=== PATIENT | male | born 1950 | race Caucasian/White ===

== ENCOUNTER 2022-09-21 19:57 | Inpatient (IN) ==
[2022-09-21] MEDS ORDERED: SODIUM CHLORIDE 0.9% 1000ML 1,000 ML IV ONE ×2 (20:16→20:55)
--- NOTE | 2022-09-21 20:25 | Emergency Department Note ---
Impression & Plan Acute alteration in mental status, Prostate cancer metastatic to bone, Acute hyponatremia, Thrombocytopenia, RAYMUNDO (acute kidney injury), Jaundice, Hyperbilirubinemia ED Provider Note NAME: BRYNN JOEL AGE: 72 SEX: M : 1950 ARRIVES VIA: Walk-In INFORMANT: Patient, the patient's daughter ED PROVIDER(S): Crispin Ocampo DO CHIEF COMPLAINT: Weakness HPI: The patient is a 72-year-old male who presented to the emergency department for generalized weakness. The patient has a history of recurrent prostate cancer which is now widely metastatic. As far as his daughter knows it is not metastatic to his liver but it is metastatic to the bone. The patient's been having ongoing and worsening altered mental status over the course of the last few days. She was noticing that he was weak and having difficulty ambulating. He had decreased p.o. intake. The patient is also been noticing that his skin is turning yellow. He has had no falls. He was diagnosed with a urinary tract infection last week but has not been able to tolerate the p.o. Bactrim that was prescribed so he stopped taking it. The patient denies having any fever today. He denies having any headache but he is difficult to get history from. He has been noncompliant with his outpatient medication regimen otherwise. ROS: See above HPI for pertinent positives & negatives. A total of 10 systems reviewed and were otherwise negative. PAST MEDICAL HISTORY: See Below PAST SURGICAL HISTORY: See Below FAMILY HISTORY: See Below SOCIAL HISTORY: See Below HOME MEDICATIONS: See Below ALLERGIES: See Below VITALS: See Below PHYSICAL EXAMINATION: GENERAL: The patient is awake to verbal commands. He does appear to fall asleep quickly when not stimulated. EYES: The conjunctivae are icteric. The pupils are round and reactive. EARS, NOSE, MOUTH AND THROAT: The nose is without any evidence of any deformity. Mucous membranes are dry. NECK: The neck is nontender and supple. RESPIRATORY: Diminished breath sounds are noted throughout. There was mild tachypnea. CARDIOVASCULAR: Tachycardic and regular heart sounds were noted to auscultation. There is no definite murmur. GASTROINTESTINAL: The abdomen is distended. There is no guarding or rigidity. There is right upper quadrant tenderness to palpation. Rectal exam revealed brown stool which was heme-negative. MUSCULOSKELETAL/EXTREMITIES: There is no evidence of gross deformity full range of motion is noted in the hips and shoulders. SKIN: Skin was icteric. There is pedal edema bilaterally. Skin was warm dry.. NEUROLOGIC: Patient is awake to verbal commands. He was oriented to person place and situation. He does recognize his daughter. Strength was symmetric but diminished. MEDICAL DECISION MAKING: The patient is a 72-year-old male who presented to the emergency department for an evaluation of altered mental status. The patient presented with his daughter. The patient has recurrent prostate cancer which is now metastatic to the bone. As far as the patient's family members were aware this is not metastatic to the liver. The family members noticed he was jaundiced. He is also been confused and not taking his medications as prescribed. He was started on an antibiotic for presumed urinary tract infection last week but it is unclear if he is taking this medication. Patient was treated with IV fluids as well as IV antibiotics. His laboratory results would reflect some degree of infection. I discussed the [facility] have agreed to evaluate the patient in the emergency department for further management and disposition. Triage Nursing notes reviewed. Prior medical records reviewed Vital Signs: reviewed and remarkable for hypotension and tachycardia. Differential diagnosis: Infection, dehydration, metabolic abnormality, hypo/hyperglycemia, electrolyte disturbance, anemia, hypoxia, cardiac sources, intracerebral event, toxicologic, neurologic, as well as other pathologies. ER treatment provided: See below Diagnostics interpreted by me: ECG: EKG was obtained in the emergency department. My interpretation is sinus tachycardia at 124 bpm. Right bundle branch block pattern was noted. There were no PVCs. This was compared to a tracing from April 22, 2022. No significant changes were noted. Cardiac Monitoring: An order was placed for continuous cardiac monitoring. The monitor shows a rate of 124 bpm with sinus tachycardia. Laboratory studies: As stated above and show below. Imaging studies: See below. Radiographic imaging was reviewed by myself Consultation(s): I discussed this case with Dr. Ha who is [facility] ED COURSE: Procedures: none Critical Care: I have personally spent greater than 45 minutes of critical care time in the direct management of this patient. This includes bedside care, interpretation of diagnostic studies, and testing, discussion with consultants, patient, and family members, and other required patient management activities. This 45 minutes is in excess of all separately billable procedures. 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 Beliefs That Will Affect Care: Mandaeism marital status: / Current Living Situation: Family current occupational status: retired Feels Safe at Home: Yes Allergies Allergies Allergy/AdvReac Type Severity Reaction Status Date / Time No Known Allergies Allergy Verified 09/15/22 09:38 Home Meds Home Medications Medication Instructions Recorded Confirmed lisinopril 30 mg tablet 15 mg PO QAM 06/06/19 08/24/22 ondansetron HCl 8 mg tablet 8 mg PO Q8H PRN Nausea 06/06/19 08/24/22 prochlorperazine maleate 10 mg 10 mg PO Q6H PRN Nausea 06/06/19 08/24/22 tablet denosumab 120 mg/1.7 mL (70 mg/mL) 0 mg subcut MO 07/03/20 08/24/22 subcutaneous solution (Xgeva) pantoprazole 40 mg tablet,delayed 40 mg PO DAILY 07/03/20 08/24/22 release aspirin 81 mg capsule 81 mg PO DAILY 03/12/22 08/24/22 methylprednisolone 4 mg tablets in mg 03/12/22 a dose pack Results & Data (ED) Vital Signs Vital Signs - 24 hr 09/21/22 20:01 09/21/22 20:17 09/21/22 20:47 Temperature 36.8 C Temperature Source Temporal Artery Scan Pulse Rate 138 H 126 H 124 H Respiratory Rate 18 Respiratory Effort / Characteristics Non-Labored Spontaneous Respiratory Depth Normal Blood Pressure 97/58 L Blood Pressure Mean 71 Pulse Oximetry 94 98 Oxygen Delivery Method Room Air Room Air Sepsis Recent Fever Within 48 Hours Yes Sepsis New/Unexplained Change in Mental Status No Sepsis Action Taken by Nursing Physician Notified Home Medications Current Medication List: was personally reviewed by me Laboratory Data Attestation: I reviewed the patient's lab results. 09/21/22 20:30 09/21/22 20:30 Lab Results 09/21/22 09/21/22 09/21/22 Range/Units 20:30 20:30 20:30 WBC 7.83 (4.8-10.8) K/ul RBC 3.40 L (4.70-6.10) M/uL Hgb 9.6 L (14.0-18.0) g/dl Hct 29.2 L (42.0-52.0) % MCV 85.9 (80.0-100.0) fL MCH 28.2 (25.0-34.0) pg MCHC 32.9 (32.0-36.0) g/dL RDW Std Deviation 54.4 H (36.4-46.3) fL RDW Coeff of Dwain 17.7 H (11.5-14.5) % Plt Count 29 L* (130-400) K/uL MPV 9.5 (9.4-12.4) fL Absolute Nucleated RBC 0.42 H (0-0.12) K/uL Nucleated RBC % (auto) 5.4 % Neutrophils % (Manual) 64 % Lymphocytes % (Manual) 11 % Monocytes % (Manual) 4 % Eosinophils % (Manual) 3 % Basophils % (Manual) 4 % Metamyelocytes % (Man) 8 % Myelocytes % (Man) 6 % Neutrophils # (Manual) 5.01 (1.40-6.50) K/uL Total Absolute Neuts 5.01 (1.4-6.5) K/uL Lymphocytes # (Manual) 0.86 L (1.2-3.4) K/uL Total Abs Lymphocytes 0.86 L (1.2-3.4) K/uL Monocytes # (Manual) 0.31 (0.11-0.59) K/uL Eosinophils # (Manual) 0.23 (0-0.50) K/uL Basophils # (Manual) 0.31 H (0-0.2) K/uL Metamyelocytes # (Man) 0.63 H (0-0) K/uL Myelocytes # (Manual) 0.47 H (0-0) K/uL Platelet Estimate Decreased L (Normal) Polychromasia 1+ Hypochromasia Present Tear Drop Cells 2+ PT 14.2 H (9.0-12.0) Seconds INR 1.3 H (0.9-1.1) APTT 33.9 H (21.0-31.0) Seconds PTT Ratio 1.2 VBG pH (7.36-7.41) VBG pCO2 (38-50) mmHg VBG pO2 mmHg VBG HCO3 mmol/L VBG O2 Saturation % VBG Base Excess mEq/L Sodium 129 L (136-145) mmol/L Potassium 5.1 (3.5-5.1) mmol/L Chloride 89 L (98-107) mmol/L Carbon Dioxide 22 (21-32) mmol/L Anion Gap 18 H (3-11) BUN 31 H (6-23) mg/dl Creatinine 1.90 H (0.6-1.4) mg/dl Est Cr Clr Drug Dosing Not Reportable Est GFR ( Amer) 40.5 ml/min Est GFR (Non-Af Amer) 34.9 ml/min BUN/Creatinine Ratio 16.3 (10-20) Glucose 99 (70-99(Fasting)) mg/dl Osmolality (280-300) mOsm/kg Lactate (0.4-2.0) mmol/L Calcium 8.5 L (8.6-10.3) mg/dl Magnesium 2.0 (1.7-2.4) mg/dl Total Bilirubin 10.8 H (0.2-1.0) mg/dl Direct Bilirubin 5.7 H (0-0.2) mg/dl AST 195 H (13-39) U/L ALT 64 H (7-52) U/L Alkaline Phosphatase 749 H (34-104) U/L Ammonia (18-72) umol/L Troponin I High Sens 16.6 (0-20) pg/ml Total Protein 5.3 L (6.0-8.3) gm/dl Albumin 2.8 L (3.4-5.0) gm/dl Procalcitonin (0-0.5) ng/ml SARS-CoV-2, RNA, NAAT (NEGATIVE) Blood Type Antibody Screen 09/21/22 09/21/22 09/21/22 Range/Units 20:30 20:30 20:30 WBC (4.8-10.8) K/ul RBC (4.70-6.10) M/uL Hgb (14.0-18.0) g/dl Hct (42.0-52.0) % MCV (80.0-100.0) fL MCH (25.0-34.0) pg MCHC (32.0-36.0) g/dL RDW Std Deviation (36.4-46.3) fL RDW Coeff of Dwain (11.5-14.5) % Plt Count (130-400) K/uL MPV (9.4-12.4) fL Absolute Nucleated RBC (0-0.12) K/uL Nucleated RBC % (auto) % Neutrophils % (Manual) % Lymphocytes % (Manual) % Monocytes % (Manual) % Eosinophils % (Manual) % Basophils % (Manual) % Metamyelocytes % (Man) % Myelocytes % (Man) % Neutrophils # (Manual) (1.40-6.50) K/uL Total Absolute Neuts (1.4-6.5) K/uL Lymphocytes # (Manual) (1.2-3.4) K/uL Total Abs Lymphocytes (1.2-3.4) K/uL Monocytes # (Manual) (0.11-0.59) K/uL Eosinophils # (Manual) (0-0.50) K/uL Basophils # (Manual) (0-0.2) K/uL Metamyelocytes # (Man) (0-0) K/uL Myelocytes # (Manual) (0-0) K/uL Platelet Estimate (Normal) Polychromasia Hypochromasia Tear Drop Cells PT (9.0-12.0) Seconds INR (0.9-1.1) APTT (21.0-31.0) Seconds PTT Ratio VBG pH 7.39 (7.36-7.41) VBG pCO2 35 L (38-50) mmHg VBG pO2 26 mmHg VBG HCO3 21 mmol/L VBG O2 Saturation < 60.0 % VBG Base Excess -3.1 mEq/L Sodium (136-145) mmol/L Potassium (3.5-5.1) mmol/L Chloride (98-107) mmol/L Carbon Dioxide (21-32) mmol/L Anion Gap (3-11) BUN (6-23) mg/dl Creatinine (0.6-1.4) mg/dl Est Cr Clr Drug Dosing Est GFR ( Amer) ml/min Est GFR (Non-Af Amer) ml/min BUN/Creatinine Ratio (10-20) Glucose (70-99(Fasting)) mg/dl Osmolality (280-300) mOsm/kg Lactate 7.3 H* (0.4-2.0) mmol/L Calcium (8.6-10.3) mg/dl Magnesium (1.7-2.4) mg/dl Total Bilirubin (0.2-1.0) mg/dl Direct Bilirubin (0-0.2) mg/dl AST (13-39) U/L ALT (7-52) U/L Alkaline Phosphatase (34-104) U/L Ammonia (18-72) umol/L Troponin I High Sens (0-20) pg/ml Total Protein (6.0-8.3) gm/dl Albumin (3.4-5.0) gm/dl Procalcitonin 2.72 H (0-0.5) ng/ml SARS-CoV-2, RNA, NAAT (NEGATIVE) Blood Type Antibody Screen 09/21/22 09/21/22 09/21/22 Range/Units 20:30 20:30 20:30 WBC (4.8-10.8) K/ul RBC (4.70-6.10) M/uL Hgb (14.0-18.0) g/dl Hct (42.0-52.0) % MCV (80.0-100.0) fL MCH (25.0-34.0) pg MCHC (32.0-36.0) g/dL RDW Std Deviation (36.4-46.3) fL RDW Coeff of Dwain (11.5-14.5) % Plt Count (130-400) K/uL MPV (9.4-12.4) fL Absolute Nucleated RBC (0-0.12) K/uL Nucleated RBC % (auto) % Neutrophils % (Manual) % Lymphocytes % (Manual) % Monocytes % (Manual) % Eosinophils % (Manual) % Basophils % (Manual) % Metamyelocytes % (Man) % Myelocytes % (Man) % Neutrophils # (Manual) (1.40-6.50) K/uL Total Absolute Neuts (1.4-6.5) K/uL Lymphocytes # (Manual) (1.2-3.4) K/uL Total Abs Lymphocytes (1.2-3.4) K/uL Monocytes # (Manual) (0.11-0.59) K/uL Eosinophils # (Manual) (0-0.50) K/uL Basophils # (Manual) (0-0.2) K/uL Metamyelocytes # (Man) (0-0) K/uL Myelocytes # (Manual) (0-0) K/uL Platelet Estimate (Normal) Polychromasia Hypochromasia Tear Drop Cells PT (9.0-12.0) Seconds INR (0.9-1.1) APTT (21.0-31.0) Seconds PTT Ratio VBG pH (7.36-7.41) VBG pCO2 (38-50) mmHg VBG pO2 mmHg VBG HCO3 mmol/L VBG O2 Saturation % VBG Base Excess mEq/L Sodium (136-145) mmol/L Potassium (3.5-5.1) mmol/L Chloride (98-107) mmol/L Carbon Dioxide (21-32) mmol/L Anion Gap (3-11) BUN (6-23) mg/dl Creatinine (0.6-1.4) mg/dl Est Cr Clr Drug Dosing Est GFR ( Amer) ml/min Est GFR (Non-Af Amer) ml/min BUN/Creatinine Ratio (10-20) Glucose (70-99(Fasting)) mg/dl Osmolality 282 (280-300) mOsm/kg Lactate (0.4-2.0) mmol/L Calcium (8.6-10.3) mg/dl Magnesium (1.7-2.4) mg/dl Total Bilirubin (0.2-1.0) mg/dl Direct Bilirubin (0-0.2) mg/dl AST (13-39) U/L ALT (7-52) U/L Alkaline Phosphatase (34-104) U/L Ammonia 54.0 (18-72) umol/L Troponin I High Sens (0-20) pg/ml Total Protein (6.0-8.3) gm/dl Albumin (3.4-5.0) gm/dl Procalcitonin (0-0.5) ng/ml SARS-CoV-2, RNA, NAAT (NEGATIVE) Blood Type A Positive Antibody Screen NEGATIVE 09/21/22 Range/Units 20:35 WBC (4.8-10.8) K/ul RBC (4.70-6.10) M/uL Hgb (14.0-18.0) g/dl Hct (42.0-52.0) % MCV (80.0-100.0) fL MCH (25.0-34.0) pg MCHC (32.0-36.0) g/dL RDW Std Deviation (36.4-46.3) fL RDW Coeff of Dwain (11.5-14.5) % Plt Count (130-400) K/uL MPV (9.4-12.4) fL Absolute Nucleated RBC (0-0.12) K/uL Nucleated RBC % (auto) % Neutrophils % (Manual) % Lymphocytes % (Manual) % Monocytes % (Manual) % Eosinophils % (Manual) % Basophils % (Manual) % Metamyelocytes % (Man) % Myelocytes % (Man) % Neutrophils # (Manual) (1.40-6.50) K/uL Total Absolute Neuts (1.4-6.5) K/uL Lymphocytes # (Manual) (1.2-3.4) K/uL Total Abs Lymphocytes (1.2-3.4) K/uL Monocytes # (Manual) (0.11-0.59) K/uL Eosinophils # (Manual) (0-0.50) K/uL Basophils # (Manual) (0-0.2) K/uL Metamyelocytes # (Man) (0-0) K/uL Myelocytes # (Manual) (0-0) K/uL Platelet Estimate (Normal) Polychromasia Hypochromasia Tear Drop Cells PT (9.0-12.0) Seconds INR (0.9-1.1) APTT (21.0-31.0) Seconds PTT Ratio VBG pH (7.36-7.41) VBG pCO2 (38-50) mmHg VBG pO2 mmHg VBG HCO3 mmol/L VBG O2 Saturation % VBG Base Excess mEq/L Sodium (136-145) mmol/L Potassium (3.5-5.1) mmol/L Chloride (98-107) mmol/L Carbon Dioxide (21-32) mmol/L Anion Gap (3-11) BUN (6-23) mg/dl Creatinine (0.6-1.4) mg/dl Est Cr Clr Drug Dosing Est GFR ( Amer) ml/min Est GFR (Non-Af Amer) ml/min BUN/Creatinine Ratio (10-20) Glucose (70-99(Fasting)) mg/dl Osmolality (280-300) mOsm/kg Lactate (0.4-2.0) mmol/L Calcium (8.6-10.3) mg/dl Magnesium (1.7-2.4) mg/dl Total Bilirubin (0.2-1.0) mg/dl Direct Bilirubin (0-0.2) mg/dl AST (13-39) U/L ALT (7-52) U/L Alkaline Phosphatase (34-104) U/L Ammonia (18-72) umol/L Troponin I High Sens (0-20) pg/ml Total Protein (6.0-8.3) gm/dl Albumin (3.4-5.0) gm/dl Procalcitonin (0-0.5) ng/ml SARS-CoV-2, RNA, NAAT NEGATIVE (NEGATIVE) Blood Type Antibody Screen Administered Medications Fentanyl Citrate (Fentanyl Citrate Pf 100 Mcg/2 Ml Vial) 50 mcg IV Q15M PRN PRN Reason: Pain Stop: 10/05/22 21:38 Last Admin: 09/21/22 21:51 Dose: 50 mcg Documented By: FABIEN Discontinued Medications Sodium Chloride (Nss 1000ml) 1,000 mls @ 999 mls/hr IV .Q1H1M ONE Stop: 09/21/22 21:16 Last Infusion: 09/21/22 22:33 Dose: 0 mls/hr Documented By: Admin: 09/21/22 20:51 Dose: 999 mls/hr Documented By: FABIEN Ceftriaxone Sodium (Rocephin) 2,000 mg in 70 mls @ 140 mls/hr IV NOW STA Stop: 09/21/22 20:58 Last Infusion: 09/21/22 22:00 Dose: 0 mls/hr Documented By: Admin: 09/21/22 21:30 Dose: 140 mls/hr Documented By: FABIEN Sodium Chloride (Nss 1000ml) 1,000 mls @ 999 mls/hr IV .Q1H1M ONE Stop: 09/21/22 21:55 Last Infusion: 09/21/22 22:34 Dose: 0 mls/hr Documented By: Admin: 09/21/22 21:30 Dose: 999 mls/hr Documented By: FABIEN Ondansetron HCl (Ondansetron Inj 2 Mg/Ml 2 Ml Vial) 4 mg IV NOW STA Stop: 09/21/22 21:40 Last Admin: 09/21/22 21:51 Dose: 4 mg Documented By: FABIEN Imaging Data Attestation: I personally reviewed and interpreted this imaging study as follows: My Impression: 1 view chest x-ray was obtained in the emergency department. My interpretation is poor inspiratory effort. No definite infiltrate, calcification of the aortic knob was noted. Widely metastatic process in the axial as well as the mus culoskeletal system. This was compared to a chest x-ray from April 22, 2022. No specific changes were noted. Final report pending. KUB was obtained in the emergency department. My interpretation is no free air, no convincing signs of obstruction, final report pending. Discharge Plan Visit Data Chief Complaint: Urinary Symptoms Stated Complaint: DEHYDRATED,UTI,FEVER,NOT EATING,UNABLE TO WALK ED Provider: Crispin Ocampo Discharge Problem: Acute alteration in mental status, Prostate cancer metastatic to bone, Acute hyponatremia, Thrombocytopenia, RAYMUNDO (acute kidney injury), Jaundice, Hyperbilirubinemia Patient Disposition: Being Evaluated by Hospitalist Forms Stand Alone Forms: My [facility] Prescriptions Prescriptions: No Action lisinopril 30 mg tablet 15 mg PO QAM ondansetron HCl 8 mg tablet 8 mg PO Q8H PRN (Reason: Nausea) prochlorperazine maleate 10 mg tablet 10 mg PO Q6H PRN (Reason: Nausea) pantoprazole 40 mg tablet,delayed release (DR/EC) 40 mg PO DAILY Xgeva 120 mg/1.7 mL (70 mg/mL) Solution 0 mg SUBCUT MO aspirin 81 mg Capsule 81 mg PO DAILY methylprednisolone 4 mg tablets,dose pack Referrals Referrals: Jamila Anne MD [Primary Care Provider] -
[2022-09-21] MEDS ORDERED: cefTRIAXone SODIUM 2,000 MG/70 ML BAG IV STA (20:29)
[2022-09-21 20:53] LABS: Base Excess VBG -3.1 mEq/L; HCO3 VBG 21 mmol/L; Oxygen Saturation VBG < 60.0 %; PCO2 VBG 35 mmHg (38-50); PO2 VBG 26 mmHg; pH VBG 7.39 (7.36-7.41)
[2022-09-21 21:18] LABS: Alanine Aminotransferase 64 U/L (7-52); Albumin Level 2.8 gm/dl (3.4-5.0); Alkaline Phosphatase 749 U/L (34-104); Anion Gap 18 (3-11); Aspartate Aminotransferase 195 U/L (13-39); BUN Creatinine Ratio 16.3 (10-20); Bilirubin Direct 5.7 mg/dl (0-0.2); Bilirubin,Total 10.8 mg/dl (0.2-1.0); Blood Urea Nitrogen 31 mg/dl (6-23); Calcium 8.5 mg/dl (8.6-10.3); Carbon Dioxide 22 mmol/L (21-32); Chloride 89 mmol/L (98-107); Est GFR (African American) 40.5 ml/min; Est GFR (Non-African American) 34.9 ml/min; Glucose 99 mg/dl (70-99(Fasting)); Potassium 5.1 mmol/L (3.5-5.1); Sodium 129 mmol/L (136-145); Total Protein 5.3 gm/dl (6.0-8.3)
[2022-09-21 21:23] LABS: Troponin I High Sensitivity 16.6 pg/ml (0-20)
[2022-09-21 21:26] LABS: Hematocrit (blood only) 29.2 % (42.0-52.0); Hemoglobin 9.6 g/dl (14.0-18.0); Mean Platelet Volume 9.5 fL (9.4-12.4); Platelet Count 29 K/uL (130-400); White Blood Count 7.83 K/ul (4.8-10.8)
[2022-09-21 21:29] LABS: INR 1.3 (0.9-1.1); Partial Thromboplastin Ratio 1.2; Partial Thromboplastin Time 33.9 Seconds (21.0-31.0); Prothrombin Time 14.2 Seconds (9.0-12.0)
[2022-09-21] MEDS ORDERED: ONDANSETRON INJ 2 MG/ML 2 ML VIAL IV STA (21:39)
[2022-09-21] MEDS ORDERED: fentaNYL citrate PF 100 MCG/2 ML VIAL IV PRN (21:39)
[2022-09-21 22:25] LABS: ALC (manual) 0.86 K/uL (1.2-3.4); ANC (manual) 5.01 K/uL (1.4-6.5); Basophils # (manual) 0.31 K/uL (0-0.2); Basophils % (manual) 4 %; Eosinophils # (manual) 0.23 K/uL (0-0.50); Eosinophils % (manual) 3 %; Hypochromasia Present; Lymphocytes # (manual) 0.86 K/uL (1.2-3.4); Lymphocytes % (manual) 11 %; Mean Corpuscular Hemoglobin 28.2 pg (25.0-34.0); Mean Corpuscular Hgb Conc 32.9 g/dL (32.0-36.0); Mean Corpuscular Volume 85.9 fL (80.0-100.0); Metamyelocytes # (manual) 0.63 K/uL (0-0); Metamyelocytes % (manual) 8 %; Monocytes # (manual) 0.31 K/uL (0.11-0.59); Monocytes % (manual) 4 %; Myelocytes # (manual) 0.47 K/uL (0-0); Myelocytes % (manual) 6 %; Neutrophils # (manual) 5.01 K/uL (1.40-6.50); Neutrophils % (manual) 64 %; Nucleated RBC # (auto) 0.42 K/uL (0-0.12); Nucleated RBC % (auto) 5.4 %; Platelet Estimate Decreased (Normal); Polychromasia 1+; RDW Coefficient of Variation 17.7 % (11.5-14.5); RDW Standard Deviation 54.4 fL (36.4-46.3); Tear Drop Cells 2+
[2022-09-21] MEDS ORDERED: OPTIRAY 320 100ml IV ONE (22:56)
--- NOTE | 2022-09-21 23:30 | CT Scan Report ---
Exam(s): CT HEAD Without Contrast EXAM: CT Head Without Intravenous Contrast CLINICAL HISTORY: Reason for exam: AMS. TECHNIQUE: Axial computed tomography images of the head/brain without intravenous contrast. Automated exposure control was utilized for the study. A dose lowering technique was utilized adhering to the principles of ALARA. COMPARISON: No relevant prior studies available. FINDINGS: No acute intracranial hemorrhage. No midline shift or mass effect. The territorial thakkar-white matter differentiation is maintained throughout. Age-related cerebral volume loss. Periventricular and subcortical white matter hypoattenuation, consistent with chronic microangiopathy. The visualized orbits appear grossly unremarkable. The calvarium is intact. The visualized paranasal sinuses and mastoid air cells are grossly clear. IMPRESSION: No acute intracranial hemorrhage, midline shift, or mass effect. Electronically signed by: George Ramos MD 09/21/22 23:29 PM
--- NOTE | 2022-09-21 23:35 | CT Scan Report ---
Exam(s): CT ABDOMEN + PELVIS With Contrast IV Amt: 89 ml optiray 320 EXAM: CT Abdomen and Pelvis With Intravenous Contrast CLINICAL HISTORY: Reason for exam: jaundicce, metastatic prostate CA. TECHNIQUE: Axial computed tomography images of the abdomen and pelvis with intravenous contrast. Automated exposure control was utilized for the study. A dose lowering technique was utilized adhering to the principles of ALARA. CONTRAST: Patient received 89 ml optiray 320 of IV contrast COMPARISON: No relevant prior studies available. FINDINGS: Lung bases: Unremarkable. No mass. No consolidation. ABDOMEN: Liver: Unremarkable. No mass. Gallbladder and bile ducts: Unremarkable. No calcified stones. No ductal dilation. Pancreas: Unremarkable. No mass. No ductal dilation. Spleen: Unremarkable. No splenomegaly. Adrenals: Unremarkable. No mass. Kidneys and ureters: Unremarkable. No hydronephrosis or delayed nephrogram. Stomach and bowel: Unremarkable. No acute diverticulitis. No small bowel obstruction. No free intraperitoneal air. PELVIS: Appendix: No findings to suggest acute appendicitis. Bladder: Unremarkable. No mass. Reproductive: Prostatectomy. ABDOMEN and PELVIS: Intraperitoneal space: Abdominal ascites. No free air. Bones/joints: Diffuse osteosclerosis, consistent with diffuse osseous metastatic prostate cancer. No acute fracture. No dislocation. Soft tissues: Unremarkable. Vasculature: Diffuse, heterogeneous low attenuation throughout the liver, concerning for hepatic metastases (more likely) versus hepatic congestion (Budd-Chiari syndrome). Correlate for portal vein thrombosis. Consider hepatic ultrasound. Atherosclerotic changes of the aorta. No abdominal aortic aneurysm. Lymph nodes: Unremarkable. No enlarged lymph nodes. IMPRESSION: 1. Diffuse, heterogeneous low attenuation throughout the liver, concerning for hepatic metastases (more likely) versus hepatic congestion (Budd-Chiari syndrome). Correlate for portal vein thrombosis. Consider hepatic ultrasound. 2. Diffuse osteosclerosis, consistent with diffuse osseous metastatic prostate cancer. Electronically signed by: George Ramos MD 09/21/22 23:34 PM
[2022-09-21 23:54] LABS: Lipase 21 U/L (11-82); Phosphorus 2.4 mg/dl (2.5-4.9)
[2022-09-22] LABS: Fibrinogen 316 mg/dl (184-400)
[2022-09-22 00:20] LABS: Lyme Ab IgG w/WB Rflx Negative (Negative); Lyme Ab IgM w/WB Rflx Negative (Negative)
--- NOTE | 2022-09-22 00:54 | History & Physical Report ---
Date of Service September 22, 2022 Assessment & Plan (1) Abnormal LFTs: Plan: 72yo male with history of metastatic prostate cancer presenting to [facility] with laboratory evidence suggestive of acute liver failure. Patient reports several days of not feeling well as well as 1-2 days of jaundice/icterus and abdominal bloating. Laboratory workup thus far with abnormal liver studies - mixed heptatocellular/obstructive pattern with ZTH=636, ALT=64, Tbili=10.8, Dbili=5.7, Alkaline jtaedxwarfs=012. These results were mildly abnormal on 09/15/22 with AST of 55, Tbili of 2.4 and AP of 530 with known bony metastatic disease. UA from 09/15/22 also with +bilirubin/urobilinogen suggestive of underlying hepatic pathology. INR=1.3, Platelets=29, Albumin=2.8, Du=053 Patieint with marked elevation of Ferritin >7500, ZET=7665 Tylenol level <3 Ammonia normal at 54 Lyme IgG and IgM NEGATIVE. No evidence of intraerythrocytic inclusion bodies on smear to suggest Anaplasmosis or Babesiosis. Does have elevation of Procalcitonin Pending studies at this time include acute hepatitis panel, lipid panel (with markedly elevated Ferritin, ?hematological malignancy - hemophagocytic lymphohistiocytosis workup?) Imaging as above suggestive of hepatic metastatic disease. Low concern for p ortal vein thrombosis. Consider Bactrim as possible cause for liver dysfunction - seem though that liver dysfunction present prior to initiation of Bactrim? -Admit to PCU -Follow cultures -Repeat LFTs, Lactate and chemistry panels in AM -Will continue Ceftriaxone 2gm IV daily -Gentle IVF NSS x 1 additional liter -GI consultation appreciated -Oncology consultation appreciated Daughter updated at bedside (2) Prostate cancer metastatic to bone: Plan: Noted. Concern for hepatic involvement. Patient had been on Oxycodone PRN. -Dilaudid as needed for pain per scale -Oncology consultation appreciated (3) Hypertension: Plan: Blood pressure presently stable. Daughter reports lower blood pressures at home over the last several days. -Holding home medications for now -Continue to monitor F/E/N - NSS at 125mL/hr x 1L, monitor electrolytes, Low Na diet Ppx - SCDs Code - Full per discussion with patient Dispo - Admit to PCU History of Present Illness Chief Complaint: liver failure Primary Care Provider: MD Angel Blackmanel Feather is a pleasant 72yo male with history of prostate cancer initially diagnosed 8 years ago s/p radical prostatectomy performed at [facility] in 2012. He was treated with Casodex and Lupron and received 7 cycles of docetaxel. Patient unfortunately has had recurrence of his prostate cancer. Has had elevated PSA levels since 06/2020 with evidence of diffuse bony metastatic disease - last PSA 07/30/22 = 170. Patient's last chemotherapy was March 2022. He is apparently to be seen again at [facility] for a bone marrow biopsy and possible discussion of further treatments. Patient with baseline anemia. He had a blood transfusion on 09/15/21 for Hgb of 6.6. Daughter reports that patient developed a fairly high fever during the transfusion. He had some routine blood work sent and a UA and was told that he has a UTI (UA with nitrites, 1+ bilirubin and urobilinogen as well as trace LE, 10-30 WBC and 1+ bacteria) and was given a prescription for Bactrim. Daughter reports patient took two days of Bactrim then began feeling more ill. Over the last two days he has developed worsening fatigue, poor appetite and decreased oral intake with early satiety as well as abdominal distention. Brief episodes of confusion over the last 1-2 days as well. His daughter noted scleral icterus and jaundice today which prompted them to seek medical care. Patient reports generalized body pain and joint pain over the last 3 weeks with acute worsening over the last 2-3 days. Specifically complaining of bilateral knee pain and wrist pain. He has had low blood pressure at home as well. Otherwise - no report of fever, chills, cough, SOB, nausea, vomiting or diarrhea. He has had some constipation. In the ER he is afebrile, sinus tachycardia with HR of 124bpm, borderline lower blood pressure initially at 97/58. Lab results and images as below ER Course: NSS x 2L Ceftriaxone 2gm Fentanyl 50mcg Zofran 4mg IV Allergies Allergy/AdvReac Type Severity Reaction Status Date / Time No Known Allergies Allergy Verified 09/15/22 09:38 Home Medications Medication Instructions Recorded Confirmed Type ondansetron HCl 8 mg tablet 8 mg PO Q8H PRN Nausea 06/06/19 09/21/22 History pantoprazole 40 mg tablet,delayed 40 mg PO DAILY 07/03/20 09/21/22 History release aspirin 81 mg capsule 81 mg PO DAILY 03/12/22 09/21/22 History oxycodone 10 mg tablet 10 mg PO Q4 PRN mod to severe pain 09/21/22 09/21/22 History prednisone 10 mg tablet 10 mg PO DAILY 09/21/22 09/21/22 History Past Med/Surg History Medical History (Updated 09/22/22 @ 02:17 by Anita Ha DO) Hypertension Prostate cancer metastatic to bone Syncope Surgical History (Updated 09/22/22 @ 02:13 by Anita Ha DO) S/P prostatectomy Family History Other No pertinent family history Social History Smoking Status: Never smoker Tobacco Type: Cigarettes Preferred Language: Turkish Communication Ability: Effective Visual Impairment: No Limitations Hearing Ability: Normal Time Study Statistician Required: No Beliefs That Will Affect Care: Yazdanism marital status: / Current Living Situation: Family current occupational status: retired Feels Safe at Home: Yes Review of Systems Review of Systems: All systems reviewed & are unremarkable except as noted in HPI & below Physical Exam Physical Exam: General: patient resting comfortably, NAD, ill in appearance, oriented x 4 Skin: warm, dry, intact, no rashes or lesions HEENT: NC/AT, PERRL, EOMI, +SCLERAL ICTERUS, conjunctiva without injection, external ear normal to inspection and nontender, nares patent, DRY mucus membranes, dentition intact, no oropharyngeal lesions, SUBLINGUAL JAUNDICE, neck supple, trachea midline, no LAD, no thyromegaly, no JVD Heart: +S1/S2, regular, tachycardic, no m/r/g Lungs: equal air entry bilaterally, no rales/rhonchi/wheezes Abd: +BS, soft, distended and tympanic to percussion, mild tenderness with palpation of RUQ, no rebound/guarding/peritonitis Ext: warm, 2+ pulses in UE/LE bilaterally, no clubbing/cyanosis, 2+ pitting edema of bilateral LE Neuro: nonfocal, patient AA&O x 4, speech intact, no facial droop, moving all extremities on command with equal strength 5/5, no asterixis Results & Data Results & Data Vital Signs (Past 12 Hours) Vital Signs Temp Pulse Resp BP Pulse Ox O2 Del Method 09/21/22 20:47 124 H 98 Room Air 09/21/22 20:17 126 H 09/21/22 20:01 36.8 C 138 H 18 97/58 L 94 Room Air Laboratory Results Laboratory Results WBC 7.83 K/ul (4.8-10.8) 09/21/22 20:30 RBC 3.40 M/uL (4.70-6.10) L 09/21/22 20:30 Hgb 9.6 g/dl (14.0-18.0) L 09/21/22 20:30 Hct 29.2 % (42.0-52.0) L 09/21/22 20:30 MCV 85.9 fL (80.0-100.0) 09/21/22 20:30 MCH 28.2 pg (25.0-34.0) 09/21/22 20:30 MCHC 32.9 g/dL (32.0-36.0) 09/21/22 20:30 RDW Std Deviation 54.4 fL (36.4-46.3) H 09/21/22 20:30 RDW Coeff of Dwain 17.7 % (11.5-14.5) H 09/21/22 20:30 Plt Count 29 K/uL (130-400) L* 09/21/22 20:30 MPV 9.5 fL (9.4-12.4) 09/21/22 20:30 Absolute Nucleated RBC 0.42 K/uL (0-0.12) H 09/21/22 20:30 Nucleated RBC % (auto) 5.4 % 09/21/22 20:30 Neutrophils % (Manual) 64 % 09/21/22 20:30 Lymphocytes % (Manual) 11 % 09/21/22 20:30 Monocytes % (Manual) 4 % 09/21/22 20:30 Eosinophils % (Manual) 3 % 09/21/22 20:30 Basophils % (Manual) 4 % 09/21/22 20:30 Metamyelocytes % (Man) 8 % 09/21/22 20:30 Myelocytes % (Man) 6 % 09/21/22 20:30 Neutrophils # (Manual) 5.01 K/uL (1.40-6.50) 09/21/22 20:30 Total Absolute Neuts 5.01 K/uL (1.4-6.5) 09/21/22 20:30 Lymphocytes # (Manual) 0.86 K/uL (1.2-3.4) L 09/21/22 20:30 Total Abs Lymphocytes 0.86 K/uL (1.2-3.4) L 09/21/22 20:30 Monocytes # (Manual) 0.31 K/uL (0.11-0.59) 09/21/22 20:30 Eosinophils # (Manual) 0.23 K/uL (0-0.50) 09/21/22 20:30 Basophils # (Manual) 0.31 K/uL (0-0.2) H 09/21/22 20:30 Metamyelocytes # (Man) 0.63 K/uL (0-0) H 09/21/22 20:30 Myelocytes # (Manual) 0.47 K/uL (0-0) H 09/21/22 20:30 Platelet Estimate Decreased (Normal) L 09/21/22 20:30 Polychromasia 1+ 09/21/22 20:30 Hypochromasia Present 09/21/22 20:30 Tear Drop Cells 2+ 09/21/22 20:30 PT 14.2 Seconds (9.0-12.0) H 09/21/22 20:30 INR 1.3 (0.9-1.1) H 09/21/22 20:30 APTT 33.9 Seconds (21.0-31.0) H 09/21/22 20:30 PTT Ratio 1.2 09/21/22 20:30 Fibrinogen 316 mg/dl (184-400) 09/21/22 23:19 VBG pH 7.39 (7.36-7.41) 09/21/22 20:30 VBG pCO2 35 mmHg (38-50) L 09/21/22 20:30 VBG pO2 26 mmHg 09/21/22 20:30 VBG HCO3 21 mmol/L 09/21/22 20:30 VBG O2 Saturation < 60.0 % 09/21/22 20:30 VBG Base Excess -3.1 mEq/L 09/21/22 20:30 Sodium 129 mmol/L (136-145) L 09/21/22 20:30 Potassium 5.1 mmol/L (3.5-5.1) 09/21/22 20:30 Chloride 89 mmol/L (98-107) L 09/21/22 20:30 Carbon Dioxide 22 mmol/L (21-32) 09/21/22 20:30 Anion Gap 18 (3-11) H 09/21/22 20:30 BUN 31 mg/dl (6-23) H 09/21/22 20:30 Creatinine 1.90 mg/dl (0.6-1.4) H 09/21/22 20:30 Est Cr Clr Drug Dosing Not Reportable 09/21/22 20:30 Est GFR ( Amer) 40.5 ml/min 09/21/22 20:30 Est GFR (Non-Af Amer) 34.9 ml/min 09/21/22 20:30 BUN/Creatinine Ratio 16.3 (10-20) 09/21/22 20:30 Glucose 99 mg/dl (70-99(Fasting)) 09/21/22 20:30 Osmolality 282 mOsm/kg (280-300) 09/21/22 20:30 Lactate 4.4 mmol/L (0.4-2.0) H* 09/21/22 23:19 Calcium 8.5 mg/dl (8.6-10.3) L 09/21/22 20:30 Phosphorus 2.4 mg/dl (2.5-4.9) L 09/21/22 23:19 Magnesium 2.0 mg/dl (1.7-2.4) 09/21/22 20:30 Ferritin > 7500.0 ng/ml (8-388) H 09/21/22 23:19 Total Bilirubin 10.8 mg/dl (0.2-1.0) H 09/21/22 20:30 Direct Bilirubin 5.7 mg/dl (0-0.2) H 09/21/22 20:30 AST 195 U/L (13-39) H 09/21/22 20:30 ALT 64 U/L (7-52) H 09/21/22 20:30 Alkaline Phosphatase 749 U/L (34-104) H 09/21/22 20:30 Ammonia 54.0 umol/L (18-72) 09/21/22 20:30 Lactate Dehydrogenase 2050 U/L (86-244) H 09/21/22 23:19 Troponin I High Sens 16.6 pg/ml (0-20) 09/21/22 20:30 Total Protein 5.3 gm/dl (6.0-8.3) L 09/21/22 20:30 Albumin 2.8 gm/dl (3.4-5.0) L 09/21/22 20:30 Lipase 21 U/L (11-82) 09/21/22 23:19 Procalcitonin 2.72 ng/ml (0-0.5) H 09/21/22 20:30 Acetaminophen < 3 ug/ml (10-30) L 09/21/22 23:19 Anaplasma Smear See Comment 09/21/22 23:19 Babesia Smear See Comment 09/21/22 23:19 Lyme Disease IgG Ab Negative (Negative) 09/21/22 23:19 Lyme Disease IgM Ab Negative (Negative) 09/21/22 23:19 SARS-CoV-2, RNA, NAAT NEGATIVE (NEGATIVE) 09/21/22 20:35 Blood Type A Positive 09/21/22 20:30 Antibody Screen NEGATIVE 09/21/22 20:30 Impressions Abdomen/Pelvis CT 09/21/22 22:37 Exam(s): CT ABDOMEN + PELVIS With Contrast IV Amt: 89 ml optiray 320 EXAM: CT Abdomen and Pelvis With Intravenous Contrast CLINICAL HISTORY: Reason for exam: jaundicce, metastatic prostate CA. TECHNIQUE: Axial computed tomography images of the abdomen and pelvis with intravenous contrast. Automated exposure control was utilized for the study. A dose lowering technique was utilized adhering to the principles of ALARA. CONTRAST: Patient received 89 ml optiray 320 of IV contrast COMPARISON: No relevant prior studies available. FINDINGS: Lung bases: Unremarkable. No mass. No consolidation. ABDOMEN: Liver: Unremarkable. No mass. Gallbladder and bile ducts: Unremarkable. No calcified stones. No ductal dilation. Pancreas: Unremarkable. No mass. No ductal dilation. Spleen: Unremarkable. No splenomegaly. Adrenals: Unremarkable. No mass. Kidneys and ureters: Unremarkable. No hydronephrosis or delayed nephrogram. Stomach and bowel: Unremarkable. No acute diverticulitis. No small bowel obstruction. No free intraperitoneal air. PELVIS: Appendix: No findings to suggest acute appendicitis. Bladder: Unremarkable. No mass. Reproductive: Prostatectomy. ABDOMEN and PELVIS: Intraperitoneal space: Abdominal ascites. No free air. Bones/joints: Diffuse osteosclerosis, consistent with diffuse osseous metastatic prostate cancer. No acute fracture. No dislocation. Soft tissues: Unremarkable. Vasculature: Diffuse, heterogeneous low attenuation throughout the liver, concerning for hepatic metastases (more likely) versus hepatic congestion (Budd-Chiari syndrome). Correlate for portal vein thrombosis. Consider hepatic ultrasound. Atherosclerotic changes of the aorta. No abdominal aortic aneurysm. Lymph nodes: Unremarkable. No enlarged lymph nodes. IMPRESSION: 1. Diffuse, heterogeneous low attenuation throughout the liver, concerning for hepatic metastases (more likely) versus hepatic congestion (Budd-Chiari syndrome). Correlate for portal vein thrombosis. Consider hepatic ultrasound. 2. Diffuse osteosclerosis, consistent with diffuse osseous metastatic prostate cancer. Electronically signed by: George Ramos MD 09/21/22 23:[address] 09/21/22 22:37 Exam(s): CT HEAD Without Contrast EXAM: CT Head Without Intravenous Contrast CLINICAL HISTORY: Reason for exam: AMS. TECHNIQUE: Axial computed tomography images of the head/brain without intravenous contrast. Automated exposure control was utilized for the study. A dose lowering technique was utilized adhering to the principles of ALARA. COMPARISON: No relevant prior studies available. FINDINGS: No acute intracranial hemorrhage. No midline shift or mass effect. The territorial thakkar-white matter differentiation is maintained throughout. Age-related cerebral volume loss. Periventricular and subcortical white matter hypoattenuation, consistent with chronic microangiopathy. The visualized orbits appear grossly unremarkable. The calvarium is intact. The visualized paranasal sinuses and mastoid air cells are grossly clear. IMPRESSION: No acute intracranial hemorrhage, midline shift, or mass effect. Electronically signed by: George Ramos MD 09/21/22 23:29 PM Portal Vein US 09/21/22 23:44 Exam(s): US LIVER EXAM: US Abdomen Limited CLINICAL HISTORY: Reason for exam: ?portal vein thrombosis?. TECHNIQUE: Real-time ultrasound of the abdomen with image documentation. COMPARISON: CT abdomen and pelvis, same day. FINDINGS/IMPRESSION: Severely heterogeneous hepatic echotexture, as noted on the concomitant abdominal CT scan. The portal vein is patent with hepatopedal flow (correct direction). Low index of suspicion for Budd-Chiari syndrome. Abdominal ascites. Electronically signed by: George Ramos MD 09/22/22 01:19 AM Code Status & VTE Plan VTE Prophylaxis Plan VTE Prophylaxis will be ordered: Yes PG Care Time/CCT Total # of Minutes Spent Total Time Spent with Patient: Total time spent is greater than 50% in coordination of care (as documented) at patient's floor/unit and/or counseling patient: Coding Level of Care Code 80708 INT INP/OBS CARE 3/75MIN Diagnoses Abnormal LFTs R79.89 Prostate cancer metastatic to bone C61; C79.51 Hypertension I10
[2022-09-22 01:02] LABS: Ferritin > 7500.0 ng/ml (8-388)
--- NOTE | 2022-09-22 01:20 | Ultrasound Report ---
Exam(s): US LIVER EXAM: US Abdomen Limited CLINICAL HISTORY: Reason for exam: ?portal vein thrombosis?. TECHNIQUE: Real-time ultrasound of the abdomen with image documentation. COMPARISON: CT abdomen and pelvis, same day. FINDINGS/IMPRESSION: Severely heterogeneous hepatic echotexture, as noted on the concomitant abdominal CT scan. The portal vein is patent with hepatopedal flow (correct direction). Low index of suspicion for Budd-Chiari syndrome. Abdominal ascites. Electronically signed by: George Ramos MD 09/22/22 01:19 AM
[2022-09-22] MEDS ORDERED: SODIUM CHLORIDE 0.9% 1000ML 1,000 ML IV SCH (01:50)
[2022-09-22 04:16] LABS: Appearance Urine Clear (Clear); Bacteria Urine Automated Negative (Negative); Blood Urine Negative (Negative); Color Urine Dark Yellow; Epithelial Cell Urine Auto 0-5 /lpf (0-5); Glucose Urine UA Negative (Negative); Ketones Urine Negative (Negative); Leukocyte Esterase Urine Trace (Negative); Nitrite Urine Positive (Negative); Protein Urine Trace (Negative); RBC Urine Automated 0-4 /hpf (0-4); Urobilinogen Urine Negative (Negative)
[2022-09-22 04:33] LABS: Bilirubin Urine 2+ (Negative)
[2022-09-22 06:46] LABS: Hematocrit (blood only) 24.1 % (42.0-52.0); Hemoglobin 8.2 g/dl (14.0-18.0); Mean Corpuscular Hemoglobin 28.3 pg (25.0-34.0); Mean Corpuscular Volume 83.1 fL (80.0-100.0); Nucleated RBC # (auto) 0.25 K/uL (0-0.12); Nucleated RBC % (auto) 3.4 %; Platelet Count 22 K/uL (130-400); RDW Coefficient of Variation 17.6 % (11.5-14.5); RDW Standard Deviation 52.5 fL (36.4-46.3); White Blood Count 7.36 K/ul (4.8-10.8)
[2022-09-22 06:52] LABS: Alanine Aminotransferase 52 U/L (7-52); Albumin Level 2.4 gm/dl (3.4-5.0); Alkaline Phosphatase 573 U/L (34-104); Anion Gap 11 (3-11); Aspartate Aminotransferase 154 U/L (13-39); Bilirubin Direct 5.7 mg/dl (0-0.2); Bilirubin,Total 9.5 mg/dl (0.2-1.0); Blood Urea Nitrogen 27 mg/dl (6-23); Calcium 7.5 mg/dl (8.6-10.3); Carbon Dioxide 22 mmol/L (21-32); Chloride 97 mmol/L (98-107); Creatinine Clr Calc Pharmacy 41.8 ml/min; Est GFR (African American) 50.2 ml/min; Est GFR (Non-African American) 43.3 ml/min; Glucose 79 mg/dl (70-99(Fasting)); HDL Cholesterol 5 mg/dl; INR 1.4 (0.9-1.1); Potassium 4.6 mmol/L (3.5-5.1); Prothrombin Time 14.9 Seconds (9.0-12.0); Sodium 130 mmol/L (136-145); Total Protein 4.4 gm/dl (6.0-8.3); Triglycerides 226 mg/dl (0-150); VLDL Cholesterol 45 mg/dl (0-30)
--- NOTE | 2022-09-22 07:58 | Hospitalist Progress Note ---
Date of Service September 22, 2022 Assessment & Plan (1) Abnormal LFTs: Plan: 72yo male with history of metastatic prostate cancer presenting to [facility] with laboratory evidence suggestive of acute liver failure. Suspected metastatic liver cancer causing acute liver failure Patient reports several days of not feeling well as well as 1-2 days of jaundice/icterus and abdominal bloating (no BM x 2 weeks reported) Laboratory workup thus far with abnormal liver studies - mixed heptatocellular/obstructive pattern with LJR=187, ALT=64, Tbili=10.8, Dbili=5.7, Alkaline [id number]=362. These results were mildly abnormal on 09/15/22 with AST of 55, Tbili of 2.4 and AP of 530 with known bony metastatic disease. UA from 09/15/22 also with +bilirubin/urobilinogen suggestive of underlying hepatic pathology. INR=1.3, Platelets=29, Albumin=2.8, Mo=672 Reports some hypotension at home as well, ?shock contributing as well Imaging as above suggestive of hepatic metastatic disease. US doppler NEGATIVE for portal vein thrombosis Patient with marked elevation of Ferritin >7500, VEA=4023 Tylenol level <3 Ammonia normal at 54, however no BM x 2 weeks and will schedule lactulose BID and titrate as needed Lyme IgG and IgM NEGATIVE. No evidence of intraerythrocytic inclusion bodies on smear to suggest Anaplasmosis or Babesiosis. Does have elevation of Procalcitonin 2.72 Blood cultures pending -- monitor LFTs trending down Lactic checked, trending down Na/chl improved to 130/97 CK checked but has gotten several L IVF thus far, borderline of high normal on range Additional IVF NS @ 80cc/hr for additional 1L. Cr improved from 1.9--> 1.59 on repeat Continue Ceftriaxone IV 2gm daily Hepatitis panel pending -- monitor Consider Bactrim vs hypotension/shock as possible cause for liver dysfunction - seem though that liver dysfunction present prior to initiation of Bactrim? GI/heme/oncology consults pending -- appreciate assistance. ?hematological malignancy - hemophagocytic lymphohistiocytosis workup? ?tap for eval malignant ascites --> defer to heme/onc in consultation this afternoon No significant large volume ascites noted on imaging. Does have distension but as above, reporting no BM x 2 weeks. Bladder scan as needed as well to determine if any retention from constipation occurring Monitor LFTs/INR/CBC in AM PT/OT consults (2) Prostate cancer metastatic to bone: Plan: Noted. Concern for hepatic involvement now. Patient had been on Oxycodone PRN/prednisone 10mg daily. Dilaudid as needed for pain per scale bowel regimen w/ lactulose. consider continuing at d/c given no BM x 2 weeks reported Oncology consultation appreciated -- to see this afternoon (3) Hypertension: Plan: Blood pressure presently stable. Daughter reports lower blood pressures at home over the last several days --? how low --? shock liver. No granular casts on UA however On prednisone 10mg daily ?if shock/adrenal insuffiency contributing to above. check cortisol w/ AM labs if any issues w/ low BPs again, consider stress dose steroids Not on any BP meds at home -- consider adding low dose metoprolol for tachycardia but will monitor w/ additional IVF for now BP currently 135/84 (4) Anemia: Plan: hgb appears around baseline monitor for any bleeding check b12/b1 w/ prior labs, folate in AM replacement as needed will also check iron panel w/ AM labs CBC in AM (5) RAYMUNDO (acute kidney injury): Plan: on admit, BUN/Cr elevated to 31/1.9 IVF x 1 L on admit, BUN/Cr improved to 27/1.59 Checked CK as above Possible recent UTI but do not have culture data Coverage w/ Rocephin IV as above Avoid nephrotoxins/renal dose meds as able Additional IVF @ 80cc/hr ordered and will monitor BMP in AM Bladder scan as needed for urine retention Monitor urine cx w/ understanding had been on Bactrim [employer] and had gotten dose Ceftriaxone (6) Hyponatremia: Plan: improving w/ IVF suspect poor PO intake as reports prior to admission, bactrim use/tolerance monitor levels on repeat w/ additional IVF Admission and Anticipated Discharge Date Admission Date: September 22, 2022 Supervising Physician Co-Signing Physician Notes The patient was not seen by me. The chart was reviewed. Case discussed with LU Montiel. Agree with assessment and plan Subjective BRIDGE NOTE: ADMIT AFTER MIDNIGHT Patient eval in room 236, laying in bed, no acute distress. Has some shortness of breath up/moving around but none at rest. Denies any chest pain. HRs had been improving, additional IVF ordered as dropped off. Currently 120-130s. No palpitations/fluttering reported or lightheadedness/dizziness. LFTs improving. He is unsure how low Bps had gotten, but discussed possible shock liver as well but additional labs pending. Poor appetite reported. Passing some gas but has some increased abdominal bloating. Reports hasn't moved his bowels in about two weeks. Will order medication to assist. Has some LE edema, nontender, but reports has been slightly more swollen recently, along the same time he has had decreased appetite. Currently on room air. Discussed heme/onc, he is following w/ [facility] but discussed consultation w/ Dr Hall later today for additional recommendations. Questions/concerns addressed at this time. Physical Exam Physical Exam: General: WD/WN male, chronically ill appearing laying in bed, NAD HEENT: +bilateral icterus, mm slightly dry, HARD of hearing Resp: diminished in the bases, poor effort, no w/c, on room air CV: regular rhythm, slightly tachycardic to the 120s, no significant m/r/g, 1-2+ b/l LE edema GI: +BS throughout, DISTENDED, tender to palpation RUQ without rebound/guarding : no gu MSK/Neuro: no focal deficits, no slurred speech Psych: AO to person/place, intermittent forgetfulness to time Results & Data Results & Data Vital Signs (Past 12 Hours) Vital Signs Temp Pulse Pulse Resp BP BP Pulse Ox 09/22/22 07:17 37.1 C 123 H 19 129/77 91 09/22/22 02:08 120 H 09/22/22 01:54 37.3 C 134 H 18 123/78 92 09/22/22 01:45 09/22/22 01:30 2 L 09/22/22 00:00 129 H 24 92 09/22/22 00:00 134/84 09/21/22 23:50 120 H 17 94 09/21/22 23:40 119 H 21 93 09/21/22 23:31 14 09/21/22 23:31 122/83 09/21/22 22:40 131 H 17 93 09/21/22 22:30 129 H 24 91 09/21/22 22:30 100/77 09/21/22 22:20 127 H 23 93 09/21/22 22:10 123 H 24 92 09/21/22 22:00 122 H 27 H 93 09/21/22 22:00 133/87 09/21/22 21:50 121 H 25 H 94 09/21/22 21:45 155/88 H 09/21/22 21:45 123 H 26 H 94 09/21/22 21:40 125 H 24 96 09/21/22 21:30 121 H 21 09/21/22 21:20 117 H 25 H 93 09/21/22 21:10 116 H 26 H 94 09/21/22 21:00 117 H 29 H 96 09/21/22 20:50 121 H 20 95 09/21/22 20:40 126 H 31 H 94 09/21/22 20:30 128 H 25 H 94 09/21/22 20:20 126 H 21 93 09/21/22 20:16 125 H 27 H 94 09/21/22 20:47 124 H 98 09/21/22 20:17 126 H 09/21/22 20:01 36.8 C 138 H 18 97/58 L 94 O2 Del Method O2 Flow Rate 09/22/22 07:17 Room Air 09/22/22 02:08 09/22/22 01:54 Room Air 09/22/22 01:45 Nasal Cannula 09/22/22 01:30 Nasal Cannula 09/22/22 00:00 09/22/22 00:00 09/21/22 23:50 09/21/22 23:40 Nasal Cannula 2 09/21/22 23:31 09/21/22 23:31 09/21/22 22:40 09/21/22 22:30 09/21/22 22:30 09/21/22 22:20 09/21/22 22:10 09/21/22 22:00 09/21/22 22:00 09/21/22 21:50 09/21/22 21:45 09/21/22 21:45 09/21/22 21:40 09/21/22 21:30 09/21/22 21:20 09/21/22 21:10 09/21/22 21:00 09/21/22 20:50 09/21/22 20:40 09/21/22 20:30 09/21/22 20:20 09/21/22 20:16 09/21/22 20:47 Room Air 09/21/22 20:17 09/21/22 20:01 Room Air Laboratory Results 09/22/22 09/22/22 09/22/22 Range/Units 06:07 06:03 06:03 WBC 7.36 (4.8-10.8) K/ul RBC 2.90 L (4.70-6.10) M/uL Hgb 8.2 L (14.0-18.0) g/dl Hct 24.1 L (42.0-52.0) % MCV 83.1 (80.0-100.0) fL MCH 28.3 (25.0-34.0) pg MCHC 34.0 (32.0-36.0) g/dL RDW Std Deviation 52.5 H (36.4-46.3) fL RDW Coeff of Dwain 17.6 H (11.5-14.5) % Plt Count 22 L* (130-400) K/uL MPV (9.4-12.4) fL Absolute Nucleated RBC 0.25 H (0-0.12) K/uL Nucleated RBC % (auto) 3.4 % Neutrophils % (Manual) % Lymphocytes % (Manual) % Monocytes % (Manual) % Eosinophils % (Manual) % Basophils % (Manual) % Metamyelocytes % (Man) % Myelocytes % (Man) % Neutrophils # (Manual) (1.40-6.50) K/uL Total Absolute Neuts (1.4-6.5) K/uL Lymphocytes # (Manual) (1.2-3.4) K/uL Total Abs Lymphocytes (1.2-3.4) K/uL Monocytes # (Manual) (0.11-0.59) K/uL Eosinophils # (Manual) (0-0.50) K/uL Basophils # (Manual) (0-0.2) K/uL Metamyelocytes # (Man) (0-0) K/uL Myelocytes # (Manual) (0-0) K/uL Platelet Estimate (Normal) Polychromasia Hypochromasia Tear Drop Cells Peripher Smr Path Cons Haptoglobin PT 14.9 H (9.0-12.0) Seconds INR 1.4 H (0.9-1.1) APTT (21.0-31.0) Seconds PTT Ratio Fibrinogen (184-400) mg/dl VBG pH (7.36-7.41) VBG pCO2 (38-50) mmHg VBG pO2 mmHg VBG HCO3 mmol/L VBG O2 Saturation % VBG Base Excess mEq/L Sodium (136-145) mmol/L Potassium (3.5-5.1) mmol/L Chloride (98-107) mmol/L Carbon Dioxide (21-32) mmol/L Anion Gap (3-11) BUN (6-23) mg/dl Creatinine (0.6-1.4) mg/dl Est Cr Clr Drug Dosing Est GFR ( Amer) ml/min Est GFR (Non-Af Amer) ml/min BUN/Creatinine Ratio (10-20) Glucose (70-99(Fasting)) mg/dl Osmolality (280-300) mOsm/kg Lactate 3.1 H* (0.4-2.0) mmol/L Calcium (8.6-10.3) mg/dl Phosphorus (2.5-4.9) mg/dl Magnesium (1.7-2.4) mg/dl Ferritin (8-388) ng/ml Total Bilirubin (0.2-1.0) mg/dl Direct Bilirubin (0-0.2) mg/dl AST (13-39) U/L ALT (7-52) U/L Alkaline Phosphatase (34-104) U/L Ammonia (18-72) umol/L Lactate Dehydrogenase (86-244) U/L Total Creatine Kinase (30-223) U/L Troponin I High Sens (0-20) pg/ml Total Protein (6.0-8.3) gm/dl Albumin (3.4-5.0) gm/dl Triglycerides (0-150) mg/dl Cholesterol LDL Cholesterol, Calc VLDL Cholesterol, Calc (0-30) mg/dl HDL Cholesterol mg/dl Cholesterol/HDL Ratio Lipase (11-82) U/L Procalcitonin (0-0.5) ng/ml Urine Color Urine Appearance (Clear) Urine pH (4.5-7.5) Ur Specific Corona (1.000-1.030) Urine Protein (Negative) Urine Glucose (UA) (Negative) Urine Ketones (Negative) Urine Blood (Negative) Urine Nitrite (Negative) Urine Bilirubin (Negative) Urine Urobilinogen (Negative) Ur Leukocyte Esterase (Negative) Urine WBC (Auto) (0-5) /hpf Urine RBC (Auto) (0-4) /hpf U Hyaline Cast (Auto) (0-5) /lpf U Epithel Cells (Auto) (0-5) /lpf Urine Bacteria (Auto) (Negative) Acetaminophen (10-30) ug/ml Anaplasma Smear Babesia Smear Babesia microti DNA PCR Lyme Disease IgG Ab (Negative) Lyme Disease IgM Ab (Negative) Hepatitis A IgM Ab Hep Bs Antigen Hep Bs Ag Confirmation Hep B Core IgM Ab Hepatitis C Ab (EIA) Hep C Ab Signal/Cutoff SARS-CoV-2, RNA, NAAT (NEGATIVE) Blood Type Antibody Screen 09/22/22 09/22/22 09/21/22 Range/Units 06:03 03:49 23:19 WBC (4.8-10.8) K/ul RBC (4.70-6.10) M/uL Hgb (14.0-18.0) g/dl Hct (42.0-52.0) % MCV (80.0-100.0) fL MCH (25.0-34.0) pg MCHC (32.0-36.0) g/dL RDW Std Deviation (36.4-46.3) fL RDW Coeff of Dwain (11.5-14.5) % Plt Count (130-400) K/uL MPV (9.4-12.4) fL Absolute Nucleated RBC (0-0.12) K/uL Nucleated RBC % (auto) % Neutrophils % (Manual) % Lymphocytes % (Manual) % Monocytes % (Manual) % Eosinophils % (Manual) % Basophils % (Manual) % Metamyelocytes % (Man) % Myelocytes % (Man) % Neutrophils # (Manual) (1.40-6.50) K/uL Total Absolute Neuts (1.4-6.5) K/uL Lymphocytes # (Manual) (1.2-3.4) K/uL Total Abs Lymphocytes (1.2-3.4) K/uL Monocytes # (Manual) (0.11-0.59) K/uL Eosinophils # (Manual) (0-0.50) K/uL Basophils # (Manual) (0-0.2) K/uL Metamyelocytes # (Man) (0-0) K/uL Myelocytes # (Manual) (0-0) K/uL Platelet Estimate (Normal) Polychromasia Hypochromasia Tear Drop Cells Peripher Smr Path Cons Haptoglobin PT (9.0-12.0) Seconds INR (0.9-1.1) APTT (21.0-31.0) Seconds PTT Ratio Fibrinogen 316 (184-400) mg/dl VBG pH (7.36-7.41) VBG pCO2 (38-50) mmHg VBG pO2 mmHg VBG HCO3 mmol/L VBG O2 Saturation % VBG Base Excess mEq/L Sodium 130 L (136-145) mmol/L Potassium 4.6 (3.5-5.1) mmol/L Chloride 97 L (98-107) mmol/L Carbon Dioxide 22 (21-32) mmol/L Anion Gap 11 (3-11) BUN 27 H (6-23) mg/dl Creatinine 1.59 H D (0.6-1.4) mg/dl Est Cr Clr Drug Dosing 41.8 Est GFR ( Amer) 50.2 ml/min Est GFR (Non-Af Amer) 43.3 ml/min BUN/Creatinine Ratio 17.0 (10-20) Glucose 79 (70-99(Fasting)) mg/dl Osmolality (280-300) mOsm/kg Lactate (0.4-2.0) mmol/L Calcium 7.5 L (8.6-10.3) mg/dl Phosphorus (2.5-4.9) mg/dl Magnesium (1.7-2.4) mg/dl Ferritin (8-388) ng/ml Total Bilirubin 9.5 H (0.2-1.0) mg/dl Direct Bilirubin 5.7 H (0-0.2) mg/dl AST 154 H (13-39) U/L ALT 52 (7-52) U/L Alkaline Phosphatase 573 H (34-104) U/L Ammonia (18-72) umol/L Lactate Dehydrogenase (86-244) U/L Total Creatine Kinase 213 (30-223) U/L Troponin I High Sens (0-20) pg/ml Total Protein 4.4 L (6.0-8.3) gm/dl Albumin 2.4 L (3.4-5.0) gm/dl Triglycerides 226 H (0-150) mg/dl Cholesterol TNP LDL Cholesterol, Calc TNP VLDL Cholesterol, Calc 45 H (0-30) mg/dl HDL Cholesterol 5 mg/dl Cholesterol/HDL Ratio TNP Lipase (11-82) U/L Procalcitonin (0-0.5) ng/ml Urine Color Dark Yellow Urine Appearance Clear (Clear) Urine pH 5.0 (4.5-7.5) Ur Specific Corona 1.030 (1.000-1.030) Urine Protein Trace H (Negative) Urine Glucose (UA) Negative (Negative) Urine Ketones Negative (Negative) Urine Blood Negative (Negative) Urine Nitrite Positive A (Negative) Urine Bilirubin 2+ H (Negative) Urine Urobilinogen Negative (Negative) Ur Leukocyte Esterase Trace H (Negative) Urine WBC (Auto) 1-5 (0-5) /hpf Urine RBC (Auto) 0-4 (0-4) /hpf U Hyaline Cast (Auto) 5-10 H (0-5) /lpf U Epithel Cells (Auto) 0-5 (0-5) /lpf Urine Bacteria (Auto) Negative (Negative) Acetaminophen (10-30) ug/ml Anaplasma Smear Babesia Smear Babesia microti DNA PCR Lyme Disease IgG Ab (Negative) Lyme Disease IgM Ab (Negative) Hepatitis A IgM Ab Hep Bs Antigen Hep Bs Ag Confirmation Hep B Core IgM Ab Hepatitis C Ab (EIA) Hep C Ab Signal/Cutoff SARS-CoV-2, RNA, NAAT (NEGATIVE) Blood Type Antibody Screen 09/21/22 09/21/22 09/21/22 Range/Units 23:19 23:19 23:19 WBC (4.8-10.8) K/ul RBC (4.70-6.10) M/uL Hgb (14.0-18.0) g/dl Hct (42.0-52.0) % MCV (80.0-100.0) fL MCH (25.0-34.0) pg MCHC (32.0-36.0) g/dL RDW Std Deviation (36.4-46.3) fL RDW Coeff of Dwain (11.5-14.5) % Plt Count (130-400) K/uL MPV (9.4-12.4) fL Absolute Nucleated RBC (0-0.12) K/uL Nucleated RBC % (auto) % Neutrophils % (Manual) % Lymphocytes % (Manual) % Monocytes % (Manual) % Eosinophils % (Manual) % Basophils % (Manual) % Metamyelocytes % (Man) % Myelocytes % (Man) % Neutrophils # (Manual) (1.40-6.50) K/uL Total Absolute Neuts (1.4-6.5) K/uL Lymphocytes # (Manual) (1.2-3.4) K/uL Total Abs Lymphocytes (1.2-3.4) K/uL Monocytes # (Manual) (0.11-0.59) K/uL Eosinophils # (Manual) (0-0.50) K/uL Basophils # (Manual) (0-0.2) K/uL Metamyelocytes # (Man) (0-0) K/uL Myelocytes # (Manual) (0-0) K/uL Platelet Estimate (Normal) Polychromasia Hypochromasia Tear Drop Cells Peripher Smr Path Cons Haptoglobin PT (9.0-12.0) Seconds INR (0.9-1.1) APTT (21.0-31.0) Seconds PTT Ratio Fibrinogen (184-400) mg/dl VBG pH (7.36-7.41) VBG pCO2 (38-50) mmHg VBG pO2 mmHg VBG HCO3 mmol/L VBG O2 Saturation % VBG Base Excess mEq/L Sodium (136-145) mmol/L Potassium (3.5-5.1) mmol/L Chloride (98-107) mmol/L Carbon Dioxide (21-32) mmol/L Anion Gap (3-11) BUN (6-23) mg/dl Creatinine (0.6-1.4) mg/dl Est Cr Clr Drug Dosing Est GFR ( Amer) ml/min Est GFR (Non-Af Amer) ml/min BUN/Creatinine Ratio (10-20) Glucose (70-99(Fasting)) mg/dl Osmolality (280-300) mOsm/kg Lactate (0.4-2.0) mmol/L Calcium (8.6-10.3) mg/dl Phosphorus (2.5-4.9) mg/dl Magnesium (1.7-2.4) mg/dl Ferritin (8-388) ng/ml Total Bilirubin (0.2-1.0) mg/dl Direct Bilirubin (0-0.2) mg/dl AST (13-39) U/L ALT (7-52) U/L Alkaline Phosphatase (34-104) U/L Ammonia (18-72) umol/L Lactate Dehydrogenase (86-244) U/L Total Creatine Kinase (30-223) U/L Troponin I High Sens (0-20) pg/ml Total Protein (6.0-8.3) gm/dl Albumin (3.4-5.0) gm/dl Triglycerides (0-150) mg/dl Cholesterol LDL Cholesterol, Calc VLDL Cholesterol, Calc (0-30) mg/dl HDL Cholesterol mg/dl Cholesterol/HDL Ratio Lipase (11-82) U/L Procalcitonin (0-0.5) ng/ml Urine Color Urine Appearance (Clear) Urine pH (4.5-7.5) Ur Specific Corona (1.000-1.030) Urine Protein (Negative) Urine Glucose (UA) (Negative) Urine Ketones (Negative) Urine Blood (Negative) Urine Nitrite (Negative) Urine Bilirubin (Negative) Urine Urobilinogen (Negative) Ur Leukocyte Esterase (Negative) Urine WBC (Auto) (0-5) /hpf Urine RBC (Auto) (0-4) /hpf U Hyaline Cast (Auto) (0-5) /lpf U Epithel Cells (Auto) (0-5) /lpf Urine Bacteria (Auto) (Negative) Acetaminophen < 3 L (10-30) ug/ml Anaplasma Smear Babesia Smear Babesia microti DNA PCR Pending Lyme Disease IgG Ab Negative (Negative) Lyme Disease IgM Ab Negative (Negative) Hepatitis A IgM Ab Hep Bs Antigen Hep Bs Ag Confirmation Hep B Core IgM Ab Hepatitis C Ab (EIA) Hep C Ab Signal/Cutoff SARS-CoV-2, RNA, NAAT (NEGATIVE) Blood Type Antibody Screen 09/21/22 09/21/22 09/21/22 Range/Units 23:19 23:19 23:19 WBC (4.8-10.8) K/ul RBC (4.70-6.10) M/uL Hgb (14.0-18.0) g/dl Hct (42.0-52.0) % MCV (80.0-100.0) fL MCH (25.0-34.0) pg MCHC (32.0-36.0) g/dL RDW Std Deviation (36.4-46.3) fL RDW Coeff of Dwain (11.5-14.5) % Plt Count (130-400) K/uL MPV (9.4-12.4) fL Absolute Nucleated RBC (0-0.12) K/uL Nucleated RBC % (auto) % Neutrophils % (Manual) % Lymphocytes % (Manual) % Monocytes % (Manual) % Eosinophils % (Manual) % Basophils % (Manual) % Metamyelocytes % (Man) % Myelocytes % (Man) % Neutrophils # (Manual) (1.40-6.50) K/uL Total Absolute Neuts (1.4-6.5) K/uL Lymphocytes # (Manual) (1.2-3.4) K/uL Total Abs Lymphocytes (1.2-3.4) K/uL Monocytes # (Manual) (0.11-0.59) K/uL Eosinophils # (Manual) (0-0.50) K/uL Basophils # (Manual) (0-0.2) K/uL Metamyelocytes # (Man) (0-0) K/uL Myelocytes # (Manual) (0-0) K/uL Platelet Estimate (Normal) Polychromasia Hypochromasia Tear Drop Cells Peripher Smr Path Cons Haptoglobin Pending PT (9.0-12.0) Seconds INR (0.9-1.1) APTT (21.0-31.0) Seconds PTT Ratio Fibrinogen (184-400) mg/dl VBG pH (7.36-7.41) VBG pCO2 (38-50) mmHg VBG pO2 mmHg VBG HCO3 mmol/L VBG O2 Saturation % VBG Base Excess mEq/L Sodium (136-145) mmol/L Potassium (3.5-5.1) mmol/L Chloride (98-107) mmol/L Carbon Dioxide (21-32) mmol/L Anion Gap (3-11) BUN (6-23) mg/dl Creatinine (0.6-1.4) mg/dl Est Cr Clr Drug Dosing Est GFR ( Amer) ml/min Est GFR (Non-Af Amer) ml/min BUN/Creatinine Ratio (10-20) Glucose (70-99(Fasting)) mg/dl Osmolality (280-300) mOsm/kg Lactate (0.4-2.0) mmol/L Calcium (8.6-10.3) mg/dl Phosphorus 2.4 L (2.5-4.9) mg/dl Magnesium (1.7-2.4) mg/dl Ferritin > 7500.0 H (8-388) ng/ml Total Bilirubin (0.2-1.0) mg/dl Direct Bilirubin (0-0.2) mg/dl AST (13-39) U/L ALT (7-52) U/L Alkaline Phosphatase (34-104) U/L Ammonia (18-72) umol/L Lactate Dehydrogenase 2050 H (86-244) U/L Total Creatine Kinase (30-223) U/L Troponin I High Sens (0-20) pg/ml Total Protein (6.0-8.3) gm/dl Albumin (3.4-5.0) gm/dl Triglycerides (0-150) mg/dl Cholesterol LDL Cholesterol, Calc VLDL Cholesterol, Calc (0-30) mg/dl HDL Cholesterol mg/dl Cholesterol/HDL Ratio Lipase 21 (11-82) U/L Procalcitonin (0-0.5) ng/ml Urine Color Urine Appearance (Clear) Urine pH (4.5-7.5) Ur Specific Corona (1.000-1.030) Urine Protein (Negative) Urine Glucose (UA) (Negative) Urine Ketones (Negative) Urine Blood (Negative) Urine Nitrite (Negative) Urine Bilirubin (Negative) Urine Urobilinogen (Negative) Ur Leukocyte Esterase (Negative) Urine WBC (Auto) (0-5) /hpf Urine RBC (Auto) (0-4) /hpf U Hyaline Cast (Auto) (0-5) /lpf U Epithel Cells (Auto) (0-5) /lpf Urine Bacteria (Auto) (Negative) Acetaminophen (10-30) ug/ml Anaplasma Smear Babesia Smear Babesia microti DNA PCR Lyme Disease IgG Ab (Negative) Lyme Disease IgM Ab (Negative) Hepatitis A IgM Ab Pending Hep Bs Antigen Pending Hep Bs Ag Confirmation Pending Hep B Core IgM Ab Pending Hepatitis C Ab (EIA) Pending Hep C Ab Signal/Cutoff Pending SARS-CoV-2, RNA, NAAT (NEGATIVE) Blood Type Antibody Screen 09/21/22 09/21/22 09/21/22 Range/Units 23:19 23:19 20:35 WBC (4.8-10.8) K/ul RBC (4.70-6.10) M/uL Hgb (14.0-18.0) g/dl Hct (42.0-52.0) % MCV (80.0-100.0) fL MCH (25.0-34.0) pg MCHC (32.0-36.0) g/dL RDW Std Deviation (36.4-46.3) fL RDW Coeff of Dwain (11.5-14.5) % Plt Count (130-400) K/uL MPV (9.4-12.4) fL Absolute Nucleated RBC (0-0.12) K/uL Nucleated RBC % (auto) % Neutrophils % (Manual) % Lymphocytes % (Manual) % Monocytes % (Manual) % Eosinophils % (Manual) % Basophils % (Manual) % Metamyelocytes % (Man) % Myelocytes % (Man) % Neutrophils # (Manual) (1.40-6.50) K/uL Total Absolute Neuts (1.4-6.5) K/uL Lymphocytes # (Manual) (1.2-3.4) K/uL Total Abs Lymphocytes (1.2-3.4) K/uL Monocytes # (Manual) (0.11-0.59) K/uL Eosinophils # (Manual) (0-0.50) K/uL Basophils # (Manual) (0-0.2) K/uL Metamyelocytes # (Man) (0-0) K/uL Myelocytes # (Manual) (0-0) K/uL Platelet Estimate (Normal) Polychromasia Hypochromasia Tear Drop Cells Peripher Smr Path Cons Haptoglobin PT (9.0-12.0) Seconds INR (0.9-1.1) APTT (21.0-31.0) Seconds PTT Ratio Fibrinogen (184-400) mg/dl VBG pH (7.36-7.41) VBG pCO2 (38-50) mmHg VBG pO2 mmHg VBG HCO3 mmol/L VBG O2 Saturation % VBG Base Excess mEq/L Sodium (136-145) mmol/L Potassium (3.5-5.1) mmol/L Chloride (98-107) mmol/L Carbon Dioxide (21-32) mmol/L Anion Gap (3-11) BUN (6-23) mg/dl Creatinine (0.6-1.4) mg/dl Est Cr Clr Drug Dosing Est GFR ( Amer) ml/min Est GFR (Non-Af Amer) ml/min BUN/Creatinine Ratio (10-20) Glucose (70-99(Fasting)) mg/dl Osmolality (280-300) mOsm/kg Lactate 4.4 H* (0.4-2.0) mmol/L Calcium (8.6-10.3) mg/dl Phosphorus (2.5-4.9) mg/dl Magnesium (1.7-2.4) mg/dl Ferritin (8-388) ng/ml Total Bilirubin (0.2-1.0) mg/dl Direct Bilirubin (0-0.2) mg/dl AST (13-39) U/L ALT (7-52) U/L Alkaline Phosphatase (34-104) U/L Ammonia (18-72) umol/L Lactate Dehydrogenase (86-244) U/L Total Creatine Kinase (30-223) U/L Troponin I High Sens (0-20) pg/ml Total Protein (6.0-8.3) gm/dl Albumin (3.4-5.0) gm/dl Triglycerides (0-150) mg/dl Cholesterol LDL Cholesterol, Calc VLDL Cholesterol, Calc (0-30) mg/dl HDL Cholesterol mg/dl Cholesterol/HDL Ratio Lipase (11-82) U/L Procalcitonin (0-0.5) ng/ml Urine Color Urine Appearance (Clear) Urine pH (4.5-7.5) Ur Specific [place] (1.000-1.030) Urine Protein (Negative) Urine Glucose (UA) (Negative) Urine Ketones (Negative) Urine Blood (Negative) Urine Nitrite (Negative) Urine Bilirubin (Negative) Urine Urobilinogen (Negative) Ur Leukocyte Esterase (Negative) Urine WBC (Auto) (0-5) /hpf Urine RBC (Auto) (0-4) /hpf U Hyaline Cast (Auto) (0-5) /lpf U Epithel Cells (Auto) (0-5) /lpf Urine Bacteria (Auto) (Negative) Acetaminophen (10-30) ug/ml Anaplasma Smear See Comment Babesia Smear See Comment Babesia microti DNA PCR Lyme Disease IgG Ab (Negative) Lyme Disease IgM Ab (Negative) Hepatitis A IgM Ab Hep Bs Antigen Hep Bs Ag Confirmation Hep B Core IgM Ab Hepatitis C Ab (EIA) Hep C Ab Signal/Cutoff SARS-CoV-2, RNA, NAAT NEGATIVE (NEGATIVE) Blood Type Antibody Screen 09/21/22 09/21/22 09/21/22 Range/Units 20:30 20:30 20:30 WBC (4.8-10.8) K/ul RBC (4.70-6.10) M/uL Hgb (14.0-18.0) g/dl Hct (42.0-52.0) % MCV (80.0-100.0) fL MCH (25.0-34.0) pg MCHC (32.0-36.0) g/dL RDW Std Deviation (36.4-46.3) fL RDW Coeff of Dwain (11.5-14.5) % Plt Count (130-400) K/uL MPV (9.4-12.4) fL Absolute Nucleated RBC (0-0.12) K/uL Nucleated RBC % (auto) % Neutrophils % (Manual) % Lymphocytes % (Manual) % Monocytes % (Manual) % Eosinophils % (Manual) % Basophils % (Manual) % Metamyelocytes % (Man) % Myelocytes % (Man) % Neutrophils # (Manual) (1.40-6.50) K/uL Total Absolute Neuts (1.4-6.5) K/uL Lymphocytes # (Manual) (1.2-3.4) K/uL Total Abs Lymphocytes (1.2-3.4) K/uL Monocytes # (Manual) (0.11-0.59) K/uL Eosinophils # (Manual) (0-0.50) K/uL Basophils # (Manual) (0-0.2) K/uL Metamyelocytes # (Man) (0-0) K/uL Myelocytes # (Manual) (0-0) K/uL Platelet Estimate (Normal) Polychromasia Hypochromasia Tear Drop Cells Peripher Smr Path Cons Haptoglobin PT (9.0-12.0) Seconds INR (0.9-1.1) APTT (21.0-31.0) Seconds PTT Ratio Fibrinogen (184-400) mg/dl VBG pH (7.36-7.41) VBG pCO2 (38-50) mmHg VBG pO2 mmHg VBG HCO3 mmol/L VBG O2 Saturation % VBG Base Excess mEq/L Sodium (136-145) mmol/L Potassium (3.5-5.1) mmol/L Chloride (98-107) mmol/L Carbon Dioxide (21-32) mmol/L Anion Gap (3-11) BUN (6-23) mg/dl Creatinine (0.6-1.4) mg/dl Est Cr Clr Drug Dosing Est GFR ( Amer) ml/min Est GFR (Non-Af Amer) ml/min BUN/Creatinine Ratio (10-20) Glucose (70-99(Fasting)) mg/dl Osmolality 282 (280-300) mOsm/kg Lactate (0.4-2.0) mmol/L Calcium (8.6-10.3) mg/dl Phosphorus (2.5-4.9) mg/dl Magnesium (1.7-2.4) mg/dl Ferritin (8-388) ng/ml Total Bilirubin (0.2-1.0) mg/dl Direct Bilirubin (0-0.2) mg/dl AST (13-39) U/L ALT (7-52) U/L Alkaline Phosphatase (34-104) U/L Ammonia 54.0 (18-72) umol/L Lactate Dehydrogenase (86-244) U/L Total Creatine Kinase (30-223) U/L Troponin I High Sens (0-20) pg/ml Total Protein (6.0-8.3) gm/dl Albumin (3.4-5.0) gm/dl Triglycerides (0-150) mg/dl Cholesterol LDL Cholesterol, Calc VLDL Cholesterol, Calc (0-30) mg/dl HDL Cholesterol mg/dl Cholesterol/HDL Ratio Lipase (11-82) U/L Procalcitonin (0-0.5) ng/ml Urine Color Urine Appearance (Clear) Urine pH (4.5-7.5) Ur Specific Corona (1.000-1.030) Urine Protein (Negative) Urine Glucose (UA) (Negative) Urine Ketones (Negative) Urine Blood (Negative) Urine Nitrite (Negative) Urine Bilirubin (Negative) Urine Urobilinogen (Negative) Ur Leukocyte Esterase (Negative) Urine WBC (Auto) (0-5) /hpf Urine RBC (Auto) (0-4) /hpf U Hyaline Cast (Auto) (0-5) /lpf U Epithel Cells (Auto) (0-5) /lpf Urine Bacteria (Auto) (Negative) Acetaminophen (10-30) ug/ml Anaplasma Smear Babesia Smear Babesia microti DNA PCR Lyme Disease IgG Ab (Negative) Lyme Disease IgM Ab (Negative) Hepatitis A IgM Ab Hep Bs Antigen Hep Bs Ag Confirmation Hep B Core IgM Ab Hepatitis C Ab (EIA) Hep C Ab Signal/Cutoff SARS-CoV-2, RNA, NAAT (NEGATIVE) Blood Type A Positive Antibody Screen NEGATIVE 09/21/22 09/21/22 09/21/22 Range/Units 20:30 20:30 20:30 WBC (4.8-10.8) K/ul RBC (4.70-6.10) M/uL Hgb (14.0-18.0) g/dl Hct (42.0-52.0) % MCV (80.0-100.0) fL MCH (25.0-34.0) pg MCHC (32.0-36.0) g/dL RDW Std Deviation (36.4-46.3) fL RDW Coeff of Dwain (11.5-14.5) % Plt Count (130-400) K/uL MPV (9.4-12.4) fL Absolute Nucleated RBC (0-0.12) K/uL Nucleated RBC % (auto) % Neutrophils % (Manual) % Lymphocytes % (Manual) % Monocytes % (Manual) % Eosinophils % (Manual) % Basophils % (Manual) % Metamyelocytes % (Man) % Myelocytes % (Man) % Neutrophils # (Manual) (1.40-6.50) K/uL Total Absolute Neuts (1.4-6.5) K/uL Lymphocytes # (Manual) (1.2-3.4) K/uL Total Abs Lymphocytes (1.2-3.4) K/uL Monocytes # (Manual) (0.11-0.59) K/uL Eosinophils # (Manual) (0-0.50) K/uL Basophils # (Manual) (0-0.2) K/uL Metamyelocytes # (Man) (0-0) K/uL Myelocytes # (Manual) (0-0) K/uL Platelet Estimate (Normal) Polychromasia Hypochromasia Tear Drop Cells Peripher Smr Path Cons Haptoglobin PT (9.0-12.0) Seconds INR (0.9-1.1) APTT (21.0-31.0) Seconds PTT Ratio Fibrinogen (184-400) mg/dl VBG pH 7.39 (7.36-7.41) VBG pCO2 35 L (38-50) mmHg VBG pO2 26 mmHg VBG HCO3 21 mmol/L VBG O2 Saturation < 60.0 % VBG Base Excess -3.1 mEq/L Sodium (136-145) mmol/L Potassium (3.5-5.1) mmol/L Chloride (98-107) mmol/L Carbon Dioxide (21-32) mmol/L Anion Gap (3-11) BUN (6-23) mg/dl Creatinine (0.6-1.4) mg/dl Est Cr Clr Drug Dosing Est GFR ( Amer) ml/min Est GFR (Non-Af Amer) ml/min BUN/Creatinine Ratio (10-20) Glucose (70-99(Fasting)) mg/dl Osmolality (280-300) mOsm/kg Lactate 7.3 H* (0.4-2.0) mmol/L Calcium (8.6-10.3) mg/dl Phosphorus (2.5-4.9) mg/dl Magnesium (1.7-2.4) mg/dl Ferritin (8-388) ng/ml Total Bilirubin (0.2-1.0) mg/dl Direct Bilirubin (0-0.2) mg/dl AST (13-39) U/L ALT (7-52) U/L Alkaline Phosphatase (34-104) U/L Ammonia (18-72) umol/L Lactate Dehydrogenase (86-244) U/L Total Creatine Kinase (30-223) U/L Troponin I High Sens (0-20) pg/ml Total Protein (6.0-8.3) gm/dl Albumin (3.4-5.0) gm/dl Triglycerides (0-150) mg/dl Cholesterol LDL Cholesterol, Calc VLDL Cholesterol, Calc (0-30) mg/dl HDL Cholesterol mg/dl Cholesterol/HDL Ratio Lipase (11-82) U/L Procalcitonin 2.72 H (0-0.5) ng/ml Urine Color Urine Appearance (Clear) Urine pH (4.5-7.5) Ur Specific Corona (1.000-1.030) Urine Protein (Negative) Urine Glucose (UA) (Negative) Urine Ketones (Negative) Urine Blood (Negative) Urine Nitrite (Negative) Urine Bilirubin (Negative) Urine Urobilinogen (Negative) Ur Leukocyte Esterase (Negative) Urine WBC (Auto) (0-5) /hpf Urine RBC (Auto) (0-4) /hpf U Hyaline Cast (Auto) (0-5) /lpf U Epithel Cells (Auto) (0-5) /lpf Urine Bacteria (Auto) (Negative) Acetaminophen (10-30) ug/ml Anaplasma Smear Babesia Smear Babesia microti DNA PCR Lyme Disease IgG Ab (Negative) Lyme Disease IgM Ab (Negative) Hepatitis A IgM Ab Hep Bs Antigen Hep Bs Ag Confirmation Hep B Core IgM Ab Hepatitis C Ab (EIA) Hep C Ab Signal/Cutoff SARS-CoV-2, RNA, NAAT (NEGATIVE) Blood Type Antibody Screen 09/21/22 09/21/22 09/21/22 Range/Units 20:30 20:30 20:30 WBC 7.83 (4.8-10.8) K/ul RBC 3.40 L (4.70-6.10) M/uL Hgb 9.6 L (14.0-18.0) g/dl Hct 29.2 L (42.0-52.0) % MCV 85.9 (80.0-100.0) fL MCH 28.2 (25.0-34.0) pg MCHC 32.9 (32.0-36.0) g/dL RDW Std Deviation 54.4 H (36.4-46.3) fL RDW Coeff of Dwain 17.7 H (11.5-14.5) % Plt Count 29 L* (130-400) K/uL MPV 9.5 (9.4-12.4) fL Absolute Nucleated RBC 0.42 H (0-0.12) K/uL Nucleated RBC % (auto) 5.4 % Neutrophils % (Manual) 64 % Lymphocytes % (Manual) 11 % Monocytes % (Manual) 4 % Eosinophils % (Manual) 3 % Basophils % (Manual) 4 % Metamyelocytes % (Man) 8 % Myelocytes % (Man) 6 % Neutrophils # (Manual) 5.01 (1.40-6.50) K/uL Total Absolute Neuts 5.01 (1.4-6.5) K/uL Lymphocytes # (Manual) 0.86 L (1.2-3.4) K/uL Total Abs Lymphocytes 0.86 L (1.2-3.4) K/uL Monocytes # (Manual) 0.31 (0.11-0.59) K/uL Eosinophils # (Manual) 0.23 (0-0.50) K/uL Basophils # (Manual) 0.31 H (0-0.2) K/uL Metamyelocytes # (Man) 0.63 H (0-0) K/uL Myelocytes # (Manual) 0.47 H (0-0) K/uL Platelet Estimate Decreased L (Normal) Polychromasia 1+ Hypochromasia Present Tear Drop Cells 2+ Peripher Smr Path Cons Haptoglobin PT 14.2 H (9.0-12.0) Seconds INR 1.3 H (0.9-1.1) APTT 33.9 H (21.0-31.0) Seconds PTT Ratio 1.2 Fibrinogen (184-400) mg/dl VBG pH (7.36-7.41) VBG pCO2 (38-50) mmHg VBG pO2 mmHg VBG HCO3 mmol/L VBG O2 Saturation % VBG Base Excess mEq/L Sodium 129 L (136-145) mmol/L Potassium 5.1 (3.5-5.1) mmol/L Chloride 89 L (98-107) mmol/L Carbon Dioxide 22 (21-32) mmol/L Anion Gap 18 H (3-11) BUN 31 H (6-23) mg/dl Creatinine 1.90 H (0.6-1.4) mg/dl Est Cr Clr Drug Dosing Not Reportable Est GFR ( Amer) 40.5 ml/min Est GFR (Non-Af Amer) 34.9 ml/min BUN/Creatinine Ratio 16.3 (10-20) Glucose 99 (70-99(Fasting)) mg/dl Osmolality (280-300) mOsm/kg Lactate (0.4-2.0) mmol/L Calcium 8.5 L (8.6-10.3) mg/dl Phosphorus (2.5-4.9) mg/dl Magnesium 2.0 (1.7-2.4) mg/dl Ferritin (8-388) ng/ml Total Bilirubin 10.8 H (0.2-1.0) mg/dl Direct Bilirubin 5.7 H (0-0.2) mg/dl AST 195 H (13-39) U/L ALT 64 H (7-52) U/L Alkaline Phosphatase 749 H (34-104) U/L Ammonia (18-72) umol/L Lactate Dehydrogenase (86-244) U/L Total Creatine Kinase (30-223) U/L Troponin I High Sens 16.6 (0-20) pg/ml Total Protein 5.3 L (6.0-8.3) gm/dl Albumin 2.8 L (3.4-5.0) gm/dl Triglycerides (0-150) mg/dl Cholesterol LDL Cholesterol, Calc VLDL Cholesterol, Calc (0-30) mg/dl HDL Cholesterol mg/dl Cholesterol/HDL Ratio Lipase (11-82) U/L Procalcitonin (0-0.5) ng/ml Urine Color Urine Appearance (Clear) Urine pH (4.5-7.5) Ur Specific Corona (1.000-1.030) Urine Protein (Negative) Urine Glucose (UA) (Negative) Urine Ketones (Negative) Urine Blood (Negative) Urine Nitrite (Negative) Urine Bilirubin (Negative) Urine Urobilinogen (Negative) Ur Leukocyte Esterase (Negative) Urine WBC (Auto) (0-5) /hpf Urine RBC (Auto) (0-4) /hpf U Hyaline Cast (Auto) (0-5) /lpf U Epithel Cells (Auto) (0-5) /lpf Urine Bacteria (Auto) (Negative) Acetaminophen (10-30) ug/ml Anaplasma Smear Babesia Smear Babesia microti DNA PCR Lyme Disease IgG Ab (Negative) Lyme Disease IgM Ab (Negative) Hepatitis A IgM Ab Hep Bs Antigen Hep Bs Ag Confirmation Hep B Core IgM Ab Hepatitis C Ab (EIA) Hep C Ab Signal/Cutoff SARS-CoV-2, RNA, NAAT (NEGATIVE) Blood Type Antibody Screen Diagnostic Findings Chest X-Ray 09/21/22 20:17 XR chest 1V portable HISTORY: Sepsis COMPARISON: Chest 04/22/2022. FINDINGS: There are low lung volumes. The lungs are clear. No pleural effusions. No pneumothorax. The heart is normal in size. There are calcifications within the aortic knob. Diffuse osteoblastic metastatic disease again noted. IMPRESSION: 1. No acute process within the chest. 2. Diffuse osteoblastic metastatic disease again noted. ACT 112: Negative or not required by law. Electronically signed by: Corbin Brunson M.D. 09/22/2022 8:12 AM KUB X-Ray 09/21/22 20:23 KUB CLINICAL HISTORY: Constipation. FINDINGS: 2 AP supine abdominal radiographs are correlated with abdominal CT dated 04/19/2022. There is mild gaseous distention of the small bowel loops with no radiographic evidence of high-grade obstruction. No evidence of intraperitoneal free air is seen on these supine images. There are no abnormal abdominal calcifications. There is evidence of extensive/diffuse osteoblastic metastatic disease. Numerous surgical clips project over the pelvis. IMPRESSION: 1. There are gas-filled loops of small bowel with no radiographic evidence of high-grade obstruction. 2. Extensive/diffuse osteoblastic metastatic disease is again noted. Electronically signed by: Antelmo Watts M.D. 09/22/2022 8:28 AM Abdomen/Pelvis CT 09/21/22 22:37 Exam(s): CT ABDOMEN + PELVIS With Contrast IV Amt: 89 ml optiray 320 EXAM: CT Abdomen and Pelvis With Intravenous Contrast CLINICAL HISTORY: Reason for exam: jaundicce, metastatic prostate CA. TECHNIQUE: Axial computed tomography images of the abdomen and pelvis with intravenous contrast. Automated exposure control was utilized for the study. A dose lowering technique was utilized adhering to the principles of ALARA. CONTRAST: Patient received 89 ml optiray 320 of IV contrast COMPARISON: No relevant prior studies available. FINDINGS: Lung bases: Unremarkable. No mass. No consolidation. ABDOMEN: Liver: Unremarkable. No mass. Gallbladder and bile ducts: Unremarkable. No calcified stones. No ductal dilation. Pancreas: Unremarkable. No mass. No ductal dilation. Spleen: Unremarkable. No splenomegaly. Adrenals: Unremarkable. No mass. Kidneys and ureters: Unremarkable. No hydronephrosis or delayed nephrogram. Stomach and bowel: Unremarkable. No acute diverticulitis. No small bowel obstruction. No free intraperitoneal air. PELVIS: Appendix: No findings to suggest acute appendicitis. Bladder: Unremarkable. No mass. Reproductive: Prostatectomy. ABDOMEN and PELVIS: Intraperitoneal space: Abdominal ascites. No free air. Bones/joints: Diffuse osteosclerosis, consistent with diffuse osseous metastatic prostate cancer. No acute fracture. No dislocation. Soft tissues: Unremarkable. Vasculature: Diffuse, heterogeneous low attenuation throughout the liver, concerning for hepatic metastases (more likely) versus hepatic congestion (Budd-Chiari syndrome). Correlate for portal vein thrombosis. Consider hepatic ultrasound. Atherosclerotic changes of the aorta. No abdominal aortic aneurysm. Lymph nodes: Unremarkable. No enlarged lymph nodes. IMPRESSION: 1. Diffuse, heterogeneous low attenuation throughout the liver, concerning for hepatic metastases (more likely) versus hepatic congestion (Budd-Chiari syndrome). Correlate for portal vein thrombosis. Consider hepatic ultrasound. 2. Diffuse osteosclerosis, consistent with diffuse osseous metastatic prostate cancer. Electronically signed by: George Ramos MD 09/21/22 23:[address] 09/21/22 22:37 Exam(s): CT HEAD Without Contrast EXAM: CT Head Without Intravenous Contrast CLINICAL HISTORY: Reason for exam: AMS. TECHNIQUE: Axial computed tomography images of the head/brain without intravenous contrast. Automated exposure control was utilized for the study. A dose lowering technique was utilized adhering to the principles of ALARA. COMPARISON: No relevant prior studies available. FINDINGS: No acute intracranial hemorrhage. No midline shift or mass effect. The territorial thakkar-white matter differentiation is maintained throughout. Age-related cerebral volume loss. Periventricular and subcortical white matter hypoattenuation, consistent with chronic microangiopathy. The visualized orbits appear grossly unremarkable. The calvarium is intact. The visualized paranasal sinuses and mastoid air cells are grossly clear. IMPRESSION: No acute intracranial hemorrhage, midline shift, or mass effect. Electronically signed by: George Ramos MD 09/21/22 23:29 PM Portal Vein US 09/21/22 23:44 Exam(s): US LIVER EXAM: US Abdomen Limited CLINICAL HISTORY: Reason for exam: ?portal vein thrombosis?. TECHNIQUE: Real-time ultrasound of the abdomen with image documentation. COMPARISON: CT abdomen and pelvis, same day. FINDINGS/IMPRESSION: Severely heterogeneous hepatic echotexture, as noted on the concomitant abdominal CT scan. The portal vein is patent with hepatopedal flow (correct direction). Low index of suspicion for Budd-Chiari syndrome. Abdominal ascites. Electronically signed by: George Ramos MD 09/22/22 01:19 AM PG Care Time/CCT Total # of Minutes Spent Total Time Spent with Patient: Total time spent is greater than 50% in coordination of care (as documented) at patient's floor/unit and/or counseling patient: Coding Level of Care Code 57596 SUB INP/OBS CARE 3/50MIN Diagnoses Abnormal LFTs R79.89 Prostate cancer metastatic to bone C61; C79.51 Hypertension I10 Anemia D64.9 Anemia type: unspecified type RAYMUNDO (acute kidney injury) N17.9 Hyponatremia E87.1 (4) Anemia Anemia type: unspecified type Qualified Code(s): D64.9 - Anemia, unspecified
--- NOTE | 2022-09-22 08:14 | XRay Report ---
XR chest 1V portable HISTORY: Sepsis COMPARISON: Chest 04/22/2022. FINDINGS: There are low lung volumes. The lungs are clear. No pleural effusions. No pneumothorax. The heart is normal in size. There are calcifications within the aortic knob. Diffuse osteoblastic metas tatic disease again noted. IMPRESSION: 1. No acute process within the chest. 2. Diffuse osteoblastic metastatic disease again noted. ACT 112: Negative or not required by law. Electronically signed by: Corbin Brunson M.D. 09/22/2022 8:12 AM
--- NOTE | 2022-09-22 08:30 | XRay Report ---
KUB CLINICAL HISTORY: Constipation. FINDINGS: 2 AP supine abdominal radiographs are correlated with abdominal CT dated 04/19/2022. There is mild gaseous distention of the small bowel loops with no radiographic evidence of high-grade obstr uction. No evidence of intraperitoneal free air is seen on these supine images. There are no abnormal abdominal calcifications. There is evidence of extensive/diffuse osteoblastic metastatic disease. Nu merous surgical clips project over the pelvis. IMPRESSION: 1. There are gas-filled loops of small bowel with no radiographic evidence of high-grade obstruction. 2. Extensive/diffuse osteoblastic metastatic disease is again noted. Electronically signed by: Antelmo Watts M.D. 09/22/2022 8:28 AM
[2022-09-22] MEDS: PANTOprazole 40 MG TAB PO SCH (08:57)
[2022-09-22] MEDS: predniSONE 10 MG TABLET PO SCH (08:58)
--- NOTE | 2022-09-22 10:20 | Gastrointestinal Consultation ---
Date of Consultation September 22, 2022 Assessment & Plan (1) Abnormal LFTs: (2) Prostate cancer metastatic to bone: Plan Patient is a 72 y.o. male with elevated liver panel, jaundice, and imaging suggestive of hepatic mets which is the likely source of elevated liver enzymes. -Await oncology consultation. -Await viral serologies as ordered. -Continue supportive care. Thank you for allowing us to participate in the care of this patient. If you have any questions or concerns, please do not hesitate to contact us. Supervising Physician Co-Signing Physician Notes Agree with AMANDA Canales as above Abd: Soft, NT, ND, +BS Continue current therapy and supportive care History of Present Illness Reason for Consultation: Elevated liver panel Requesting Physician: Dr. Ha Attending Physician: Tra Barnett MD History of Present Illness Patient is a 72 y.o. male with metastatic prostate CA admitted with weakness and jaundice. 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 There is associated dark urine and lower extremity edema but no pruritus. Denies any abdominal pain. Abdominopelvic CT reviewed which demonstrated diffuse, heterogenous low attenuation consistent with hepatic metastases. Portal vein US reviewed. Liver panel as follows: TB 9.5, direct bili 5.7, AST 154, ALT 52, and ALP 573. Oncology has been consulted. No biliary ductal dilation on imaging. Allergies Allergy/AdvReac Type Severity Reaction Status Date / Time No Known Allergies Allergy Verified 09/15/22 09:38 Home Medications Medication Instructions Recorded Confirmed Type ondansetron HCl 8 mg tablet 8 mg PO Q8H PRN Nausea 06/06/19 09/21/22 History pantoprazole 40 mg tablet,delayed 40 mg PO DAILY 07/03/20 09/21/22 History release aspirin 81 mg capsule 81 mg PO DAILY 03/12/22 09/21/22 History oxycodone 10 mg tablet 10 mg PO Q4 PRN mod to severe pain 09/21/22 09/21/22 History prednisone 10 mg tablet 10 mg PO DAILY 09/21/22 09/21/22 History Patient History Medical History Hypertension Prostate cancer metastatic to bone Syncope Surgical History S/P prostatectomy Family History Other No pertinent family history Social History Smoking Status: Unknown if ever smoked Tobacco Type: Cigarettes Hx Alcohol Use: No Hx Substance Use: No Preferred Language: Lithuanian Communication Ability: Effective Visual Impairment: No Limitations Hearing Ability: Normal 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 Beliefs That Will Affect Care: None marital status: / Current Living Situation: Family Current Living Situation Comment: lives with grandson current occupational status: retired Other Information That Helps Us Care for You: No Feels Safe at Home: Yes Safety Concerns: Feels Safe At This Time Assistive Devices: Denture - Upper and Walker Review of Systems Constitutional: + fatigue and + weakness; no fever Respiratory: no cough and no dyspnea Cardiovascular: no chest pain and no palpitations Gastrointestinal: as per Subjective / HPI Genitourinary: + as per Subjective / HPI Musculoskeletal: as per Subjective / HPI Psychiatric: as per Subjective / HPI Physical Exam Constitutional: WD/WN, vitals as above Eyes: + scleral abnormality (bilateral icterus) and EOM intact bilaterally Neck: normal visual inspection Respiratory: normal respiratory effort, lungs clear to auscultation Cardiovascular: Rate/Rhythm: regular rate and regular rhythm Gastrointestinal (Abdomen): Inspection/Auscultation: + abdomen distended and normal bowel sounds Percussion/Palpation: abdomen soft; abdomen nontender Musculoskeletal: no cyanosis or clubbing, extremities motor strength 5/5 Skin: + jaundice Psychiatric: A+Ox3, euthymic affect Results & Data Vital Signs (Past 12 Hours) Vital Signs Temp Pulse Pulse Resp BP BP Pulse Ox 09/22/22 07:17 37.1 C 123 H 19 129/77 91 09/22/22 02:08 120 H 09/22/22 01:54 37.3 C 134 H 18 123/78 92 09/22/22 01:45 09/22/22 01:30 2 L 09/22/22 00:00 129 H 24 92 09/22/22 00:00 134/84 09/21/22 23:50 120 H 17 94 09/21/22 23:40 119 H 21 93 09/21/22 23:31 14 09/21/22 23:31 122/83 09/21/22 22:40 131 H 17 93 09/21/22 22:30 129 H 24 91 09/21/22 22:30 100/77 09/21/22 22:20 127 H 23 93 O2 Del Method O2 Flow Rate 09/22/22 07:17 Room Air 09/22/22 02:08 09/22/22 01:54 Room Air 09/22/22 01:45 Nasal Cannula 09/22/22 01:30 Nasal Cannula 09/22/22 00:00 09/22/22 00:00 09/21/22 23:50 09/21/22 23:40 Nasal Cannula 2 09/21/22 23:31 09/21/22 23:31 09/21/22 22:40 09/21/22 22:30 09/21/22 22:30 09/21/22 22:20 Laboratory Results Laboratory Results WBC 7.36 K/ul (4.8-10.8) 09/22/22 06:03 RBC 2.90 M/uL (4.70-6.10) L 09/22/22 06:03 Hgb 8.2 g/dl (14.0-18.0) L 09/22/22 06:03 Hct 24.1 % (42.0-52.0) L 09/22/22 06:03 MCV 83.1 fL (80.0-100.0) 09/22/22 06:03 MCH 28.3 pg (25.0-34.0) 09/22/22 06:03 MCHC 34.0 g/dL (32.0-36.0) 09/22/22 06:03 RDW Std Deviation 52.5 fL (36.4-46.3) H 09/22/22 06:03 RDW Coeff of Dwain 17.6 % (11.5-14.5) H 09/22/22 06:03 Plt Count 22 K/uL (130-400) L* 09/22/22 06:03 MPV 9.5 fL (9.4-12.4) 09/21/22 20:30 Absolute Nucleated RBC 0.25 K/uL (0-0.12) H 09/22/22 06:03 Nucleated RBC % (auto) 3.4 % 09/22/22 06:03 Neutrophils % (Manual) 64 % 09/21/22 20:30 Lymphocytes % (Manual) 11 % 09/21/22 20:30 Monocytes % (Manual) 4 % 09/21/22 20:30 Eosinophils % (Manual) 3 % 09/21/22 20:30 Basophils % (Manual) 4 % 09/21/22 20:30 Metamyelocytes % (Man) 8 % 09/21/22 20:30 Myelocytes % (Man) 6 % 09/21/22 20:30 Neutrophils # (Manual) 5.01 K/uL (1.40-6.50) 09/21/22 20:30 Total Absolute Neuts 5.01 K/uL (1.4-6.5) 09/21/22 20:30 Lymphocytes # (Manual) 0.86 K/uL (1.2-3.4) L 09/21/22 20:30 Total Abs Lymphocytes 0.86 K/uL (1.2-3.4) L 09/21/22 20:30 Monocytes # (Manual) 0.31 K/uL (0.11-0.59) 09/21/22 20:30 Eosinophils # (Manual) 0.23 K/uL (0-0.50) 09/21/22 20:30 Basophils # (Manual) 0.31 K/uL (0-0.2) H 09/21/22 20:30 Metamyelocytes # (Man) 0.63 K/uL (0-0) H 09/21/22 20:30 Myelocytes # (Manual) 0.47 K/uL (0-0) H 09/21/22 20:30 Platelet Estimate Decreased (Normal) L 09/21/22 20:30 Polychromasia 1+ 09/21/22 20:30 Hypochromasia Present 09/21/22 20:30 Tear Drop Cells 2+ 09/21/22 20:30 Peripher Smr Path Cons 09/21/22 23:19 PT 14.9 Seconds (9.0-12.0) H 09/22/22 06:03 INR 1.4 (0.9-1.1) H 09/22/22 06:03 APTT 33.9 Seconds (21.0-31.0) H 09/21/22 20:30 PTT Ratio 1.2 09/21/22 20:30 Fibrinogen 316 mg/dl (184-400) 09/21/22 23:19 VBG pH 7.39 (7.36-7.41) 09/21/22 20:30 VBG pCO2 35 mmHg (38-50) L 09/21/22 20:30 VBG pO2 26 mmHg 09/21/22 20:30 VBG HCO3 21 mmol/L 09/21/22 20:30 VBG O2 Saturation < 60.0 % 09/21/22 20: VBG Base Excess -3.1 mEq/L 09/21/22 20:30 Sodium 130 mmol/L (136-145) L 09/22/22 06:03 Potassium 4.6 mmol/L (3.5-5.1) 09/22/22 06:03 Chloride 97 mmol/L (98-107) L 09/22/22 06:03 Carbon Dioxide 22 mmol/L (21-32) 09/22/22 06:03 Anion Gap 11 (3-11) 09/22/22 06:03 BUN 27 mg/dl (6-23) H 09/22/22 06:03 Creatinine 1.59 mg/dl (0.6-1.4) H D 09/22/22 06:03 Est Cr Clr Drug Dosing 41.8 ml/min 09/22/22 06:03 Est GFR ( Amer) 50.2 ml/min 09/22/22 06:03 Est GFR (Non-Af Amer) 43.3 ml/min 09/22/22 06:03 BUN/Creatinine Ratio 17.0 (10-20) 09/22/22 06:03 Glucose 79 mg/dl (70-99(Fasting)) 09/22/22 06:03 Osmolality 282 mOsm/kg (280-300) 09/21/22 20:30 Lactate 3.1 mmol/L (0.4-2.0) H* 09/22/22 06:07 Calcium 7.5 mg/dl (8.6-10.3) L 09/22/22 06:03 Phosphorus 2.4 mg/dl (2.5-4.9) L 09/21/22 23:19 Magnesium 2.0 mg/dl (1.7-2.4) 09/21/22 20:30 Ferritin > 7500.0 ng/ml (8-388) H 09/21/22 23:19 Total Bilirubin 9.5 mg/dl (0.2-1.0) H 09/22/22 06:03 Direct Bilirubin 5.7 mg/dl (0-0.2) H 09/22/22 06:03 AST 154 U/L (13-39) H 09/22/22 06:03 ALT 52 U/L (7-52) 09/22/22 06:03 Alkaline Phosphatase 573 U/L (34-104) H 09/22/22 06:03 Ammonia 54.0 umol/L (18-72) 09/21/22 20:30 Lactate Dehydrogenase 2050 U/L (86-244) H 09/21/22 23:19 Troponin I High Sens 16.6 pg/ml (0-20) 09/21/22 20:30 Total Protein 4.4 gm/dl (6.0-8.3) L 09/22/22 06:03 Albumin 2.4 gm/dl (3.4-5.0) L 09/22/22 06:03 Triglycerides 226 mg/dl (0-150) H 09/22/22 06:03 Cholesterol TNP 09/22/22 06:03 LDL Cholesterol, Calc TNP 09/22/22 06:03 VLDL Cholesterol, Calc 45 mg/dl (0-30) H 09/22/22 06:03 HDL Cholesterol 5 mg/dl 09/22/22 06:03 Cholesterol/HDL Ratio TNP 09/22/22 06:03 Lipase 21 U/L (11-82) 09/21/22 23:19 Procalcitonin 2.72 ng/ml (0-0.5) H 09/21/22 20:30 Urine Color Dark Yellow 09/22/22 03:49 Urine Appearance Clear (Clear) 09/22/22 03:49 Urine pH 5.0 (4.5-7.5) 09/22/22 03:49 Ur Specific [place] 1.030 (1.000-1.030) 09/22/22 03:49 Urine Protein Trace (Negative) H 09/22/22 03:49 Urine Glucose (UA) Negative (Negative) 09/22/22 03:49 Urine Ketones Negative (Negative) 09/22/22 03:49 Urine Blood Negative (Negative) 09/22/22 03:49 Urine Nitrite Positive (Negative) A 09/22/22 03:49 Urine Bilirubin 2+ (Negative) H 09/22/22 03:49 Urine Urobilinogen Negative (Negative) 09/22/22 03:49 Ur Leukocyte Esterase Trace (Negative) H 09/22/22 03:49 Urine WBC (Auto) 1-5 /hpf (0-5) 09/22/22 03:49 Urine RBC (Auto) 0-4 /hpf (0-4) 09/22/22 03:49 U Hyaline Cast (Auto) 5-10 /lpf (0-5) H 09/22/22 03:49 U Epithel Cells (Auto) 0-5 /lpf (0-5) 09/22/22 03:49 Urine Bacteria (Auto) Negative (Negative) 09/22/22 03:49 Acetaminophen < 3 ug/ml (10-30) L 09/21/22 23:19 Anaplasma Smear See Comment 09/21/22 23:19 Babesia Smear See Comment 09/21/22 23:19 Lyme Disease IgG Ab Negative (Negative) 09/21/22 23:19 Lyme Disease IgM Ab Negative (Negative) 09/21/22 23:19 SARS-CoV-2, RNA, NAAT NEGATIVE (NEGATIVE) 09/21/22 20:35 Blood Type A Positive 09/21/22 20:30 Antibody Screen NEGATIVE 09/21/22 20:30 Impressions Chest X-Ray 09/21/22 20:17 XR chest 1V portable HISTORY: Sepsis COMPARISON: Chest 04/22/2022. FINDINGS: There are low lung volumes. The lungs are clear. No pleural effusions. No pneumothorax. The heart is normal in size. There are calcifications within the aortic knob. Diffuse osteoblastic metastatic disease again noted. IMPRESSION: 1. No acute process within the chest. 2. Diffuse osteoblastic metastatic disease again noted. ACT 112: Negative or not required by law. Electronically signed by: Corbin Brunson M.D. 09/22/2022 8:12 AM KUB X-Ray 09/21/22 20:23 KUB CLINICAL HISTORY: Constipation. FINDINGS: 2 AP supine abdominal radiographs are correlated with abdominal CT dated 04/19/2022. There is mild gaseous distention of the small bowel loops with no radiographic evidence of high-grade obstruction. No evidence of intraperitoneal free air is seen on these supine images. There are no abnormal abdominal calcifications. There is evidence of extensive/diffuse osteoblastic metastatic disease. Numerous surgical clips project over the pelvis. IMPRESSION: 1. There are gas-filled loops of small bowel with no radiographic evidence of high-grade obstruction. 2. Extensive/diffuse osteoblastic metastatic disease is again noted. Electronically signed by: Antelmo Watts M.D. 09/22/2022 8:28 AM Abdomen/Pelvis CT 09/21/22 22:37 Exam(s): CT ABDOMEN + PELVIS With Contrast IV Amt: 89 ml optiray 320 EXAM: CT Abdomen and Pelvis With Intravenous Contrast CLINICAL HISTORY: Reason for exam: jaundicce, metastatic prostate CA. TECHNIQUE: Axial computed tomography images of the abdomen and pelvis with intravenous contrast. Automated exposure control was utilized for the study. A dose lowering technique was utilized adhering to the principles of ALARA. CONTRAST: Patient received 89 ml optiray 320 of IV contrast COMPARISON: No relevant prior studies available. FINDINGS: Lung bases: Unremarkable. No mass. No consolidation. ABDOMEN: Liver: Unremarkable. No mass. Gallbladder and bile ducts: Unremarkable. No calcified stones. No ductal dilation. Pancreas: Unremarkable. No mass. No ductal dilation. Spleen: Unremarkable. No splenomegaly. Adrenals: Unremarkable. No mass. Kidneys and ureters: Unremarkable. No hydronephrosis or delayed nephrogram. Stomach and bowel: Unremarkable. No acute diverticulitis. No small bowel obstruction. No free intraperitoneal air. PELVIS: Appendix: No findings to suggest acute appendicitis. Bladder: Unremarkable. No mass. Reproductive: Prostatectomy. ABDOMEN and PELVIS: Intraperitoneal space: Abdominal ascites. No free air. Bones/joints: Diffuse osteosclerosis, consistent with diffuse osseous metastatic prostate cancer. No acute fracture. No dislocation. Soft tissues: Unremarkable. Vasculature: Diffuse, heterogeneous low attenuation throughout the liver, concerning for hepatic metastases (more likely) versus hepatic congestion (Budd-Chiari syndrome). Correlate for portal vein thrombosis. Consider hepatic ultrasound. Atherosclerotic changes of the aorta. No abdominal aortic aneurysm. Lymph nodes: Unremarkable. No enlarged lymph nodes. IMPRESSION: 1. Diffuse, heterogeneous low attenuation throughout the liver, concerning for hepatic metastases (more likely) versus hepatic congestion (Budd-Chiari syndrome). Correlate for portal vein thrombosis. Consider hepatic ultrasound. 2. Diffuse osteosclerosis, consistent with diffuse osseous metastatic prostate cancer. Electronically signed by: George Ramos MD 09/21/22 23:[address] 09/21/22 22:37 Exam(s): CT HEAD Without Contrast EXAM: CT Head Without Intravenous Contrast CLINICAL HISTORY: Reason for exam: AMS. TECHNIQUE: Axial computed tomography images of the head/brain without intravenous contrast. Automated exposure control was utilized for the study. A dose lowering technique was utilized adhering to the principles of ALARA. COMPARISON: No relevant prior studies available. FINDINGS: No acute intracranial hemorrhage. No midline shift or mass effect. The territorial thakkar-white matter differentiation is maintained throughout. Age-related cerebral volume loss. Periventricular and subcortical white matter hypoattenuation, consistent with chronic microangiopathy. The visualized orbits appear grossly unremarkable. The calvarium is intact. The visualized paranasal sinuses and mastoid air cells are grossly clear. IMPRESSION: No acute intracranial hemorrhage, midline shift, or mass effect. Electronically signed by: George Ramos MD 09/21/22 23:29 PM Portal Vein US 09/21/22 23:44 Exam(s): US LIVER EXAM: US Abdomen Limited CLINICAL HISTORY: Reason for exam: ?portal vein thrombosis?. TECHNIQUE: Real-time ultrasound of the abdomen with image documentation. COMPARISON: CT abdomen and pelvis, same day. FINDINGS/IMPRESSION: Severely heterogeneous hepatic echotexture, as noted on the concomitant abdominal CT scan. The portal vein is patent with hepatopedal flow (correct direction). Low index of suspicion for Budd-Chiari syndrome. Abdominal ascites. Electronically signed by: George Ramos MD 09/22/22 01:19 AM PG Care Time/CCT Total # of Minutes Spent Total Time Spent with Patient: Total time spent is greater than 50% in coordination of care (as documented) at patient's floor/unit and/or counseling patient: Coding Level of Care Code 04402 INT INP/OBS CARE 3/75MIN Diagnoses Abnormal LFTs R79.89 Prostate cancer metastatic to bone C61; C79.51
[2022-09-22 10:38] LABS: Creatine Kinase 213 U/L (30-223)
[2022-09-22] MEDS: LACTULOSE SYRUP 20 GM/30 ML UDC PO SCH ×2 (12:47→20:27)
[2022-09-22] MEDS: SODIUM CHLORIDE 0.9% 1000ML 1,000 ML IV SCH (12:47)
--- NOTE | 2022-09-22 13:21 | Electrocardiogram Report ---
Test Reason : Blood Pressure : / mmHG Vent. Rate : 124 BPM Atrial Rate : 124 BPM P-R Int : 142 ms QRS Dur : 106 ms QT Int : 324 ms P-R-T Axes : 057 -31 041 degrees QTc Int : 465 ms Poor data quality, interpretation may be adversely affected Sinus tachycardia Left axis deviation Low voltage QRS Incomplete right bundle branch block Abnormal ECG When compared with ECG of 22-APR-2022 10:46, Vent. rate has increased BY 48 BPM QRS axis Shifted left Confirmed by Jonas Chang ([id number]) on 09/22/2022 1:20:54 PM Referred By: REFERRED SELF Confirmed By:Jonas Chang
[2022-09-22] MEDS ORDERED: METOPROLOL TARTRATE 25 MG TAB PO ONE (16:48)
[2022-09-22] MEDS: cefTRIAXone SODIUM 2,000 MG in DEXTROSE 5% 50 ML IV SCH (19:29)
[2022-09-22] MEDS: HYDROmorphone INJ 0.5 MG/0.5 ML SYR IV PRN (19:33)
[2022-09-22] MEDS: THIAMINE HCL 100 MG TAB PO SCH (20:27)
[2022-09-23] MEDS: SODIUM CHLORIDE 0.9% 1000ML 1,000 ML IV SCH (01:52)
--- NOTE | 2022-09-23 05:57 | Consultation ---
Date of Consultation September 23, 2022 Assessment & Plan (1) Hyperbilirubinemia: Acute liver injury with radiologic picture that has been interpreted as possible widespread metastases but as discussed under the review of the prostate cancer itself, with relatively stable PSAs and a long-term process primarily with bony metastases, in particular given the very rapid onset, this would be quite unusual. There may be clonal evolution of a much more aggressive prostate cancer subset that is responsible for this and if so there may be very little we can practically do for it. Bactrim can certainly be associated with an acute hepatitis and while he is not febrile, certain viral infections may as well. While liver biopsy might be helpful to further include or exclude metastatic disease as the cause, there could be some more morbidity with that where his coagulation system is moderately though not severely impaired. If that biopsy would not necessarily lead to rapid and effective intervention, it may be more prudent to take a little bit of a "watch and wait" approach to see if there is a significant downsloping his acute liver enzyme changes over the next several days in which case we could focus more on the drug toxicity/infectious spectrum of possibilities (2) Prostate cancer metastatic to bone: Patient did have an aggressive presentation with [place] 9 disease, stage IIIb. While he has multiply relapsed disease, there have been no more than subtle suggestions of visceral metastases and for the most part his course has been 1 of bony metastases, typical of long-term metastatic prostate cancer. Liver enzymes were relatively unremarkable on July 30 other than the modest long-term elevation of alkaline phosphatase undoubtedly related to his bony disease. His PSAs have not dramatically risen. We have certainly been very concerned about his prostate cancer particularly in light of the recent pancytopenia and are still hoping to get marrow material for review to see if this represents extensive involvement there. Nevertheless, while we certainly have to be concerned about metastases to the liver the picture is somewhat atypical in the diffuse involvement and the very rapid evolution of changes. See that discussion. Unfortunately from a practical standpoint, his pancytopenia certainly limits any further cytotoxic therapy unless we can demonstrate overwhelming involvement of the marrow with prostate cancer and even there we would have to be concerned about multidrug resistance given his progression after 2 rounds of docetaxel and then more recently cabazitaxel. The combination of marrow and liver dysfunction would significantly limit our ability to intervene in any meaningful way if this is indeed metastatic disease. (3) Pancytopenia: Pancytopenia has been concerning and unfortunately we have not been technically able to get marrow biopsies either here or with [facility]. We still await input from [facility]. It will be pivotal to determine whether this represents marrow involvement with prostate cancer in which case we may discuss whether additional cytotoxic's in aggressive fashion would be worthwhile though that could lead to even more profound and lasting cytopenias and the response would be uncertain given progression after multiple previous cytotoxic's. Alternatively, would have to be concerned about myelodysplasia or a plasia in the wake of all that previous chemotherapy. His pancytopenia may be a significant part of his future prognosis almost as much as the metastatic prostate cancer. Plan Although we certainly have to be concerned about clonal evolution of the prostate cancer and rapid liver metastatic disease, there are number of atypical features as above. For now would suggest that we take a little more more of a supportive care/watch and wait approach to see if there is spontaneous amelioration which would tend to more favor an acute toxic/infectious etiology. If so, we need to get back on track with his second opinion at [facility] for better definition of the pancytopenia and framing of any possible longer-term approaches to the prostate cancer. While liver biopsy might help to more rapidly differentiate possibilities, it can also be associated with some morbidity. Would suggest we at least wait through the weekend to see where we stand and if things not getting better at that point, may need to reconsider biopsy. Preparation for that might consider giving some vitamin K to see if we can optimize his coagulation profile History of Present Illness Reason for Consultation: Patient with known metastatic prostate cancer presents with acute liver injury, question of rapid malignant progression versus infectious/toxic phenomenon Attending Physician: Tra Barnett MD History of Present Illness Santino is a 72-year-old gentleman diagnosed with prostate cancer in 2013 initial stage IIIb. His initial treatment was at [facility] where he presented with Rufina 4+5 = 9 disease treated with robotic radical prostatectomy to negative margins the lymphatic invasion was present. He was followed with serial PSA and with a rising between [id number] was shown to have primarily diffuse metastatic osteoblastic disease in though there was also some question of possible soft tissue recurrence in the pelvis and a pulmonary nodule. He was treated with ADT and docetaxel with a dramatic reducti on in PSA but relapse radiologically in the skeleton and by PSA in June 2020 treated briefly with abiraterone but with less than optimal response was again treated again with docetaxel completed in July 2021. Unfortunately, he showed additional progression shortly thereafter and received salvage cabazitaxel between August and April 2022 Patient has had persistent triple digit PSAs since that August, relapse though they have been relatively level in the last 4 to 6 months in the high 100s. He is developed a profound pancytopenia, attempted marrow aspiration and biopsy here in early June was aborted because the needle cannot penetrate the pelvis. Neither could [facility] penetrate the pelvis for an adequate specimen. He has been most recently supported with ongoing ADT and transfusion awaiting a second opinion at [facility]. He developed fever during a 09/15/2021 transfusion and has not felt well since. Urinalysis suggested a urinary tract infection and was started shortly thereafter on Bactrim which she took for 2 days. He was admitted with more acute decline and marked elevation of liver enzymes. Allergies Allergy/AdvReac Type Severity Reaction Status Date / Time No Known Allergies Allergy Verified 09/15/22 09:38 Home Medications Medication Instructions Recorded Confirmed Type ondansetron HCl 8 mg tablet 8 mg PO Q8H PRN Nausea 06/06/19 09/21/22 History pantoprazole 40 mg tablet,delayed 40 mg PO DAILY 07/03/20 09/21/22 History release aspirin 81 mg capsule 81 mg PO DAILY 03/12/22 09/21/22 History oxycodone 10 mg tablet 10 mg PO Q4 PRN mod to severe pain 09/21/22 09/21/22 History prednisone 10 mg tablet 10 mg PO DAILY 09/21/22 09/21/22 History Patient History Medical History Hypertension Prostate cancer metastatic to bone Syncope Surgical History S/P prostatectomy Family History Other No pertinent family history Social History Smoking Status: Unknown if ever smoked Tobacco Type: Cigarettes Hx Alcohol Use: No Hx Substance Use: No Preferred Language: [place] Communication Ability: Effective Visual Impairment: No Limitations Hearing Ability: Normal Sign Wirer Required: No Beliefs That Will Affect Care: None marital status: / Current Living Situation: Family Current Living Situation Comment: lives with grandson current occupational status: retired Other Information That Helps Us Care for You: No Feels Safe at Home: Yes Safety Concerns: Feels Safe At This Time Assistive Devices: Denture - Upper and Walker Physical Exam Physical Exam: Patient has been afebrile since admission and overall his vital signs are stable He is only moderately icteric, alert and without gross asterixis or hepatic encephalopathy Lungs seem clear and cardiac rhythm is regular His abdomen is soft. There is no gross distention with ascites, liver does seem to be mildly enlarged but with a relatively smooth edge. It is tender though there is no guarding or rigidity Results & Data Vital Signs (Past 12 Hours) Vital Signs Temp Pulse Pulse Resp BP Pulse Ox Pulse Ox 09/23/22 03:24 37.4 C 108 H 20 104/62 92 09/22/22 19:35 93 09/22/22 19:35 09/22/22 22:07 106 H 09/22/22 22:35 36.8 C 107 H 20 145/90 H 93 09/22/22 19:28 36.9 C 101 H 20 127/76 92 O2 Del Method O2 Del Method 09/23/22 03:24 Room Air 09/22/22 19:35 Nasal Cannula 09/22/22 19:35 Room Air 09/22/22 22:07 09/22/22 22:35 Room Air 09/22/22 19:28 Room Air Laboratory Results Abnormal lab results 09/22/22 09/22/22 09/22/22 Range/Units 06:03 06:03 06:03 RBC 2.90 L (4.70-6.10) M/uL Hgb 8.2 L (14.0-18.0) g/dl Hct 24.1 L (42.0-52.0) % RDW Std Deviation 52.5 H (36.4-46.3) fL RDW Coeff of Dwain 17.6 H (11.5-14.5) % Plt Count 22 L* (130-400) K/uL Absolute Nucleated RBC 0.25 H (0-0.12) K/uL PT 14.9 H (9.0-12.0) Seconds INR 1.4 H (0.9-1.1) Sodium 130 L (136-145) mmol/L Chloride 97 L (98-107) mmol/L BUN 27 H (6-23) mg/dl Creatinine 1.59 H D (0.6-1.4) mg/dl Lactate (0.4-2.0) mmol/L Calcium 7.5 L (8.6-10.3) mg/dl Total Bilirubin 9.5 H (0.2-1.0) mg/dl Direct Bilirubin 5.7 H (0-0.2) mg/dl AST 154 H (13-39) U/L Alkaline Phosphatase 573 H (34-104) U/L Total Protein 4.4 L (6.0-8.3) gm/dl Albumin 2.4 L (3.4-5.0) gm/dl Triglycerides 226 H (0-150) mg/dl VLDL Cholesterol, Calc 45 H (0-30) mg/dl Vitamin B12 (180-914) pg/ml 09/22/22 09/22/22 Range/Units 06:07 12:25 RBC (4.70-6.10) M/uL Hgb (14.0-18.0) g/dl Hct (42.0-52.0) % RDW Std Deviation (36.4-46.3) fL RDW Coeff of Dwain (11.5-14.5) % Plt Count (130-400) K/uL Absolute Nucleated RBC (0-0.12) K/uL PT (9.0-12.0) Seconds INR (0.9-1.1) Sodium (136-145) mmol/L Chloride (98-107) mmol/L BUN (6-23) mg/dl Creatinine (0.6-1.4) mg/dl Lactate 3.1 H* (0.4-2.0) mmol/L Calcium (8.6-10.3) mg/dl Total Bilirubin (0.2-1.0) mg/dl Direct Bilirubin (0-0.2) mg/dl AST (13-39) U/L Alkaline Phosphatase (34-104) U/L Total Protein (6.0-8.3) gm/dl Albumin (3.4-5.0) gm/dl Triglycerides (0-150) mg/dl VLDL Cholesterol, Calc (0-30) mg/dl Vitamin B12 > 1500 H (180-914) pg/ml Diagnostic Findings Chest X-Ray 09/21/22 20:17 XR chest 1V portable HISTORY: Sepsis COMPARISON: Chest 04/22/2022. FINDINGS: There are low lung volumes. The lungs are clear. No pleural effusions. No pneumothorax. The heart is normal in size. There are calcifications within the aortic knob. Diffuse osteoblastic metastatic disease again noted. IMPRESSION: 1. No acute process within the chest. 2. Diffuse osteoblastic metastatic disease again noted. ACT 112: Negative or not required by law. Electronically signed by: Corbin Brunson M.D. 09/22/2022 8:12 AM KUB X-Ray 09/21/22 20:23 KUB CLINICAL HISTORY: Constipation. FINDINGS: 2 AP supine abdominal radiographs are correlated with abdominal CT dated 04/19/2022. There is mild gaseous distention of the small bowel loops with no radiographic evidence of high-grade obstruction. No evidence of intraperitoneal free air is seen on these supine images. There are no abnormal abdominal calcifications. There is evidence of extensive/diffuse osteoblastic metastatic disease. Numerous surgical clips project over the pelvis. IMPRESSION: 1. There are gas-filled loops of small bowel with no radiographic evidence of high-grade obstruction. 2. Extensive/diffuse osteoblastic metastatic disease is again noted. Electronically signed by: Antelmo Watts M.D. 09/22/2022 8:28 AM Abdomen/Pelvis CT 09/21/22 22:37 Exam(s): CT ABDOMEN + PELVIS With Contrast IV Amt: 89 ml optiray 320 EXAM: CT Abdomen and Pelvis With Intravenous Contrast CLINICAL HISTORY: Reason for exam: jaundicce, metastatic prostate CA. TECHNIQUE: Axial computed tomography images of the abdomen and pelvis with intravenous contrast. Automated exposure control was utilized for the study. A dose lowering technique was utilized adhering to the principles of ALARA. CONTRAST: Patient received 89 ml optiray 320 of IV contrast COMPARISON: No relevant prior studies available. FINDINGS: Lung bases: Unremarkable. No mass. No consolidation. ABDOMEN: Liver: Unremarkable. No mass. Gallbladder and bile ducts: Unremarkable. No calcified stones. No ductal dilation. Pancreas: Unremarkable. No mass. No ductal dilation. Spleen: Unremarkable. No splenomegaly. Adrenals: Unremarkable. No mass. Kidneys and ureters: Unremarkable. No hydronephrosis or delayed nephrogram. Stomach and bowel: Unremarkable. No acute diverticulitis. No small bowel obstruction. No free intraperitoneal air. PELVIS: Appendix: No findings to suggest acute appendicitis. Bladder: Unremarkable. No mass. Reproductive: Prostatectomy. ABDOMEN and PELVIS: Intraperitoneal space: Abdominal ascites. No free air. Bones/joints: Diffuse osteosclerosis, consistent with diffuse osseous metastatic prostate cancer. No acute fracture. No dislocation. Soft tissues: Unremarkable. Vasculature: Diffuse, heterogeneous low attenuation throughout the liver, concerning for hepatic metastases (more likely) versus hepatic congestion (Budd-Chiari syndrome). Correlate for portal vein thrombosis. Consider hepatic ultrasound. Atherosclerotic changes of the aorta. No abdominal aortic aneurysm. Lymph nodes: Unremarkable. No enlarged lymph nodes. IMPRESSION: 1. Diffuse, heterogeneous low attenuation throughout the liver, concerning for hepatic metastases (more likely) versus hepatic congestion (Budd-Chiari syndrome). Correlate for portal vein thrombosis. Consider hepatic ultrasound. 2. Diffuse osteosclerosis, consistent with diffuse osseous metastatic prostate cancer. Electronically signed by: George Ramos MD 09/21/22 23:[address] 09/21/22 22:37 Exam(s): CT HEAD Without Contrast EXAM: CT Head Without Intravenous Contrast CLINICAL HISTORY: Reason for exam: AMS. TECHNIQUE: Axial computed tomography images of the head/brain without intravenous contrast. Automated exposure control was utilized for the study. A dose lowering technique was utilized adhering to the principles of ALARA. COMPARISON: No relevant prior studies available. FINDINGS: No acute intracranial hemorrhage. No midline shift or mass effect. The territorial thakkar-white matter differentiation is maintained throughout. Age-related cerebral volume loss. Periventricular and subcortical white matter hypoattenuation, consistent with chronic microangiopathy. The visualized orbits appear grossly unremarkable. The calvarium is intact. The visualized paranasal sinuses and mastoid air cells are grossly clear. IMPRESSION: No acute intracranial hemorrhage, midline shift, or mass effect. Electronically signed by: George Ramos MD 09/21/22 23:29 PM Portal Vein US 09/21/22 23:44 Exam(s): US LIVER EXAM: US Abdomen Limited CLINICAL HISTORY: Reason for exam: ?portal vein thrombosis?. TECHNIQUE: Real-time ultrasound of the abdomen with image documentation. COMPARISON: CT abdomen and pelvis, same day. FINDINGS/IMPRESSION: Severely heterogeneous hepatic echotexture, as noted on the concomitant abdominal CT scan. The portal vein is patent with hepatopedal flow (correct direction). Low index of suspicion for Budd-Chiari syndrome. Abdominal ascites. Electronically signed by: George Ramos MD 09/22/22 01:19 AM PG Care Time/CCT Total # of Minutes Spent Total Time Spent with Patient: Total time spent is greater than 50% in coordination of care (as documented) at patient's floor/unit and/or counseling patient: Coding Level of Care Code 19413 IN/OBS CONSULT LVL 4,60M History Expanded Problem Focused Exam Expanded Problem Focused Medical Decision Making High Complexity Diagnoses Hyperbilirubinemia E80.6 Prostate cancer metastatic to bone C61; C79.51 Pancytopenia D61.818
[2022-09-23 07:52] LABS: Anion Gap 9 (3-11); BUN Creatinine Ratio 17.1 (10-20); Blood Urea Nitrogen 24 mg/dl (6-23); Calcium 7.6 mg/dl (8.6-10.3); Carbon Dioxide 22 mmol/L (21-32); Chloride 99 mmol/L (98-107); Creatinine Clr Calc Pharmacy 47.5 ml/min; Est GFR (African American) 58.6 ml/min; Est GFR (Non-African American) 50.5 ml/min; Glucose 89 mg/dl (70-99(Fasting)); Potassium 4.2 mmol/L (3.5-5.1); Sodium 130 mmol/L (136-145)
[2022-09-23 08:02] LABS: INR 1.3 (0.9-1.1); Prothrombin Time 14.2 Seconds (9.0-12.0)
--- NOTE | 2022-09-23 08:10 | Hospitalist Progress Note ---
Date of Service September 23, 2022 Assessment & Plan (1) Abnormal LFTs: Plan: 72yo male with history of metastatic prostate cancer presenting to [facility] with laboratory evidence suggestive of acute liver failure. Suspected metastatic liver cancer causing acute liver failure, however per heme/onc, several features very atypical Patient reports several days of not feeling well as well as 1-2 days of jaundice/icterus and abdominal bloating (no BM x 2 weeks reported) Laboratory workup thus far with abnormal liver studies - mixed heptatocellular/obstructive pattern with NOG=140, ALT=64, Tbili=10.8, Dbili=5.7, Alkaline juweghsolhz=918. These results were mildly abnormal on 09/15/22 with AST of 55, Tbili of 2.4 and AP of 530 with known bony metastatic disease. UA from 09/15/22 also with +bilirubin/urobilinogen suggestive of underlying hepatic pathology. INR=1.3, Platelets=29, Albumin=2.8, Ga=476 Reports some hypotension at home as well, ?shock contributing as well US doppler NEGATIVE for portal vein thrombosis Imaging as above suggestive of hepatic metastatic disease as source but cannot rule out medication induced w/ bactrim use -- Is concerning for malignancy but could be multifactorial w/ bactrim/UTI/RAYMUNDO/possible rhabdo Patient with marked elevation of Ferritin >7500, WIJ=7597. Tylenol level <3. Ammonia 54 Lyme negative. ANaplasmosis/babesiosis PCR pending Procalcitonin 2.72, blood cultures pending. Last low grade temp 37.7 yesterday, nothing since Lactic trending down on repeat -- ?shock vs infectious vs malignancy related. Copious IVF replacement and improvement in Cr and encouraged to push PO fluids for today rather than additional IVF. No signifcant dehydration on examination CK checked but has gotten several L IVF thus far, borderline of high normal on range. ?mild rhabdo prior to admit Remains on IV ceftriaxone for now. Monitor cultures GI consulted Heme/onc consulted Hepatitis panel pending. Will add CMV/EBV as well ?tap for eval malignant ascites --> defer to heme/onc --> see their note. Plts currently 17 and watchful waiting for now No significant large volume ascites noted on imaging Constipation w/ no BM x 2 weeks reported and scheduled Lactulose 20mg BID and has had several BMs and will continue LFTs w/ TB slightly worse at 10.8, AST about the same but ALP from 5--> 700s again. Monitor on repeat (2) Prostate cancer metastatic to bone: Plan: Noted. Concern for hepatic involvement now. Patient had been on Oxycodone PRN/prednisone 10mg daily. Dilaudid as needed for pain per scale bowel regimen w/ lactulose. consider continuing at d/c given no BM x 2 weeks reported and titrate as needed Oncology consultation appreciated -- see note (3) Hypertension: Plan: Blood pressure presently stable. Daughter reports lower blood pressures at home over the last several days --? how low --? shock liver. No granular casts on UA however On prednisone 10mg daily. Cortisol AM not significantly low but ?adrenal insuff contributing? If hypotensive would given stress steroids but will continue 10mg daily for now Will schedule metoprolol tartrate 25mg BID for today -- was given 12.5mg x 1 yesterday for elevated HR and went to the 90s/low 100s. HR to 120-130s at times today, sinus tachy. No lightheaded/dizziness reported Monitor on telemetry (4) Anemia: Plan: hgb appears around baseline monitor for any bleeding check b12/b1 w/ prior labs, folate in AM --> b12 acceptable, folate LOW and replacement ordered and would continue at d/c Iron panel w/ ferritin elevation as above. Iron 118. Unsat IBV <55 Hgb 7.6 on AM labs but had been getting copious IVF for dehydration/low BP/RAYMUNDO and suspect some dilutional aspect Heme/onc on consult as above Monitor CBC in AM/for any bleeding (5) RAYMUNDO (acute kidney injury): Plan: on admit, BUN/Cr elevated to 31/1.9 IVF x 1 L on admit, BUN/Cr improved to 27/1.59 Checked CK -- as above Possible recent UTI but do not have culture data Coverage w/ Rocephin IV as above and monitoring blood cultures Additional IVF overnight w/ NSS for 1.5L and repeat BUN/Cr improved to 24/1.4 Will avoid further IVF to prevent overload given ascites and encouraged to push oral fluids for now Avoid nephrotoxins/renal dose meds as able Bladder scan as needed for urine retention Monitor urine cx w/ understanding had been on Bactrim [employer] and had gotten dose Ceftriaxone Monitor BMP in AM (6) Hyponatremia: Plan: Na 129 on admit, 130 on repeat Stable at 130 TSH wnl Likely now from slightly volume overloaded state and will avoid additional IVF at present and encourage oral intake Monitor in AM/consider urine studies Poor PO intake prior to admission but reported improving today since moving his bowels Plan continued inpatient stay Admission and Anticipated Discharge Date Admission Date: September 22, 2022 Supervising Physician Co-Signing Physician Notes The patient was not seen by me. The chart was reviewed. Case discussed with LU Montiel. Agree with assessment and plan Subjective Eval this afternoon. Daughter at bedside. Moving his bowels multiple times and will continue the lactulose. ABdomen distended but nontender, less tense than yesterday. Discussed w/ low plt would want to hold off paracentesis for now. Concerns for malignancy but also bactrim induced given different features/discussion with heme/onc. Daughter notes her dad did usually get up to watch shows but not super active but after starting the abx tue/ by tuesday her dad was just so week and looked so poorly that he needed to be seen. No fevers. HR elevated but did improve to 90s -low 100s w/ 12.5 MTP yesterday and will schedule BID given HR to 120-130s today. No palpitations, chest pain or shortness of breath reported. Discussed monitoring his LFTs, cultures. Continue IV abx. Does have some LE swelling but calves nontender. 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 Encouraged pushing oral fluids to avoid additional IVF at this time. Questions/concerns addressed at this time. Physical Exam Physical Exam: General: WD/WN male, chronically ill appearing but does appear slightly improved, NAD, daughter at bedside, jaundiced appearance HEENT: +bilateral icterus, mm slightly dry but improving, HARD of hearing Resp: diminished in the bases, poor effort, no w/c, on room air CV: regular rhythm, slightly tachycardic to the 120s, no significant m/r/g, 1-2+ b/l LE edema but calves nontender GI: +BS throughout, DISTENDED (slightly less distension), tense/ascites, no significant tenderness to palpation : no gu MSK/Neuro: no focal deficits, no slurred speech Psych: AO to person/place, intermittent forgetfulness to time Results & Data Results & Data Vital Signs (Past 12 Hours) Vital Signs Temp Pulse Pulse Resp BP Pulse Ox O2 Del Method 09/23/22 03:24 37.4 C 108 H 20 104/62 92 Room Air 09/22/22 22:07 106 H 09/22/22 22:35 36.8 C 107 H 20 145/90 H 93 Room Air Laboratory Results 09/23/22 09/23/22 09/23/22 Range/Units 07:07 07:07 07:07 WBC 6.95 (4.8-10.8) K/ul RBC 2.69 L (4.70-6.10) M/uL Hgb 7.6 L (14.0-18.0) g/dl Hct 22.9 L (42.0-52.0) % MCV 85.1 (80.0-100.0) fL MCH 28.3 (25.0-34.0) pg MCHC 33.2 (32.0-36.0) g/dL RDW Std Deviation 54.3 H (36.4-46.3) fL RDW Coeff of Dwain 17.8 H (11.5-14.5) % Plt Count 17 L* (130-400) K/uL Absolute Nucleated RBC 0.35 H (0-0.12) K/uL Nucleated RBC % (auto) 5.0 % Neutrophils % (Manual) 60 % Lymphocytes % (Manual) 18 % Monocytes % (Manual) 10 % Eosinophils % (Manual) 2 % Basophils % (Manual) 3 % Metamyelocytes % (Man) 2 % Myelocytes % (Man) 5 % Neutrophils # (Manual) 4.17 (1.40-6.50) K/uL Total Absolute Neuts 4.17 (1.4-6.5) K/uL Lymphocytes # (Manual) 1.25 (1.2-3.4) K/uL Total Abs Lymphocytes 1.25 (1.2-3.4) K/uL Monocytes # (Manual) 0.70 H (0.11-0.59) K/uL Eosinophils # (Manual) 0.14 (0-0.50) K/uL Basophils # (Manual) 0.21 H (0-0.2) K/uL Metamyelocytes # (Man) 0.14 H (0-0) K/uL Myelocytes # (Manual) 0.35 H (0-0) K/uL Polychromasia 1+ Target Cells 1+ Tear Drop Cells 1+ Haptoglobin (43-212) mg/dL PT (9.0-12.0) Seconds INR (0.9-1.1) Sodium (136-145) mmol/L Potassium (3.5-5.1) mmol/L Chloride (98-107) mmol/L Carbon Dioxide (21-32) mmol/L Anion Gap (3-11) BUN (6-23) mg/dl Creatinine (0.6-1.4) mg/dl Est Cr Clr Drug Dosing ml/min Est GFR ( Amer) ml/min Est GFR (Non-Af Amer) ml/min BUN/Creatinine Ratio (10-20) Glucose (70-99(Fasting)) mg/dl Calcium (8.6-10.3) mg/dl Iron (35-175) mcg/dl TIBC Unsaturated IBC (155-355) mcg/dl Transferrin % Sat Ferritin (8-388) ng/ml Total Bilirubin (0.2-1.0) mg/dl Direct Bilirubin (0-0.2) mg/dl AST (13-39) U/L ALT (7-52) U/L Alkaline Phosphatase (34-104) U/L Total Protein (6.0-8.3) gm/dl Albumin (3.4-5.0) gm/dl Folate 3.95 L (>5.38) ng/ml Cortisol AM Sample 16.01 (6.2-22.6) mcg/dl Hepatitis A IgM Ab (NON-REACTIVE) Hep Bs Antigen (NON-REACTIVE) Hep Bs Ag Confirmation Hep B Core IgM Ab (NON-REACTIVE) Hepatitis C Ab (EIA) (NON-REACTIVE) Hep C Ab Signal/Cutoff (<1.00) 09/23/22 09/23/22 09/21/22 Range/Units 07:07 07:07 23:19 WBC (4.8-10.8) K/ul RBC (4.70-6.10) M/uL Hgb (14.0-18.0) g/dl Hct (42.0-52.0) % MCV (80.0-100.0) fL MCH (25.0-34.0) pg MCHC (32.0-36.0) g/dL RDW Std Deviation (36.4-46.3) fL RDW Coeff of Dwain (11.5-14.5) % Plt Count (130-400) K/uL Absolute Nucleated RBC (0-0.12) K/uL Nucleated RBC % (auto) % Neutrophils % (Manual) % Lymphocytes % (Manual) % Monocytes % (Manual) % Eosinophils % (Manual) % Basophils % (Manual) % Metamyelocytes % (Man) % Myelocytes % (Man) % Neutrophils # (Manual) (1.40-6.50) K/uL Total Absolute Neuts (1.4-6.5) K/uL Lymphocytes # (Manual) (1.2-3.4) K/uL Total Abs Lymphocytes (1.2-3.4) K/uL Monocytes # (Manual) (0.11-0.59) K/uL Eosinophils # (Manual) (0-0.50) K/uL Basophils # (Manual) (0-0.2) K/uL Metamyelocytes # (Man) (0-0) K/uL Myelocytes # (Manual) (0-0) K/uL Polychromasia Target Cells Tear Drop Cells Haptoglobin 204 (43-212) mg/dL PT 14.2 H (9.0-12.0) Seconds INR 1.3 H (0.9-1.1) Sodium 130 L (136-145) mmol/L Potassium 4.2 (3.5-5.1) mmol/L Chloride 99 (98-107) mmol/L Carbon Dioxide 22 (21-32) mmol/L Anion Gap 9 (3-11) BUN 24 H (6-23) mg/dl Creatinine 1.40 (0.6-1.4) mg/dl Est Cr Clr Drug Dosing 47.5 ml/min Est GFR ( Amer) 58.6 ml/min Est GFR (Non-Af Amer) 50.5 ml/min BUN/Creatinine Ratio 17.1 (10-20) Glucose 89 (70-99(Fasting)) mg/dl Calcium 7.6 L (8.6-10.3) mg/dl Iron 118 (35-175) mcg/dl TIBC TNP Unsaturated IBC < 55 L (155-355) mcg/dl Transferrin % Sat TNP Ferritin > 7500.0 H (8-388) ng/ml Total Bilirubin 10.8 H (0.2-1.0) mg/dl Direct Bilirubin 6.3 H (0-0.2) mg/dl AST 156 H (13-39) U/L ALT 51 (7-52) U/L Alkaline Phosphatase 708 H (34-104) U/L Total Protein 4.4 L (6.0-8.3) gm/dl Albumin 2.4 L (3.4-5.0) gm/dl Folate (>5.38) ng/ml Cortisol AM Sample (6.2-22.6) mcg/dl Hepatitis A IgM Ab NON-REACTIVE (NON-REACTIVE) Hep Bs Antigen NON-REACTIVE (NON-REACTIVE) Hep Bs Ag Confirmation TNP Hep B Core IgM Ab NON-REACTIVE (NON-REACTIVE) Hepatitis C Ab (EIA) NON-REACTIVE (NON-REACTIVE) Hep C Ab Signal/Cutoff 0.03 (<1.00) PG Care Time/CCT Total # of Minutes Spent Total Time Spent with Patient: Total time spent is greater than 50% in coordination of care (as documented) at patient's floor/unit and/or counseling patient: Coding Level of Care Code 78694 SUB INP/OBS CARE 3/50MIN Diagnoses Abnormal LFTs R79.89 Prostate cancer metastatic to bone C61; C79.51 Hypertension I10 Anemia D64.9 Anemia type: unspecified type RAYMUNDO (acute kidney injury) N17.9 Hyponatremia E87.1 (4) Anemia Anemia type: unspecified type Qualified Code(s): D64.9 - Anemia, unspecified
[2022-09-23] MEDS: PANTOprazole 40 MG TAB PO SCH (08:25)
[2022-09-23] MEDS: predniSONE 10 MG TABLET PO SCH (08:25)
[2022-09-23] MEDS: THIAMINE HCL 100 MG TAB PO SCH ×2 (08:25→20:05)
[2022-09-23] MEDS: LACTULOSE SYRUP 20 GM/30 ML UDC PO SCH ×2 (08:25→20:04)
[2022-09-23 08:42] LABS: Hematocrit (blood only) 22.9 % (42.0-52.0); Hemoglobin 7.6 g/dl (14.0-18.0); Mean Corpuscular Hemoglobin 28.3 pg (25.0-34.0); Mean Corpuscular Hgb Conc 33.2 g/dL (32.0-36.0); Mean Corpuscular Volume 85.1 fL (80.0-100.0); Nucleated RBC # (auto) 0.35 K/uL (0-0.12); Polychromasia 1+; RDW Coefficient of Variation 17.8 % (11.5-14.5); RDW Standard Deviation 54.3 fL (36.4-46.3); Red Blood Count 2.69 M/uL (4.70-6.10); Target Cells 1+; Tear Drop Cells 1+; White Blood Count 6.95 K/ul (4.8-10.8)
[2022-09-23 08:44] LABS: Platelet Count 17 K/uL (130-400)
[2022-09-23 08:54] LABS: Alanine Aminotransferase 51 U/L (7-52); Albumin Level 2.4 gm/dl (3.4-5.0); Alkaline Phosphatase 708 U/L (34-104); Aspartate Aminotransferase 156 U/L (13-39); Bilirubin Direct 6.3 mg/dl (0-0.2); Bilirubin,Total 10.8 mg/dl (0.2-1.0); Ferritin > 7500.0 ng/ml (8-388); Iron 118 mcg/dl (35-175); Total Protein 4.4 gm/dl (6.0-8.3); Unsaturated Iron Binding Cap < 55 mcg/dl (155-355)
[2022-09-23 10:10] LABS: ALC (manual) 1.25 K/uL (1.2-3.4); ANC (manual) 4.17 K/uL (1.4-6.5); Basophils # (manual) 0.21 K/uL (0-0.2); Basophils % (manual) 3 %; Eosinophils # (manual) 0.14 K/uL (0-0.50); Eosinophils % (manual) 2 %; Lymphocytes # (manual) 1.25 K/uL (1.2-3.4); Lymphocytes % (manual) 18 %; Metamyelocytes # (manual) 0.14 K/uL (0-0); Metamyelocytes % (manual) 2 %; Monocytes % (manual) 10 %; Myelocytes # (manual) 0.35 K/uL (0-0); Myelocytes % (manual) 5 %; Neutrophils # (manual) 4.17 K/uL (1.40-6.50); Neutrophils % (manual) 60 %
--- NOTE | 2022-09-23 10:34 | Gastroenterology Progress Note ---
Date of Service September 23, 2022 Assessment & Plan (1) Abnormal LFTs: (2) Prostate cancer metastatic to bone: Plan Patient is a 72 y.o. male with elevated liver panel, jaundice, and imaging suggestive of hepatic mets which is the likely source of elevated liver enzymes. -Agree with conservative management. -Await viral serologies as ordered, trend liver panel. -Continue supportive care. Admission and Anticipated Discharge Date Admission Date: September 22, 2022 Supervising Physician Co-Signing Physician Notes Agree with AMANDA Canales as above Abd: Soft, NT, ND, +BS Continue current therapy and supportive care If pruritus occurs, can start Questran +or- Rifampin therapy Subjective Patient reports feeling tired. No reported pruritus despite slightly worsened TB. Labs today demonstrated TB 10.8, DB 6.3, AST 156. ALT 51, and ALP 708. Lyme and anaplasmosis negative. Acute hep panel is pending. No abdominal pain or other GI complaints. Review of Systems Constitutional: as per Subjective / HPI Gastrointestinal: as per Subjective / HPI Physical Exam Constitutional: WD/WN, vitals as above Eyes: + scleral abnormality (bilateral icterus) and EOM intact bilaterally Neck: normal visual inspection Respiratory: normal respiratory effort, lungs clear to auscultation Cardiovascular: Rate/Rhythm: regular rate and regular rhythm Gastrointestinal (Abdomen): Inspection/Auscultation: + abdomen distended and normal bowel sounds Percussion/Palpation: abdomen soft; abdomen nontender Musculoskeletal: no cyanosis or clubbing, extremities motor strength 5/5 Skin: + jaundice Psychiatric: A+Ox3, euthymic affect Results & Data Results & Data Vital Signs (Past 12 Hours) Vital Signs Temp Pulse Pulse Resp BP Pulse Ox O2 Del Method 09/23/22 09:44 117 H 09/23/22 09:44 Room Air 09/23/22 08:22 36.8 C 124 H 18 123/77 94 Room Air 09/23/22 03:24 37.4 C 108 H 20 104/62 92 Room Air 09/22/22 22:35 36.8 C 107 H 20 145/90 H 93 Room Air PG Care Time/CCT Total # of Minutes Spent Total Time Spent with Patient: Total time spent is greater than 50% in coordination of care (as documented) at patient's floor/unit and/or counseling patient: Coding Level of Care Code 37988 SUB INP/OBS CARE 50MIN Diagnoses Abnormal LFTs R79.89 Prostate cancer metastatic to bone C61; C79.51
[2022-09-23 12:08] LABS: HBSAG NON-REACTIVE (NON-REACTIVE); Haptoglobin 204 mg/dL (43-212); Hepatitis A Antibody IgM NON-REACTIVE (NON-REACTIVE); Hepatitis B Core Antibody IgM NON-REACTIVE (NON-REACTIVE)
[2022-09-23] MEDS: FOLIC ACID 1 MG TAB PO SCH (12:55)
[2022-09-23] MEDS: METOPROLOL TARTRATE 25 MG TAB PO SCH ×2 (15:37→20:05)
--- NOTE | 2022-09-23 16:12 | XCELERA ---
[id number] \\[id number]
[2022-09-23] MEDS: cefTRIAXone SODIUM 2,000 MG in DEXTROSE 5% 50 ML IV SCH (19:44)
[2022-09-23] MEDS: HYDROmorphone INJ 0.5 MG/0.5 ML SYR IV PRN (19:49)
[2022-09-24] MEDS: HYDROmorphone INJ 0.5 MG/0.5 ML SYR IV PRN ×5 (04:15→23:42)
[2022-09-24 07:08] LABS: Albumin Level 2.5 gm/dl (3.4-5.0); Bilirubin Direct 7.1 mg/dl (0-0.2); Bilirubin,Total 12.4 mg/dl (0.2-1.0); Calcium 8.1 mg/dl (8.6-10.3); Creatinine Clr Calc Pharmacy 43.5 ml/min; Est GFR (African American) 52.6 ml/min; Est GFR (Non-African American) 45.4 ml/min; Potassium 4.5 mmol/L (3.5-5.1); Total Protein 4.6 gm/dl (6.0-8.3)
[2022-09-24 07:13] LABS: Hematocrit (blood only) 23.8 % (42.0-52.0); Hemoglobin 7.9 g/dl (14.0-18.0); Mean Corpuscular Hemoglobin 28.4 pg (25.0-34.0); Mean Corpuscular Hgb Conc 33.2 g/dL (32.0-36.0); Mean Corpuscular Volume 85.6 fL (80.0-100.0); Nucleated RBC # (auto) 0.51 K/uL (0-0.12); Nucleated RBC % (auto) 6.6 %; Platelet Count 13 K/uL (130-400); RDW Coefficient of Variation 18.1 % (11.5-14.5); RDW Standard Deviation 55.8 fL (36.4-46.3); Red Blood Count 2.78 M/uL (4.70-6.10); White Blood Count 7.71 K/ul (4.8-10.8)
[2022-09-24 07:15] LABS: Polychromasia 1+; Tear Drop Cells 1+
[2022-09-24 07:24] LABS: INR 1.3 (0.9-1.1); Prothrombin Time 13.7 Seconds (9.0-12.0)
[2022-09-24 07:29] LABS: ALC (manual) 1.46 K/uL (1.2-3.4); ANC (manual) 4.93 K/uL (1.4-6.5); Basophils # (manual) 0.23 K/uL (0-0.2); Eosinophils # (manual) 0.08 K/uL (0-0.50); Lymphocytes # (manual) 1.46 K/uL (1.2-3.4); Metamyelocytes # (manual) 0.23 K/uL (0-0); Monocytes # (manual) 0.77 K/uL (0.11-0.59); Myelocytes # (manual) 0.08 K/uL (0-0); Neutrophils # (manual) 4.93 K/uL (1.40-6.50); Neutrophils % (manual) 64 %
[2022-09-24] MEDS: THIAMINE HCL 100 MG TAB PO SCH ×2 (08:10→19:24)
[2022-09-24] MEDS: METOPROLOL TARTRATE 25 MG TAB PO SCH ×2 (08:10→19:24)
[2022-09-24] MEDS: PANTOprazole 40 MG TAB PO SCH (08:11)
[2022-09-24] MEDS: predniSONE 10 MG TABLET PO SCH (08:11)
[2022-09-24] MEDS: FOLIC ACID 1 MG TAB PO SCH (08:11)
[2022-09-24] MEDS: LACTULOSE SYRUP 20 GM/30 ML UDC PO SCH ×2 (08:11→19:23)
--- NOTE | 2022-09-24 08:11 | Hospitalist Progress Note ---
Date of Service September 24, 2022 Assessment & Plan (1) Abnormal LFTs: Plan: 72yo male with history of metastatic prostate cancer presenting to [facility] with laboratory evidence suggestive of acute liver failure. Suspected metastatic liver cancer causing acute liver failure, however per heme/onc, several features very atypical Patient reports several days of not feeling well as well as 1-2 days of jaundice/icterus and abdominal bloating (no BM x 2 weeks reported) Laboratory workup thus far with abnormal liver studies - mixed heptatocellular/obstructive pattern with LAP=589, ALT=64, Tbili=10.8, Dbili=5.7, Alkaline lhquyzciver=977. These results were mildly abnormal on 09/15/22 with AST of 55, Tbili of 2.4 and AP of 530 with known bony metastatic disease. UA from 09/15/22 also with +bilirubin/urobilinogen suggestive of underlying hepatic pathology. INR=1.3, Platelets=29, Albumin=2.8, Al=218 Reports some hypotension at home as well, ?shock contributing as well US doppler NEGATIVE for portal vein thrombosis Imaging as above suggestive of hepatic metastatic disease as source but cannot rule out medication induced w/ bactrim use -- Is concerning for malignancy but could be multifactorial w/ bactrim/UTI/RAYMUNDO/possible rhabdo Patient with marked elevation of Ferritin >7500, PUV=2618. Tylenol level <3. Ammonia 54 Lyme negative. ANaplasmosis/babesiosis PCR pending Procalcitonin 2.72, blood cultures pending. Last low grade temp 37.7 yesterday, nothing since Lactic trending down on repeat -- ?shock vs infectious vs malignancy related. Copious IVF replacement and improvement in Cr and encouraged to push PO fluids for today rather than additional IVF. No signifcant dehydration on examination CK checked but has gotten several L IVF thus far, borderline of high normal on range. ?mild rhabdo prior to admit Remains on IV ceftriaxone for now. Monitor cultures GI consulted Heme/onc consulted Hepatitis panel pending. Will add CMV/EBV as well ?tap for eval malignant ascites --> defer to heme/onc --> see their note. Plts currently 17 and watchful waiting for now No significant large volume ascites noted on imaging Constipation w/ no BM x 2 weeks reported and scheduled Lactulose 20mg BID and has had several BMs and will continue LFTs w/ TB slightly worse at 10.8, AST about the same but ALP from 5--> 700s again. Monitor on repeat 09/24 LFTs without significant improvement -- TB worse at 12.4, Direct 7.1. AST 162, ALT 53, ALP 799 GI on consult -- checking MRCP for further eval Avoiding hepatotoxins Continue lactulose BID -- 3BM reported last evening Monitor labs on repeat (2) Prostate cancer metastatic to bone: Plan: Noted. Concern for hepatic involvement now. Patient had been on Oxycodone PRN/prednisone 10mg daily. Dilaudid as needed for pain per scale bowel regimen w/ lactulose. consider continuing at d/c given no BM x 2 weeks reported and titrate as needed Oncology consultation appreciated -- see note MRCP for further eval (3) Hypertension: Plan: Blood pressure presently stable. Daughter reports lower blood pressures at home over the last several days --? how low --? shock liver. No granular casts on UA however On prednisone 10mg daily. Cortisol AM not significantly low but ?adrenal insuff contributing? If hypotensive would given stress steroids but will continue 10mg daily for now HR to 120-130s at times 09/23, sinus tachy. No lightheaded/dizziness reported Scheduled metoprolol tartrate 25mg BID and HRs improved and will monitor BP stable 114/64 Monitor on telemetry (4) Anemia: Plan: hgb appears around baseline monitor for any bleeding check b12/b1 w/ prior labs, folate in AM --> b12 acceptable, folate LOW and replacement ordered and would continue at d/c Iron panel w/ ferritin elevation as above. Iron 118. Unsat IBV <55 Hgb 7.6 on AM labs yesterday but 7.9 off IVF Heme/onc on consult as above Monitor CBC in AM/for any bleeding. Plt low but holding off platelets for now and will monitor (5) RAYMUNDO (acute kidney injury): Plan: on admit, BUN/Cr elevated to 31/1.9 IVF x 1 L on admit, BUN/Cr improved to 27/1.59 Checked CK -- as above Possible recent UTI but do not have culture data. Repeat UA Additional IVF provided overnight but holding any further Eating/drinking , making urine. No significant PVR but will need to monitor Avoid nephrotoxins/renal dose meds as able BMP in AM (6) Hyponatremia: Plan: Na 129 on admit, 130 on repeat Stable at 130 --> 131 TSH wnl Likely now from slightly volume overloaded state and will avoid additional IVF at present and encourage oral intake Monitor in AM/consider urine studies Poor PO intake prior to admission but reported improving today since moving his bowels and more increased appetite 5/5 reported Plan continued inpatient stay MRCP for further eval Admission and Anticipated Discharge Date Admission Date: September 22, 2022 Supervising Physician Co-Signing Physician Notes The patient was not seen by me. The chart was reviewed. Case discussed with LU Montiel. Agree with assessment and plan Subjective Eval this morning, laying in bed. Got some medication for pain this morning, effective. Moved his bowels 3 times last night, abdomen softer but still distended +fluid. Reporting improvement of appetite and thinks he may have eaten too this morning. Denies any chest pain at present. Does get a little short of breath when up/moving around. No palpitations/lightheadedness reported. Discussed hgb levels -- he states he usually gets transfusion when ~<7 or 7.5. Discussed will keep eye on these levels. Obtaining MRCP today for eval w/ GI. Awaiting viral serologies. No bleeding anywhere reported at present. Questions/concerns addressed at this time. Physical Exam Physical Exam: General: WD/WN male, chronically ill appearing but does appear slightly improved, improved appetite reported, significant jaundiced appearance noted, NAD HEENT: +bilateral icterus, mm slightly dry but improving, HARD of hearing Resp: diminished in the bases, poor effort, no w/c, on room air CV: regular rhythm, slightly tachycardic to the 120s, no significant m/r/g, 1-2+ b/l LE edema but calves nontender GI: +BS throughout, DISTENDED (slightly less distension), LESS tense, softer but still with ascites, no significant tenderness but does have some RUQ tenderness, no guarding/rebound : no gu MSK/Neuro: no focal deficits, no slurred speech Psych: AO to person/place, Results & Data Results & Data Vital Signs (Past 12 Hours) Vital Signs Temp Pulse Pulse Resp BP Pulse Ox Pulse Ox 09/23/22 23:00 99 H 09/24/22 03:07 36.9 C 95 H 18 149/85 H 94 09/24/22 01:00 94 09/23/22 23:29 36.7 C 92 H 18 122/75 94 O2 Del Method O2 Del Method 09/23/22 23:00 09/24/22 03:07 Room Air 09/24/22 01:00 Room Air 09/23/22 23:29 Room Air Laboratory Results 09/24/22 09/24/22 09/24/22 Range/Units 06:00 06:00 06:00 WBC (4.8-10.8) K/ul RBC (4.70-6.10) M/uL Hgb (14.0-18.0) g/dl Hct (42.0-52.0) % MCV (80.0-100.0) fL MCH (25.0-34.0) pg MCHC (32.0-36.0) g/dL RDW Std Deviation (36.4-46.3) fL RDW Coeff of Dwain (11.5-14.5) % Plt Count (130-400) K/uL Absolute Nucleated RBC (0-0.12) K/uL Nucleated RBC % (auto) % Neutrophils % (Manual) % Lymphocytes % (Manual) % Monocytes % (Manual) % Eosinophils % (Manual) % Basophils % (Manual) % Metamyelocytes % (Man) % Myelocytes % (Man) % Neutrophils # (Manual) (1.40-6.50) K/uL Total Absolute Neuts (1.4-6.5) K/uL Lymphocytes # (Manual) (1.2-3.4) K/uL Total Abs Lymphocytes (1.2-3.4) K/uL Monocytes # (Manual) (0.11-0.59) K/uL Eosinophils # (Manual) (0-0.50) K/uL Basophils # (Manual) (0-0.2) K/uL Metamyelocytes # (Man) (0-0) K/uL Myelocytes # (Manual) (0-0) K/uL Polychromasia Target Cells Tear Drop Cells Haptoglobin (43-212) mg/dL PT 13.7 H (9.0-12.0) Seconds INR 1.3 H (0.9-1.1) Sodium 131 L (136-145) mmol/L Potassium 4.5 (3.5-5.1) mmol/L Chloride 99 (98-107) mmol/L Carbon Dioxide 21 (21-32) mmol/L Anion Gap 11 (3-11) BUN 26 H (6-23) mg/dl Creatinine 1.53 H (0.6-1.4) mg/dl Est Cr Clr Drug Dosing 43.5 ml/min Est GFR ( Amer) 52.6 ml/min Est GFR (Non-Af Amer) 45.4 ml/min BUN/Creatinine Ratio 17.0 (10-20) Glucose 76 (70-99(Fasting)) mg/dl Calcium 8.1 L (8.6-10.3) mg/dl Iron (35-175) mcg/dl TIBC Unsaturated IBC (155-355) mcg/dl Transferrin % Sat Ferritin (8-388) ng/ml Total Bilirubin 12.4 H (0.2-1.0) mg/dl Direct Bilirubin 7.1 H (0-0.2) mg/dl AST 162 H (13-39) U/L ALT 53 H (7-52) U/L Alkaline Phosphatase 799 H (34-104) U/L B-Natriuretic Peptide 67 (0-100) pg/ml Total Protein 4.6 L (6.0-8.3) gm/dl Albumin 2.5 L (3.4-5.0) gm/dl Folate (>5.38) ng/ml CMV IgM Ab CMV IgG Ab/TORCH EBV Capsid Ag IgG Ab EBV Capsid Ag IgM Ab EBV Nuclear Antigen Ab EBV Antibody Interp Hepatitis A IgM Ab (NON-REACTIVE) Hep Bs Antigen (NON-REACTIVE) Hep Bs Ag Confirmation Hep B Core IgM Ab (NON-REACTIVE) Hepatitis C Ab (EIA) (NON-REACTIVE) Hep C Ab Signal/Cutoff (<1.00) 09/24/22 09/23/22 09/23/22 Range/Units 06:00 07:07 07:07 WBC 7.71 (4.8-10.8) K/ul RBC 2.78 L (4.70-6.10) M/uL Hgb 7.9 L (14.0-18.0) g/dl Hct 23.8 L (42.0-52.0) % MCV 85.6 (80.0-100.0) fL MCH 28.4 (25.0-34.0) pg MCHC 33.2 (32.0-36.0) g/dL RDW Std Deviation 55.8 H (36.4-46.3) fL RDW Coeff of Dwain 18.1 H (11.5-14.5) % Plt Count 13 L* (130-400) K/uL Absolute Nucleated RBC 0.51 H (0-0.12) K/uL Nucleated RBC % (auto) 6.6 % Neutrophils % (Manual) 64 % Lymphocytes % (Manual) % Monocytes % (Manual) % Eosinophils % (Manual) % Basophils % (Manual) % Metamyelocytes % (Man) % Myelocytes % (Man) % Neutrophils # (Manual) 4.93 (1.40-6.50) K/uL Total Absolute Neuts 4.93 (1.4-6.5) K/uL Lymphocytes # (Manual) 1.46 (1.2-3.4) K/uL Total Abs Lymphocytes 1.46 (1.2-3.4) K/uL Monocytes # (Manual) 0.77 H (0.11-0.59) K/uL Eosinophils # (Manual) 0.08 (0-0.50) K/uL Basophils # (Manual) 0.23 H (0-0.2) K/uL Metamyelocytes # (Man) 0.23 H (0-0) K/uL Myelocytes # (Manual) 0.08 H (0-0) K/uL Polychromasia 1+ Target Cells Tear Drop Cells 1+ Haptoglobin (43-212) mg/dL PT (9.0-12.0) Seconds INR (0.9-1.1) Sodium (136-145) mmol/L Potassium (3.5-5.1) mmol/L Chloride (98-107) mmol/L Carbon Dioxide (21-32) mmol/L Anion Gap (3-11) BUN (6-23) mg/dl Creatinine (0.6-1.4) mg/dl Est Cr Clr Drug Dosing ml/min Est GFR ( Amer) ml/min Est GFR (Non-Af Amer) ml/min BUN/Creatinine Ratio (10-20) Glucose (70-99(Fasting)) mg/dl Calcium (8.6-10.3) mg/dl Iron (35-175) mcg/dl TIBC Unsaturated IBC (155-355) mcg/dl Transferrin % Sat Ferritin (8-388) ng/ml Total Bilirubin (0.2-1.0) mg/dl Direct Bilirubin (0-0.2) mg/dl AST (13-39) U/L ALT (7-52) U/L Alkaline Phosphatase (34-104) U/L B-Natriuretic Peptide (0-100) pg/ml Total Protein (6.0-8.3) gm/dl Albumin (3.4-5.0) gm/dl Folate (>5.38) ng/ml CMV IgM Ab Pending CMV IgG Ab/TORCH Pending EBV Capsid Ag IgG Ab Pending EBV Capsid Ag IgM Ab Pending EBV Nuclear Antigen Ab Pending EBV Antibody Interp Pending Hepatitis A IgM Ab (NON-REACTIVE) Hep Bs Antigen (NON-REACTIVE) Hep Bs Ag Confirmation Hep B Core IgM Ab (NON-REACTIVE) Hepatitis C Ab (EIA) (NON-REACTIVE) Hep C Ab Signal/Cutoff (<1.00) 09/23/22 09/23/22 09/23/22 Range/Units 07:07 07:07 07:07 WBC 6.95 (4.8-10.8) K/ul RBC 2.69 L (4.70-6.10) M/uL Hgb 7.6 L (14.0-18.0) g/dl Hct 22.9 L (42.0-52.0) % MCV 85.1 (80.0-100.0) fL MCH 28.3 (25.0-34.0) pg MCHC 33.2 (32.0-36.0) g/dL RDW Std Deviation 54.3 H (36.4-46.3) fL RDW Coeff of Dwain 17.8 H (11.5-14.5) % Plt Count 17 L* (130-400) K/uL Absolute Nucleated RBC 0.35 H (0-0.12) K/uL Nucleated RBC % (auto) 5.0 % Neutrophils % (Manual) 60 % Lymphocytes % (Manual) 18 % Monocytes % (Manual) 10 % Eosinophils % (Manual) 2 % Basophils % (Manual) 3 % Metamyelocytes % (Man) 2 % Myelocytes % (Man) 5 % Neutrophils # (Manual) 4.17 (1.40-6.50) K/uL Total Absolute Neuts 4.17 (1.4-6.5) K/uL Lymphocytes # (Manual) 1.25 (1.2-3.4) K/uL Total Abs Lymphocytes 1.25 (1.2-3.4) K/uL Monocytes # (Manual) 0.70 H (0.11-0.59) K/uL Eosinophils # (Manual) 0.14 (0-0.50) K/uL Basophils # (Manual) 0.21 H (0-0.2) K/uL Metamyelocytes # (Man) 0.14 H (0-0) K/uL Myelocytes # (Manual) 0.35 H (0-0) K/uL Polychromasia 1+ Target Cells 1+ Tear Drop Cells 1+ Haptoglobin (43-212) mg/dL PT (9.0-12.0) Seconds INR (0.9-1.1) Sodium (136-145) mmol/L Potassium (3.5-5.1) mmol/L Chloride (98-107) mmol/L Carbon Dioxide (21-32) mmol/L Anion Gap (3-11) BUN (6-23) mg/dl Creatinine (0.6-1.4) mg/dl Est Cr Clr Drug Dosing ml/min Est GFR ( Amer) ml/min Est GFR (Non-Af Amer) ml/min BUN/Creatinine Ratio (10-20) Glucose (70-99(Fasting)) mg/dl Calcium (8.6-10.3) mg/dl Iron 118 (35-175) mcg/dl TIBC TNP Unsaturated IBC < 55 L (155-355) mcg/dl Transferrin % Sat TNP Ferritin > 7500.0 H (8-388) ng/ml Total Bilirubin 10.8 H (0.2-1.0) mg/dl Direct Bilirubin 6.3 H (0-0.2) mg/dl AST 156 H (13-39) U/L ALT 51 (7-52) U/L Alkaline Phosphatase 708 H (34-104) U/L B-Natriuretic Peptide (0-100) pg/ml Total Protein 4.4 L (6.0-8.3) gm/dl Albumin 2.4 L (3.4-5.0) gm/dl Folate 3.95 L (>5.38) ng/ml CMV IgM Ab CMV IgG Ab/TORCH EBV Capsid Ag IgG Ab EBV Capsid Ag IgM Ab EBV Nuclear Antigen Ab EBV Antibody Interp Hepatitis A IgM Ab (NON-REACTIVE) Hep Bs Antigen (NON-REACTIVE) Hep Bs Ag Confirmation Hep B Core IgM Ab (NON-REACTIVE) Hepatitis C Ab (EIA) (NON-REACTIVE) Hep C Ab Signal/Cutoff (<1.00) 09/21/22 Range/Units 23:19 WBC (4.8-10.8) K/ul RBC (4.70-6.10) M/uL Hgb (14.0-18.0) g/dl Hct (42.0-52.0) % MCV (80.0-100.0) fL MCH (25.0-34.0) pg MCHC (32.0-36.0) g/dL RDW Std Deviation (36.4-46.3) fL RDW Coeff of Dwain (11.5-14.5) % Plt Count (130-400) K/uL Absolute Nucleated RBC (0-0.12) K/uL Nucleated RBC % (auto) % Neutrophils % (Manual) % Lymphocytes % (Manual) % Monocytes % (Manual) % Eosinophils % (Manual) % Basophils % (Manual) % Metamyelocytes % (Man) % Myelocytes % (Man) % Neutrophils # (Manual) (1.40-6.50) K/uL Total Absolute Neuts (1.4-6.5) K/uL Lymphocytes # (Manual) (1.2-3.4) K/uL Total Abs Lymphocytes (1.2-3.4) K/uL Monocytes # (Manual) (0.11-0.59) K/uL Eosinophils # (Manual) (0-0.50) K/uL Basophils # (Manual) (0-0.2) K/uL Metamyelocytes # (Man) (0-0) K/uL Myelocytes # (Manual) (0-0) K/uL Polychromasia Target Cells Tear Drop Cells Haptoglobin 204 (43-212) mg/dL PT (9.0-12.0) Seconds INR (0.9-1.1) Sodium (136-145) mmol/L Potassium (3.5-5.1) mmol/L Chloride (98-107) mmol/L Carbon Dioxide (21-32) mmol/L Anion Gap (3-11) BUN (6-23) mg/dl Creatinine (0.6-1.4) mg/dl Est Cr Clr Drug Dosing ml/min Est GFR ( Amer) ml/min Est GFR (Non-Af Amer) ml/min BUN/Creatinine Ratio (10-20) Glucose (70-99(Fasting)) mg/dl Calcium (8.6-10.3) mg/dl Iron (35-175) mcg/dl TIBC Unsaturated IBC (155-355) mcg/dl Transferrin % Sat Ferritin (8-388) ng/ml Total Bilirubin (0.2-1.0) mg/dl Direct Bilirubin (0-0.2) mg/dl AST (13-39) U/L ALT (7-52) U/L Alkaline Phosphatase (34-104) U/L B-Natriuretic Peptide (0-100) pg/ml Total Protein (6.0-8.3) gm/dl Albumin (3.4-5.0) gm/dl Folate (>5.38) ng/ml CMV IgM Ab CMV IgG Ab/TORCH EBV Capsid Ag IgG Ab EBV Capsid Ag IgM Ab EBV Nuclear Antigen Ab EBV Antibody Interp Hepatitis A IgM Ab NON-REACTIVE (NON-REACTIVE) Hep Bs Antigen NON-REACTIVE (NON-REACTIVE) Hep Bs Ag Confirmation TNP Hep B Core IgM Ab NON-REACTIVE (NON-REACTIVE) Hepatitis C Ab (EIA) NON-REACTIVE (NON-REACTIVE) Hep C Ab Signal/Cutoff 0.03 (<1.00) PG Care Time/CCT Total # of Minutes Spent Total Time Spent with Patient: Total time spent is greater than 50% in coordination of care (as documented) at patient's floor/unit and/or counseling patient: Coding Level of Care Code 12853 SUB INP/OBS CARE 3/50MIN Diagnoses Abnormal LFTs R79.89 Prostate cancer metastatic to bone C61; C79.51 Hypertension I10 Anemia D64.9 Anemia type: unspecified type RAYMUNDO (acute kidney injury) N17.9 Hyponatremia E87.1 (4) Anemia Anemia type: unspecified type Qualified Code(s): D64.9 - Anemia, unspecified
--- NOTE | 2022-09-24 10:07 | Gastroenterology Progress Note ---
Date of Service September 24, 2022 Assessment & Plan (1) Abnormal LFTs: (2) Prostate cancer metastatic to bone: Plan Patient is a 72 y.o. male with elevated liver panel, jaundice, and imaging suggestive of hepatic mets versus Medication induced. -MRCP. -Await CMV/EBV serologies. -Continue supportive care. -Appreciate input from oncology. -Further recommendations pending results of imaging. Admission and Anticipated Discharge Date Admission Date: September 22, 2022 Supervising Physician Co-Signing Physician Notes Agree with AMANDA Canales as above Gen: Jaundice, Oriented x3, Cooperative Abd: Soft, NT, Distended, +BS Continue current therapy and supportive care MRCP today Subjective Patient with slightly worsened liver panel overnight as follows: TB 12.4, DB 7.1, AST 162, ALT 53, ALP 799. Acute hepatitis panel negative. CMV/EBV serologies pending. Reports fatigue. No pruritus. Dark urine. Mild RUQ discomfort. Tolerating diet although endorses mild nausea. No vomiting. No f/c. Review of Systems Constitutional: as per Subjective / HPI Gastrointestinal: as per Subjective / HPI Physical Exam Constitutional: WD/WN, vitals as above Eyes: + scleral abnormality (bilateral icterus) and EOM intact bilaterally Respiratory: normal respiratory effort, lungs clear to auscultation Cardiovascular: Rate/Rhythm: regular rate and regular rhythm Gastrointestinal (Abdomen): Inspection/Auscultation: + abdomen distended Percussion/Palpation: abdomen soft Results & Data Results & Data Vital Signs (Past 12 Hours) Vital Signs Temp Pulse Pulse Resp BP BP Pulse Ox 09/24/22 08:41 106 H 09/24/22 07:21 36.8 C 109 H 18 144/81 H 94 09/23/22 23:00 99 H 09/24/22 03:07 36.9 C 95 H 18 149/85 H 94 09/24/22 01:00 09/23/22 23:29 36.7 C 92 H 18 122/75 94 Pulse Ox O2 Del Method O2 Del Method 09/24/22 08:41 09/24/22 07:21 Room Air 09/23/22 23:00 09/24/22 03:07 Room Air 09/24/22 01:00 94 Room Air 09/23/22 23:29 Room Air Diagnostic Findings Laboratory Results WBC 7.71 K/ul (4.8-10.8) 09/24/22 06:00 RBC 2.78 M/uL (4.70-6.10) L 09/24/22 06:00 Hgb 7.9 g/dl (14.0-18.0) L 09/24/22 06:00 Hct 23.8 % (42.0-52.0) L 09/24/22 06:00 MCV 85.6 fL (80.0-100.0) 09/24/22 06:00 MCH 28.4 pg (25.0-34.0) 09/24/22 06:00 MCHC 33.2 g/dL (32.0-36.0) 09/24/22 06:00 RDW Std Deviation 55.8 fL (36.4-46.3) H 09/24/22 06:00 RDW Coeff of Dwain 18.1 % (11.5-14.5) H 09/24/22 06:00 Plt Count 13 K/uL (130-400) L* 09/24/22 06:00 MPV 9.5 fL (9.4-12.4) 09/21/22 20:30 Absolute Nucleated RBC 0.51 K/uL (0-0.12) H 09/24/22 06:00 Nucleated RBC % (auto) 6.6 % 09/24/22 06:00 Neutrophils % (Manual) 64 % 09/24/22 06:00 Lymphocytes % (Manual) 18 % 09/23/22 07:07 Monocytes % (Manual) 10 % 09/23/22 07:07 Eosinophils % (Manual) 2 % 09/23/22 07:07 Basophils % (Manual) 3 % 09/23/22 07:07 Metamyelocytes % (Man) 2 % 09/23/22 07:07 Myelocytes % (Man) 5 % 09/23/22 07:07 Neutrophils # (Manual) 4.93 K/uL (1.40-6.50) 09/24/22 06:00 Total Absolute Neuts 4.93 K/uL (1.4-6.5) 09/24/22 06:00 Lymphocytes # (Manual) 1.46 K/uL (1.2-3.4) 09/24/22 06:00 Total Abs Lymphocytes 1.46 K/uL (1.2-3.4) 09/24/22 06:00 Monocytes # (Manual) 0.77 K/uL (0.11-0.59) H 09/24/22 06:00 Eosinophils # (Manual) 0.08 K/uL (0-0.50) 09/24/22 06:00 Basophils # (Manual) 0.23 K/uL (0-0.2) H 09/24/22 06:00 Metamyelocytes # (Man) 0.23 K/uL (0-0) H 09/24/22 06:00 Myelocytes # (Manual) 0.08 K/uL (0-0) H 09/24/22 06:00 Platelet Estimate Decreased (Normal) L 09/21/22 20:30 Polychromasia 1+ 09/24/22 06:00 Hypochromasia Present 09/21/22 20:30 Target Cells 1+ 09/23/22 07:07 Tear Drop Cells 1+ 09/24/22 06:00 Peripher Smr Path Cons 09/21/22 23:19 Haptoglobin 204 mg/dL (43-212) 09/21/22 23:19 PT 13.7 Seconds (9.0-12.0) H 09/24/22 06:00 INR 1.3 (0.9-1.1) H 09/24/22 06:00 APTT 33.9 Seconds (21.0-31.0) H 09/21/22 20:30 PTT Ratio 1.2 09/21/22 20:30 Fibrinogen 316 mg/dl (184-400) 09/21/22 23:19 VBG pH 7.39 (7.36-7.41) 09/21/22 20:30 VBG pCO2 35 mmHg (38-50) L 09/21/22 20:30 VBG pO2 26 mmHg 09/21/22 20:30 VBG HCO3 21 mmol/L 09/21/22 20:30 VBG O2 Saturation < 60.0 % 09/21/22 20:30 VBG Base Excess -3.1 mEq/L 09/21/22 20:30 Sodium 131 mmol/L (136-145) L 09/24/22 06:00 Potassium 4.5 mmol/L (3.5-5.1) 09/24/22 06:00 Chloride 99 mmol/L (98-107) 09/24/22 06:00 Carbon Dioxide 21 mmol/L (21-32) 09/24/22 06:00 Anion Gap 11 (3-11) 09/24/22 06:00 BUN 26 mg/dl (6-23) H 09/24/22 06:00 Creatinine 1.53 mg/dl (0.6-1.4) H 09/24/22 06:00 Est Cr Clr Drug Dosing 43.5 ml/min 09/24/22 06:00 Est GFR ( Amer) 52.6 ml/min 09/24/22 06:00 Est GFR (Non-Af Amer) 45.4 ml/min 09/24/22 06:00 BUN/Creatinine Ratio 17.0 (10-20) 09/24/22 06:00 Glucose 76 mg/dl (70-99(Fasting)) 09/24/22 06:00 Osmolality 282 mOsm/kg (280-300) 09/21/22 20:30 Lactate 3.1 mmol/L (0.4-2.0) H* 09/22/22 06:07 Calcium 8.1 mg/dl (8.6-10.3) L 09/24/22 06:00 Phosphorus 2.4 mg/dl (2.5-4.9) L 09/21/22 23:19 Magnesium 1.9 mg/dl (1.7-2.4) 09/22/22 12:25 Iron 118 mcg/dl (35-175) 09/23/22 07:07 TIBC TNP 09/23/22 07:07 Unsaturated IBC < 55 mcg/dl (155-355) L 09/23/22 07:07 Transferrin % Sat TNP 09/23/22 07:07 Ferritin > 7500.0 ng/ml (8-388) H 09/23/22 07:07 Total Bilirubin 12.4 mg/dl (0.2-1.0) H 09/24/22 06:00 Direct Bilirubin 7.1 mg/dl (0-0.2) H 09/24/22 06:00 AST 162 U/L (13-39) H 09/24/22 06:00 ALT 53 U/L (7-52) H 09/24/22 06:00 Alkaline Phosphatase 799 U/L (34-104) H 09/24/22 06:00 Ammonia 54.0 umol/L (18-72) 09/21/22 20:30 Lactate Dehydrogenase 2050 U/L (86-244) H 09/21/22 23:19 Total Creatine Kinase 213 U/L (30-223) 09/22/22 06:03 Troponin I High Sens 16.6 pg/ml (0-20) 09/21/22 20:30 B-Natriuretic Peptide 67 pg/ml (0-100) 09/24/22 06:00 Total Protein 4.6 gm/dl (6.0-8.3) L 09/24/22 06:00 Albumin 2.5 gm/dl (3.4-5.0) L 09/24/22 06:00 Triglycerides 226 mg/dl (0-150) H 09/22/22 06:03 Cholesterol TNP 09/22/22 06:03 LDL Cholesterol, Calc TNP 09/22/22 06:03 VLDL Cholesterol, Calc 45 mg/dl (0-30) H 09/22/22 06:03 HDL Cholesterol 5 mg/dl 09/22/22 06:03 Cholesterol/HDL Ratio TNP 09/22/22 06:03 Lipase 21 U/L (11-82) 09/21/22 23:19 Vitamin B12 > 1500 pg/ml (180-914) H 09/22/22 12:25 Folate 3.95 ng/ml (>5.38) L 09/23/22 07:07 Procalcitonin 2.72 ng/ml (0-0.5) H 09/21/22 20:30 TSH 1.318 uIu/ml (0.300-4.500) 09/22/22 12:25 Cortisol AM Sample 16.01 mcg/dl (6.2-22.6) 09/23/22 07:07 Urine Color Dark Yellow 09/22/22 03:49 Urine Appearance Clear (Clear) 09/22/22 03:49 Urine pH 5.0 (4.5-7.5) 09/22/22 03:49 Ur Specific [place] 1.030 (1.000-1.030) 09/22/22 03:49 Urine Protein Trace (Negative) H 09/22/22 03:49 Urine Glucose (UA) Negative (Negative) 09/22/22 03:49 Urine Ketones Negative (Negative) 09/22/22 03:49 Urine Blood Negative (Negative) 09/22/22 03:49 Urine Nitrite Positive (Negative) A 09/22/22 03:49 Urine Bilirubin 2+ (Negative) H 09/22/22 03:49 Urine Urobilinogen Negative (Negative) 09/22/22 03:49 Ur Leukocyte Esterase Trace (Negative) H 09/22/22 03:49 Urine WBC (Auto) 1-5 /hpf (0-5) 09/22/22 03:49 Urine RBC (Auto) 0-4 /hpf (0-4) 09/22/22 03:49 U Hyaline Cast (Auto) 5-10 /lpf (0-5) H 09/22/22 03:49 U Epithel Cells (Auto) 0-5 /lpf (0-5) 09/22/22 03:49 Urine Bacteria (Auto) Negative (Negative) 09/22/22 03:49 Acetaminophen < 3 ug/ml (10-30) L 09/21/22 23:19 Anaplasma Smear See Comment 09/21/22 23:19 Babesia Smear See Comment 09/21/22 23:19 Lyme Disease IgG Ab Negative (Negative) 09/21/22 23:19 Lyme Disease IgM Ab Negative (Negative) 09/21/22 23:19 Hepatitis A IgM Ab NON-REACTIVE (NON-REACTIVE) 09/21/22 23:19 Hep Bs Antigen NON-REACTIVE (NON-REACTIVE) 09/21/22 23:19 Hep Bs Ag Confirmation TNP 09/21/22 23:19 Hep B Core IgM Ab NON-REACTIVE (NON-REACTIVE) 09/21/22 23:19 Hepatitis C Ab (EIA) NON-REACTIVE (NON-REACTIVE) 09/21/22 23:19 Hep C Ab Signal/Cutoff 0.03 (<1.00) 09/21/22 23:19 SARS-CoV-2, RNA, NAAT NEGATIVE (NEGATIVE) 09/21/22 20:35 Blood Type A Positive 09/21/22 20:30 Antibody Screen NEGATIVE 09/21/22 20:30 Impressions Chest X-Ray 09/21/22 20:17 XR chest 1V portable HISTORY: Sepsis COMPARISON: Chest 04/22/2022. FINDINGS: There are low lung volumes. The lungs are clear. No pleural effusions. No pneumothorax. The heart is normal in size. There are calcifications within the aortic knob. Diffuse osteoblastic metastatic disease again noted. IMPRESSION: 1. No acute process within the chest. 2. Diffuse osteoblastic metastatic disease again noted. ACT 112: Negative or not required by law. Electronically signed by: Corbin Brunson M.D. 09/22/2022 8:12 AM KUB X-Ray 09/21/22 20:23 KUB CLINICAL HISTORY: Constipation. FINDINGS: 2 AP supine abdominal radiographs are correlated with abdominal CT dated 04/19/2022. There is mild gaseous distention of the small bowel loops with no radiographic evidence of high-grade obstruction. No evidence of intraperitoneal free air is seen on these supine images. There are no abnormal abdominal calcifications. There is evidence of extensive/diffuse osteoblastic metastatic disease. Numerous surgical clips project over the pelvis. IMPRESSION: 1. There are gas-filled loops of small bowel with no radiographic evidence of high-grade obstruction. 2. Extensive/diffuse osteoblastic metastatic disease is again noted. Electronically signed by: Antelmo Watts M.D. 09/22/2022 8:28 AM Abdomen/Pelvis CT 09/21/22 22:37 Exam(s): CT ABDOMEN + PELVIS With Contrast IV Amt: 89 ml optiray 320 EXAM: CT Abdomen and Pelvis With Intravenous Contrast CLINICAL HISTORY: Reason for exam: jaundicce, metastatic prostate CA. TECHNIQUE: Axial computed tomography images of the abdomen and pelvis with intravenous contrast. Automated exposure control was utilized for the study. A dose lowering technique was utilized adhering to the principles of ALARA. CONTRAST: Patient received 89 ml optiray 320 of IV contrast COMPARISON: No relevant prior studies available. FINDINGS: Lung bases: Unremarkable. No mass. No consolidation. ABDOMEN: Liver: Unremarkable. No mass. Gallbladder and bile ducts: Unremarkable. No calcified stones. No ductal dilation. Pancreas: Unremarkable. No mass. No ductal dilation. Spleen: Unremarkable. No splenomegaly. Adrenals: Unremarkable. No mass. Kidneys and ureters: Unremarkable. No hydronephrosis or delayed nephrogram. Stomach and bowel: Unremarkable. No acute diverticulitis. No small bowel obstruction. No free intraperitoneal air. PELVIS: Appendix: No findings to suggest acute appendicitis. Bladder: Unremarkable. No mass. Reproductive: Prostatectomy. ABDOMEN and PELVIS: Intraperitoneal space: Abdominal ascites. No free air. Bones/joints: Diffuse osteosclerosis, consistent with diffuse osseous metastatic prostate cancer. No acute fracture. No dislocation. Soft tissues: Unremarkable. Vasculature: Diffuse, heterogeneous low attenuation throughout the liver, concerning for hepatic metastases (more likely) versus hepatic congestion (Budd-Chiari syndrome). Correlate for portal vein thrombosis. Consider hepatic ultrasound. Atherosclerotic changes of the aorta. No abdominal aortic aneurysm. Lymph nodes: Unremarkable. No enlarged lymph nodes. IMPRESSION: 1. Diffuse, heterogeneous low attenuation throughout the liver, concerning for hepatic metastases (more likely) versus hepatic congestion (Budd-Chiari syndrome). Correlate for portal vein thrombosis. Consider hepatic ultrasound. 2. Diffuse osteosclerosis, consistent with diffuse osseous metastatic prostate cancer. Electronically signed by: George Ramos MD 09/21/22 23:[address] 09/21/22 22:37 Exam(s): CT HEAD Without Contrast EXAM: CT Head Without Intravenous Contrast CLINICAL HISTORY: Reason for exam: AMS. TECHNIQUE: Axial computed tomography images of the head/brain without intravenous contrast. Automated exposure control was utilized for the study. A dose lowering technique was utilized adhering to the principles of ALARA. COMPARISON: No relevant prior studies available. FINDINGS: No acute intracranial hemorrhage. No midline shift or mass effect. The territorial thakkar-white matter differentiation is maintained throughout. Age-related cerebral volume loss. Periventricular and subcortical white matter hypoattenuation, consistent with chronic microangiopathy. The visualized orbits appear grossly unremarkable. The calvarium is intact. The visualized paranasal sinuses and mastoid air cells are grossly clear. IMPRESSION: No acute intracranial hemorrhage, midline shift, or mass effect. Electronically signed by: George Ramos MD 09/21/22 23:29 PM Portal Vein US 09/21/22 23:44 Exam(s): US LIVER EXAM: US Abdomen Limited CLINICAL HISTORY: Reason for exam: ?portal vein thrombosis?. TECHNIQUE: Real-time ultrasound of the abdomen with image documentation. COMPARISON: CT abdomen and pelvis, same day. FINDINGS/IMPRESSION: Severely heterogeneous hepatic echotexture, as noted on the concomitant abdominal CT scan. The portal vein is patent with hepatopedal flow (correct direction). Low index of suspicion for Budd-Chiari syndrome. Abdominal ascites. Electronically signed by: George Ramos MD 09/22/22 01:19 AM PG Care Time/CCT Total # of Minutes Spent Total Time Spent with Patient: Total time spent is greater than 50% in coordination of care (as documented) at patient's floor/unit and/or counseling patient: Coding Level of Care Code 00739 SUB INP/OBS CARE 3/50MIN Diagnoses Abnormal LFTs R79.89 Prostate cancer metastatic to bone C61; C79.51
--- NOTE | 2022-09-24 14:37 | Magnetic Resonance Report ---
MRCP CLINICAL HISTORY: Elevated liver panel, jaundice, RUQ pain, nausea. Prostate cancer. TECHNIQUE: Utilizing a 1.5 Batsheva magnet and dedicated coil, multiplanar, multiecho imaging of the [facility] abdomen was performed utilizing heavily T2 weighted pulsing sequences without IV contrast. COMPARISON STUDY: CT of the abdomen and pelvis September 21, 2022. FINDINGS: Small right and trace left pleural effusions are present. The liver is replaced by innumera ble hepatic masses. Index right hepatic dome lesion on axial image 6 of 33 measures 2.7 x 2.2 cm. The liver is enlarged and nodular. There is no intra or extrahepatic biliary ductal dilatation. A small amount of abdominal ascites is present. There is no pancreatic ductal dilatation. A few cystic lesion s within the pancreatic head measure up to 1.6 cm. 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 No perip ancreatic fluid is present. There is decreased T2 signal within the spleen. Bilateral adrenal nodular ity has progressed since CT of April 19, 2022. There is no hydronephrosis. Multiple enlarged perip ancreatic and juan carlos hepatis nodes are noted. Index juan carlos hepatis node on axial image 20 measures 3.9 x 1.8 cm. This adenopathy has developed since CT of April 19, 2022. Extensive skeletal metastatic disease is better depicted on prior CT. There is paravertebral soft tissue adjacent to the upper lumb ar spine shown best on axial image 2233. There is also epidural extension. This favors paravertebral/ epidural extension of tumor. Anasarca is present. Caliber of visualized small and large bowel are nor mal. IMPRESSION: 1. Innumerable hepatic masses consistent with metastatic disease. The primary tumor is not definitive ly identified. Hepatomegaly with nodular liver contour. Small amount of ascites. 2. No biliary or pancreatic ductal dilatation. 3. Pathologic juan carlos hepatis and peripancreatic lymphadenopathy. 4. Extensive skeletal metastatic disease, as shown on CT. Paravertebral/epidural extension of tumor w ithin the upper lumbar spine which results in mild central canal stenosis. There may also result in n eural foraminal narrowing, suboptimally assessed on this exam. 5. Bilateral adrenal nodularity which is nonspecific. ACT 112: Negative or not required by law. Electronically signed by: Jay Wiggins M.D. 09/24/2022 2:35 PM
--- NOTE | 2022-09-24 15:43 | Palliative Care Consultation ---
Date of Consultation September 24, 2022 Assessment & Plan (1) Pain: with metastatic prostate cancer and new hepatic lesions Not controlled Would continue prednisone for bony pain related to skeletal metastases Given limited benefit from oxycodone prior to admission and good response to IV hydromorphone, will convert to oral hydromorphone equivalent dosing He is on lactulose which will help with constipation (2) Nausea: Chronic for the last year per his report He has been on zofran which is effective on PPI for GI prophylaxis with steroid (3) Palliative care encounter: I spoke with Mr. Beltran previously during a palliative care televisit. We discussed the idea at that time of what would happen if he were no longer able to receive treatment with his pancytopenia and debility. He told me at that time that he would "put it in God's hands". He is aware of MRCP results from earlier today. He tells me that he has not really had time to think about what comes next. We talked about whether he had ever thought about dying when he was diagnosed with cancer and he told me that "they had me convinced that it was gone". He tells me that his preference would be to at home. He lives with his 15 yo grandson at home. His daughter lives nearby. He has not really had time to process the idea of cancer progression and has not been able to talk with his son and daughter about this yet. We discussed providing onging for support and symptom management if further treatment is not an option, which seems likely. Palliative care will follow. Discussed with hospitalist. History of Present Illness Reason for Consultation: goals of care Requesting Physician: VIET Montiel Attending Physician: Tra Barnett MD History of Present Illness 72 yo gentleman with prostate cancer metastatic to bone. He has pancytopenia and developed a fever after blood transfusion 10 days ago. He was being treated for UTI with bactrim and developed worsening fatigue, anorexia, abdominal distension and jaundice. He has had ongoing problems with pain and had been taking oxycodone prior to admission. He complains of aching pain in both legs that is constant and severe at times. He tells me that he had been getting only about 90 minutes of relief with oxycodone at home. He has been getting IV hydromorphone here with good relief. He has had a total of 1.5mg IV hydromorphone (30mg OME) in last 24 hours. He has markedly elevated liver enzymes and RAYMUNDO with creatinine of 1.53. MRCP shows innumerable hepatic lesions consistent with metastatic disease as well as juan carlos hepatis and peripancreatic lymphadenopathy. Previously known extensive skeletal metastatic disease was also mentioned. Allergies Allergy/AdvReac Type Severity Reaction Status Date / Time No Known Allergies Allergy Verified 09/15/22 09:38 Home Medications Medication Instructions Recorded Confirmed Type ondansetron HCl 8 mg tablet 8 mg PO Q8H PRN Nausea 06/06/19 09/21/22 History pantoprazole 40 mg tablet,delayed 40 mg PO DAILY 07/03/20 09/21/22 History release aspirin 81 mg capsule 81 mg PO DAILY 03/12/22 09/21/22 History oxycodone 10 mg tablet 10 mg PO Q4 PRN mod to severe pain 09/21/22 09/21/22 History prednisone 10 mg tablet 10 mg PO DAILY 09/21/22 09/21/22 History Patient History Medical History Hypertension Prostate cancer metastatic to bone Syncope Surgical History S/P prostatectomy Family History Other No pertinent family history Social History Smoking Status: Unknown if ever smoked Tobacco Type: Cigarettes Hx Alcohol Use: No Hx Substance Use: No Preferred Language: Slovenian Communication Ability: Effective Visual Impairment: No Limitations Hearing Ability: Normal [employer] Required: No Beliefs That Will Affect Care: None marital status: / Current Living Situation: Family Current Living Situation Comment: lives with grandson current occupational status: retired Other Information That Helps Us Care for You: No Feels Safe at Home: Yes Safety Concerns: Feels Safe At This Time Assistive Devices: Walker Review of Systems Review of Systems: ESAS Pain 1/3 currently, 3/3 at worst Dyspnea 0/3 Nausea 1/3 Drowsiness 0/3 Physical Exam Constitutional: + ill appearing Eyes: scleral icterus Respiratory: normal respiratory effort; no labored breathing Skin: + jaundice Neurologic: Speech / Cognition: normal cognition Psychiatric: Orientation: oriented x 3 Genitourinary: continent Results & Data Vital Signs (Past 12 Hours) Vital Signs Temp Pulse Pulse Resp BP BP Pulse Ox 09/24/22 11:19 98.4 F 109 H 20 114/65 92 09/24/22 11:40 09/24/22 08:41 106 H 09/24/22 07:21 98.2 F 109 H 18 144/81 H 94 O2 Del Method 09/24/22 11:19 Room Air 09/24/22 11:40 Room Air 09/24/22 08:41 09/24/22 07:21 Room Air PG Care Time/CCT Total # of Minutes Spent Total Time Spent with Patient: Total time spent is greater than 50% in coordination of care (as documented) at patient's floor/unit and/or counseling patient: Coding Level of Care Code 60829 INT INP/OBS CARE 3/75MIN Medical Decision Making High Complexity Diagnoses Pain R52 Nausea R11.0 Palliative care encounter Z51.5
--- NOTE | 2022-09-24 16:13 | Communication Note ---
Date of Service: September 24, 2022 Updated patient of MRCP findings as well as Dr Hall. Patient stated goals are time w/ family and his grandson who visited earlier today. Attempted to contact daughter for update but went to voicemail. Son to visit this evening and called and updated of imaging/findings and that Dr Hall will be in contact with him tonight for further discussion but that given his clinical picture, minimal to offer other than palliative/symptom control. Son agreed home best but inquired if we were kicking his dad out. Discussed will need further discussions/goals of care discussion/hospice agency in place but would like to start these discussions given continued decline on labs/findings on imaging to allow patient best quality w/ time with family that we may be able to arrange and set this up for Tuesday vs Tuesday pending continued discussions. CM to follow -- theresa Pinzon this afternoon regarding possible need [place] hosp[place] options for patient. Discussed with Dr Robb, who will eval this evening. Discussed switching to decadron for judah pain and ordering PO Oxycodone in anticipation for control at home. She will eval/order medications following eval and we will continue to monitor response.
[2022-09-24 18:42] LABS: Appearance Urine Turbid (Clear); Bacteria Urine Automated Negative (Negative); Blood Urine Negative (Negative); Color Urine Dark Yellow; Glucose Urine UA Negative (Negative); Ketones Urine Negative (Negative); Leukocyte Esterase Urine 1+ (Negative); Nitrite Urine Positive (Negative); Protein Urine 1+ (Negative); Specific Gravity Urine 1.023 (1.000-1.030); Urobilinogen Urine Negative (Negative)
[2022-09-24 18:44] LABS: Bilirubin Urine 3+ (Negative)
[2022-09-24] MEDS: cefTRIAXone SODIUM 2,000 MG in DEXTROSE 5% 50 ML IV SCH (19:35)
[2022-09-25 07:07] LABS: Hematocrit (blood only) 25.2 % (42.0-52.0); Hemoglobin 8.1 g/dl (14.0-18.0); Mean Corpuscular Hemoglobin 28.1 pg (25.0-34.0); Mean Corpuscular Hgb Conc 32.1 g/dL (32.0-36.0); Mean Corpuscular Volume 87.5 fL (80.0-100.0); Nucleated RBC # (auto) 0.91 K/uL (0-0.12); Nucleated RBC % (auto) 10.7 %; Platelet Count 12 K/uL (130-400); RDW Coefficient of Variation 18.3 % (11.5-14.5); RDW Standard Deviation 57.7 fL (36.4-46.3); Red Blood Count 2.88 M/uL (4.70-6.10)
[2022-09-25 07:27] LABS: Albumin Globulin Ratio 1.2 (0.9-2); Albumin Level 2.5 gm/dl (3.4-5.0); BUN Creatinine Ratio 22.3 (10-20); Bilirubin,Total 13.8 mg/dl (0.2-1.0); Calcium 8.4 mg/dl (8.6-10.3); Creatinine Clr Calc Pharmacy 40.1 ml/min; Est GFR (African American) 47.7 ml/min; Est GFR (Non-African American) 41.1 ml/min; Globulin 2.1 gm/dl (2.5-4.0); Magnesium 2.2 mg/dl (1.7-2.4); Potassium 5.5 mmol/L (3.5-5.1); Total Protein 4.6 gm/dl (6.0-8.3)
[2022-09-25 07:29] LABS: ALC (manual) 1.28 K/uL (1.2-3.4); ANC (manual) 5.36 K/uL (1.4-6.5); Basophils # (manual) 0.26 K/uL (0-0.2); Basophils % (manual) 3 %; Eosinophils # (manual) 0.34 K/uL (0-0.50); Eosinophils % (manual) 4 %; Lymphocytes # (manual) 1.28 K/uL (1.2-3.4); Lymphocytes % (manual) 15 %; Metamyelocytes # (manual) 0.68 K/uL (0-0); Metamyelocytes % (manual) 8 %; Monocytes # (manual) 0.43 K/uL (0.11-0.59); Monocytes % (manual) 5 %; Myelocytes # (manual) 0.26 K/uL (0-0); Myelocytes % (manual) 3 %; Neutrophils # (manual) 5.36 K/uL (1.40-6.50); Neutrophils % (manual) 63 %; Polychromasia 1+; Tear Drop Cells 2+
[2022-09-25 07:35] LABS: INR 1.5 (0.9-1.1); Prothrombin Time 16.1 Seconds (9.0-12.0)
[2022-09-25] MEDS: ONDANSETRON INJ 2 MG/ML 2 ML VIAL IV PRN ×3 (07:54→19:56)
[2022-09-25] MEDS ORDERED: HYDROmorphone HCL 2 MG TAB PO PRN (07:57)
--- NOTE | 2022-09-25 08:00 | Hospitalist Progress Note ---
Date of Service September 25, 2022 Assessment & Plan (1) Abnormal LFTs: Plan: 72yo male with history of metastatic prostate cancer presenting to [facility] with laboratory evidence suggestive of acute liver failure, was recently rx Bactrim for suspected UTI Suspected metastatic liver cancer causing acute liver failure in patient w/ known prostate ca/bony mets US Doppler negative for PVT Not feeling well 1-2 days, jaundice/icterus/abdominal bloating (noting no BM x 2 weeks reported to me -- improving and continued BMs w/ lactulose 20mg BID and can titrate as needed) GI, heme/onc on consult Procal 2.72, blod cultures remaining NGTD, no fevers Lyme/tick bourne testing negative, PCR pending. Hepatitis panel unremarkable. CMV/EBV ordered, but discussed w/ GI 5/5 given worsened LFTs (and continued worsening)/concerns for malignancy and MRCP ordered MRCP resulted w/ Innumerable hepatic masses consistent with metastatic disease. The primary tumor is not definitively identified. Hepatomegaly with nodular liver contour. Small amount of ascites. Extensive skeletal metastatic disease, as shown on CT. Paravertebral/epidural extension of tumor within the upper lumbar spine which results in mild central canal stenosis. There may also result in neural foraminal narrowing, suboptimally assessed on this exam. Discussed w/ Dr Hall and patient/son last evening, moving to palliation. Palliative consulted Remains on prednisone, can consider using some decadron if needed for additional pain control but ordered dilaudid 2mg PO q4h prn for pain to see if able to control on orals for at discharge. Confirmed with patient , grandson at bedside today, DNR status.Does want to ideally get home and be with family. notified for continued discussions/referral to hospice agency when son comes to visit today/further discussions but Jeromy from will be contacting him for discussion as well Patient remains on IV ceftriaxone however suspect could be discontinued Focusing on symptom control at present and hopefully will be able to get him home this upcoming week. No need/benefit from paracentesis given blood counts/platelets, not at transfusion threshold at present/no bleeding reported Worsening LFTs w/ TB 13.8, AST 248, ALT 65, ALP 837, also w/ RAYMUNDO although intake ok (not as good as yesterday) but avoiding further IVF to prevent overload given ascites on exam Continued inpatient stay (2) Prostate cancer metastatic to bone: Plan: Noted. Concern for hepatic involvement now. Patient had been on Oxycodone PRN/prednisone 10mg daily but reported oxycodone not effective for pain control Dilaudid ordered -- IV available if unable to take PO but discussed trialing this for options for pain control at home Heme/oncology consulted -- updated son last evening for discussion. No chemo to be offered. Palliative consulted as above given MRCP results c/w metastatic disease PSA elevated 469 If still inpatient Tuesday, heme/onc for reeval. working on hospice for dc, son w/ further discussions today and I did speak with him last evening (09/24) as well (3) Hypertension: Plan: Daughter reports lower blood pressures at home over the last several days --? how low --? shock liver. No granular casts on UA however, and now w/ imaging c/w met disease Continue prednisone 10mg daily HRs improved since starting metoprolol --> continuing on 12.5mg BID. Rx at d/c to prevent significant tachycardia. No hypoxia to suggest PE but would not be able to anticoagulate given above/blood counts BP 135/75 and improved from borderline hypotension now that HRs better controlled (4) Anemia: Plan: hgb appears around baseline. likely worsening due to progression of met disease. recent transfusion last week at [facility] B12 wnl, folate LOW -- replacement ordered Hgb stable 8.1 from 7.9 and no bleeding reported plt not <10k for transfusion at present Monitor (5) RAYMUNDO (acute kidney injury): Plan: on admit, BUN/Cr elevated to 31/1.9 IVF x 1 L on admit, BUN/Cr improved to 27/1.59 Checked CK -- as above Possible recent UTI but do not have culture data. Repeat UA Additional IVF provided overnight but holding any further Eating/drinking , making urine. No significant PVR but will need to monitor Avoid nephrotoxins/renal dose meds as able BMP in AM (6) Hyponatremia: Plan: Na 129 on admit, 130 on repeat Stable at 130 --> 131 --> 132 TSH wnl AScites/overload slightly. can consider giving additional dose of lasix but w/ poor PO intake would like to avoid worsening dehydration/kidney function given Cr elevated to 1.66 today. ?TLS Likely now from slightly volume overloaded state and will avoid additional IVF at present and encourage oral intake Monitor in AM/consider urine studies Poor PO intake prior to admission but reported improving today since moving his bowels and more increased appetite 5/5 reported (7) Metastasis to liver: (8) Hyperkalemia: Plan: 2nd to progressive disease as above/worsening renal function encouraged PO intake dose valtessa x 1 this morning monitoring on tele, no arrhythmia. No CP reported Monitor BMP in AM Plan continued inpatient stay MRCP for further eval Admission and Anticipated Discharge Date Admission Date: September 22, 2022 Supervising Physician Co-Signing Physician Notes The patient was not seen by me. The chart was reviewed. Case discussed with LU Montiel. Agree with assessment and plan Subjective eval this morning around lunch, grandson at bedside, patient enjoying the company and lauging. did have some nausea, improving w/ zofran but discussed if needed can order some phenergan. Discussed oral dilaudid for pain control to see if effective to be able to use at discharge. states moving his bowels with lactulose and continued. discussed w/ grandson to monitor for bowel movements at home and can increase as needed to ensure still moving/prevention of confusion confirmed DNR status at this time. no chest pain/shortness of breath reported questions/concerns addressed at this time Physical Exam Physical Exam: General: WD/WN male, chronically ill appearing male sitting in hospital bed, significant jaundiced appearance (worse), grandson at bedside HEENT: +bilateral icterus, mm slightly dry but improving, HARD of hearing Resp: diminished in the bases, poor effort, no w/c, on room air 94% CV: regular rhythm, rates 90-low 100s, no significant m/r/g, 1-2+ b/l LE edema but calves nontender GI: +BS throughout, DISTENDED (slightly less distension), LESS tense, softer but still with ascites, no significant tenderness but does have some RUQ tenderness, no guarding/rebound : no gu MSK/Neuro: no focal deficits, no slurred speech Psych: AO to person/place, states he does know he gets confused with the date from time to time Results & Data Results & Data Vital Signs (Past 12 Hours) Vital Signs Temp Pulse Pulse Resp BP Pulse Ox O2 Del Method 09/25/22 01:00 09/24/22 23:36 36.5 C 95 H 16 110/72 94 Room Air 09/25/22 00:48 92 H O2 Del Method 09/25/22 01:00 Room Air 09/24/22 23:36 09/25/22 00:48 Laboratory Results 09/25/22 09/25/22 09/25/22 Range/Units 06:21 06:21 06:21 WBC 8.50 (4.8-10.8) K/ul RBC 2.88 L (4.70-6.10) M/uL Hgb 8.1 L (14.0-18.0) g/dl Hct 25.2 L (42.0-52.0) % MCV 87.5 (80.0-100.0) fL MCH 28.1 (25.0-34.0) pg MCHC 32.1 (32.0-36.0) g/dL RDW Std Deviation 57.7 H (36.4-46.3) fL RDW Coeff of Dwain 18.3 H (11.5-14.5) % Plt Count 12 L* (130-400) K/uL Absolute Nucleated RBC 0.91 H (0-0.12) K/uL Nucleated RBC % (auto) 10.7 % Neutrophils % (Manual) 63 % Lymphocytes % (Manual) 15 % Monocytes % (Manual) 5 % Eosinophils % (Manual) 4 % Basophils % (Manual) 3 % Metamyelocytes % (Man) 8 % Myelocytes % (Man) 3 % Neutrophils # (Manual) 5.36 (1.40-6.50) K/uL Total Absolute Neuts 5.36 (1.4-6.5) K/uL Lymphocytes # (Manual) 1.28 (1.2-3.4) K/uL Total Abs Lymphocytes 1.28 (1.2-3.4) K/uL Monocytes # (Manual) 0.43 (0.11-0.59) K/uL Eosinophils # (Manual) 0.34 (0-0.50) K/uL Basophils # (Manual) 0.26 H (0-0.2) K/uL Metamyelocytes # (Man) 0.68 H (0-0) K/uL Myelocytes # (Manual) 0.26 H (0-0) K/uL Polychromasia 1+ Tear Drop Cells 2+ PT 16.1 H (9.0-12.0) Seconds INR 1.5 H (0.9-1.1) Sodium 132 L (136-145) mmol/L Potassium 5.5 H D (3.5-5.1) mmol/L Chloride 98 (98-107) mmol/L Carbon Dioxide 18 L (21-32) mmol/L Anion Gap 16 H (3-11) BUN 37 H (6-23) mg/dl Creatinine 1.66 H (0.6-1.4) mg/dl Est Cr Clr Drug Dosing 40.1 ml/min Est GFR ( Amer) 47.7 ml/min Est GFR (Non-Af Amer) 41.1 ml/min BUN/Creatinine Ratio 22.3 H (10-20) Glucose 57 L (70-99(Fasting)) mg/dl Calcium 8.4 L (8.6-10.3) mg/dl Magnesium 2.2 (1.7-2.4) mg/dl Total Bilirubin 13.8 H (0.2-1.0) mg/dl AST 248 H (13-39) U/L ALT 65 H (7-52) U/L Alkaline Phosphatase 837 H (34-104) U/L Total Creatine Kinase (30-223) U/L Total Protein 4.6 L (6.0-8.3) gm/dl Albumin 2.5 L (3.4-5.0) gm/dl Globulin 2.1 L (2.5-4.0) gm/dl Albumin/Globulin Ratio 1.2 (0.9-2) Urine Color Urine Appearance (Clear) Urine pH (4.5-7.5) Ur Specific [place] (1.000-1.030) Urine Protein (Negative) Urine Glucose (UA) (Negative) Urine Ketones (Negative) Urine Blood (Negative) Urine Nitrite (Negative) Urine Bilirubin (Negative) Urine Urobilinogen (Negative) Ur Leukocyte Esterase (Negative) Urine WBC (Auto) (0-5) /hpf Urine RBC (Auto) (0-4) /hpf U Hyaline Cast (Auto) (0-5) /lpf U Epithel Cells (Auto) (0-5) /lpf Urine Bacteria (Auto) (Negative) 05/05/23 05/05/23 Range/Units Unknown 06:00 WBC (4.8-10.8) K/ul RBC (4.70-6.10) M/uL Hgb (14.0-18.0) g/dl Hct (42.0-52.0) % MCV (80.0-100.0) fL MCH (25.0-34.0) pg MCHC (32.0-36.0) g/dL RDW Std Deviation (36.4-46.3) fL RDW Coeff of Dwain (11.5-14.5) % Plt Count (130-400) K/uL Absolute Nucleated RBC (0-0.12) K/uL Nucleated RBC % (auto) % Neutrophils % (Manual) % Lymphocytes % (Manual) % Monocytes % (Manual) % Eosinophils % (Manual) % Basophils % (Manual) % Metamyelocytes % (Man) % Myelocytes % (Man) % Neutrophils # (Manual) (1.40-6.50) K/uL Total Absolute Neuts (1.4-6.5) K/uL Lymphocytes # (Manual) (1.2-3.4) K/uL Total Abs Lymphocytes (1.2-3.4) K/uL Monocytes # (Manual) (0.11-0.59) K/uL Eosinophils # (Manual) (0-0.50) K/uL Basophils # (Manual) (0-0.2) K/uL Metamyelocytes # (Man) (0-0) K/uL Myelocytes # (Manual) (0-0) K/uL Polychromasia Tear Drop Cells PT (9.0-12.0) Seconds INR (0.9-1.1) Sodium (136-145) mmol/L Potassium (3.5-5.1) mmol/L Chloride (98-107) mmol/L Carbon Dioxide (21-32) mmol/L Anion Gap (3-11) BUN (6-23) mg/dl Creatinine (0.6-1.4) mg/dl Est Cr Clr Drug Dosing ml/min Est GFR ( Amer) ml/min Est GFR (Non-Af Amer) ml/min BUN/Creatinine Ratio (10-20) Glucose (70-99(Fasting)) mg/dl Calcium (8.6-10.3) mg/dl Magnesium (1.7-2.4) mg/dl Total Bilirubin (0.2-1.0) mg/dl AST (13-39) U/L ALT (7-52) U/L Alkaline Phosphatase (34-104) U/L Total Creatine Kinase 142 (30-223) U/L Total Protein (6.0-8.3) gm/dl Albumin (3.4-5.0) gm/dl Globulin (2.5-4.0) gm/dl Albumin/Globulin Ratio (0.9-2) Urine Color Dark Yellow Urine Appearance Turbid A (Clear) Urine pH 5.0 (4.5-7.5) Ur Specific [place] 1.023 (1.000-1.030) Urine Protein 1+ H (Negative) Urine Glucose (UA) Negative (Negative) Urine Ketones Negative (Negative) Urine Blood Negative (Negative) Urine Nitrite Positive A (Negative) Urine Bilirubin 3+ H (Negative) Urine Urobilinogen Negative (Negative) Ur Leukocyte Esterase 1+ H (Negative) Urine WBC (Auto) 1-5 (0-5) /hpf Urine RBC (Auto) 5-10 H (0-4) /hpf U Hyaline Cast (Auto) 5-10 H (0-5) /lpf U Epithel Cells (Auto) 5-10 H (0-5) /lpf Urine Bacteria (Auto) Negative (Negative) Diagnostic Findings Cholangiopancreatography MRI 09/24/22 09:04 MRCP CLINICAL HISTORY: Elevated liver panel, jaundice, RUQ pain, nausea. Prostate cancer. TECHNIQUE: Utilizing a 1.5 Batsheva magnet and dedicated coil, multiplanar, multiecho imaging of the upper abdomen was performed utilizing heavily T2 weighted pulsing sequences without IV contrast. COMPARISON STUDY: CT of the abdomen and pelvis September 21, 2022. FINDINGS: Small right and trace left pleural effusions are present. The liver is replaced by innumerable hepatic masses. Index right hepatic dome lesion on axial image 6 of 33 measures 2.7 x 2.2 cm. The liver is enlarged and nodular. There is no intra or extrahepatic biliary ductal dilatation. A small amount of abdominal ascites is present. There is no pancreatic ductal dilatation. A few cystic lesions within the pancreatic head measure up to 1.6 cm. 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 No peripancreatic fluid is present. There is decreased T2 signal within the spleen. Bilateral adrenal nodularity has progressed since CT of April 19, 2022. There is no hydronephrosis. Multiple enlarged peripancreatic and juan carlos hepatis nodes are noted. Index juan carlos hepatis node on axial image 20 measures 3.9 x 1.8 cm. This adenopathy has developed since CT of April 19, 2022. Extensive skeletal metastatic disease is better depicted on prior CT. There is paravertebral soft tissue adjacent to the upper lumbar spine shown best on axial image 2233. There is also epidural extension. This favors paravertebral/epidural extension of tumor. Anasarca is present. Caliber of visualized small and large bowel are normal. IMPRESSION: 1. Innumerable hepatic masses consistent with metastatic disease. The primary tumor is not definitively identified. Hepatomegaly with nodular liver contour. Small amount of ascites. 2. No biliary or pancreatic ductal dilatation. 3. Pathologic juan carlos hepatis and peripancreatic lymphadenopathy. 4. Extensive skeletal metastatic disease, as shown on CT. Paravertebral/epidural extension of tumor within the upper lumbar spine which results in mild central canal stenosis. There may also result in neural foraminal narrowing, suboptimally assessed on this exam. 5. Bilateral adrenal nodularity which is nonspecific. ACT 112: Negative or not required by law. Electronically signed by: Jay Wiggins M.D. 09/24/2022 2:35 PM PG Care Time/CCT Total # of Minutes Spent Total Time Spent with Patient: Total time spent is greater than 50% in coordination of care (as documented) at patient's floor/unit and/or counseling patient: Coding Level of Care Code 80886 SUB INP/OBS CARE 3/50MIN Diagnoses Abnormal LFTs R79.89 Prostate cancer metastatic to bone C61; C79.51 Hypertension I10 Anemia D64.9 Anemia type: unspecified type RAYMUNDO (acute kidney injury) N17.9 Hyponatremia E87.1 Metastasis to liver C78.7 Hyperkalemia E87.5 (4) Anemia Anemia type: unspecified type Qualified Code(s): D64.9 - Anemia, unspecified
[2022-09-25] MEDS ORDERED: SODIUM CHLORIDE 0.9% 500 ML IV SCH (08:15)
--- NOTE | 2022-09-25 09:26 | Hospitalist Progress Note ---
Date of Service September 25, 2022 Assessment & Plan (1) Metastasis to liver: Plan: While I had certainly hope that we were seeing a transient nonmalignant cause for the changes in his liver as per previous notes, unfortunately the MRI scan fairly unequivocally demonstrates a pattern of hepatic metastasis with that concept further reinforced by the apparent presence of pathologic juan carlos hepatis adenopathy. This is in conjunction with persistent widespread bony metastatic changes. See prostate cancer discussion for details (2) Prostate cancer metastatic to bone: Plan: As per previous, longstanding prostate cancer which has been persistent/progressive despite previous combined hormonal therapy and successive treatment with 2 rounds of docetaxel regimens and more recently cabazitaxel. Up until most recently, identifiable metastatic disease has been largely confined to his skeleton but with pancytopenia there had been concern as to whether that represented widespread marrow involvement with the metastatic prostate cancer versus MDS/aplastic changes induced by his multiple previous chemotherapies. While there had been no suggestion of liver dysfunction on July 30, 2022 labs, there was rapid evolution of laboratory abnormalities and radiologic changes somewhat atypical for prostate cancer with the hope that perhaps we were seeing a transient toxic effect of recent Bactrim or recent infe ction. Now with the MRI scan more consistently showing discrete hepatic masses and the persistent abnormalities of his liver enzymes, the conclusion metastatic cancer to liver becomes somewhat inescapable. We cannot exclude the possibility of a separate malignancy though that is less likely as compared to the prostate cancer behaving more aggressively and atypically. We also cannot exclude the possibility of a transition to a more aggressive neuroendocrine subset of prostate cancer clone cells responsible for this visceral metastatic presentation. Practically, however, his pancytopenia and significant liver function changes preclude any further cytotoxic intervention. Even without those changes, the process in the liver seems quite aggressive with the very real possibility of multidrug resistance given its occurrence after 3 separate cytotoxic regimens and in that context the level of cytotoxic treatment needed to make any impact on that might be excessive even without the concerns of liver dysfunction and cytopenias. Practically, a purely supportive care approach will not only preserve short-term quality of life which is at least stabilizing somewhat acutely but ironically w ill statistically more likely maximize his quantity of life by avoiding life shortening complications of chemotherapy given in anything more than minimal doses. We have been unable to technically obtain a marrow sample to further assess for the presence of cancer within the marrow. While we might technically be able to approach a liver biopsy to confirm our suspicions there, a negative finding w ould have to be concerning for sampling error and a positive finding of either prostate cancer or another malignancy would not lead to any practical changes in management. We can certainly "leave the door open" for reassessment should there be an unexpected improvement in his liver function and I will be delighted to continue conversation with the patient and his family about how to best approach care ongoing. I spoke at length with his son Romero today ([phone]) outlining the above and the reasons to indicate that no more than supportive therapy can be offered at this time given the above framework. I will make tentative arrangements to see him in my office later this week ( at 12noon) and if he remains hospitalized on Tuesday when I return, I have indicated to Romero that I will be happy to have a family meeting that evening in his hospital room. Plan See detailed discussion above Supportive care only, if patient quickly stabilizes could be discharged with outpatient follow-up. Palliative care consultation inpatient or outpatient Liver biopsy would not offer practical changes in management and can probably be deferred I will meet with the patient either in his hospital room on Tuesday evening if he remains inpatient and/or as an outpatient next at 12 noon in the [facility] offices Have reviewed the situation at length with his son Romero If there are unexpected improvements in his situation would be happy to reassess recommendations Admission and Anticipated Discharge Date Admission Date: September 22, 2022 Subjective I am working remotely today but did see and examine the patient on 09/23/2022 at which time he seemed overall stable. Physical Exam Physical Exam: Patient was still jaundiced but otherwise relatively stable by exam on 09/23/2022. Current vital signs are stable Results & Data Results & Data Vital Signs (Past 12 Hours) Vital Signs Temp Pulse Pulse Resp BP Pulse Ox O2 Del Method 09/25/22 08:00 Room Air 09/25/22 08:00 37.0 C 89 18 115/68 97 Room Air 09/25/22 01:00 09/24/22 23:36 36.5 C 95 H 16 110/72 94 Room Air 09/25/22 00:48 92 H O2 Del Method 09/25/22 08:00 09/25/22 08:00 09/25/22 01:00 Room Air 09/24/22 23:36 09/25/22 00:48 PG Care Time/CCT Total # of Minutes Spent Total Time Spent with Patient: Total time spent is greater than 50% in coordination of care (as documented) at patient's floor/unit and/or counseling patient: Coding Level of Care Code 82165 SUB INP/OBS CARE 06/16MIN Diagnoses Metastasis to liver C78.7 Prostate cancer metastatic to bone C61; C79.51
[2022-09-25] MEDS: HYDROmorphone INJ 0.5 MG/0.5 ML SYR IV PRN ×2 (09:52→19:57)
[2022-09-25] MEDS ORDERED: PATIROMER CALCIUM SORBITEX 8.4 GM PACK PO ONE (11:00)
[2022-09-25] MEDS: PANTOprazole 40 MG TAB PO SCH ×2 (11:49→21:59)
[2022-09-25] MEDS: THIAMINE HCL 100 MG TAB PO SCH ×2 (11:49→22:00)
[2022-09-25] MEDS: predniSONE 10 MG TABLET PO SCH (11:50)
[2022-09-25] MEDS: METOPROLOL TARTRATE 25 MG TAB PO SCH ×2 (11:50→22:20)
[2022-09-25] MEDS: FOLIC ACID 1 MG TAB PO SCH (11:50)
[2022-09-25] MEDS: LACTULOSE SYRUP 20 GM/30 ML UDC PO SCH ×2 (13:00→22:00)
[2022-09-25] MEDS ORDERED: PROMETHAZINE HCL 6.25 MG in SODIUM CHLORIDE 0.9% 50 ML IV PRN (15:17)
[2022-09-25] MEDS ORDERED: PROMETHAZINE HCL 12.5 MG in SODIUM CHLORIDE 0.9% 50 ML IV PRN (18:07)
[2022-09-25] MEDS ORDERED: HYDROmorphone INJ 0.5 MG/0.5 ML SYR IV PRN (19:29)
[2022-09-25] MEDS ORDERED: LORazepam 2 MG/1 ML VIAL IV PRN (19:29)
[2022-09-25] MEDS: cefTRIAXone SODIUM 2,000 MG in DEXTROSE 5% 50 ML IV SCH (20:00)
[2022-09-25 20:09] LABS: Hematocrit (blood only) 28.4 % (42.0-52.0); Hemoglobin 8.7 g/dl (14.0-18.0); Mean Corpuscular Hemoglobin 28.4 pg (25.0-34.0); Mean Corpuscular Hgb Conc 30.6 g/dL (32.0-36.0); Mean Corpuscular Volume 92.8 fL (80.0-100.0); Nucleated RBC % (auto) 9.4 %; Platelet Count 14 K/uL (130-400); RDW Coefficient of Variation 19.2 % (11.5-14.5); RDW Standard Deviation 64.1 fL (36.4-46.3); Red Blood Count 3.06 M/uL (4.70-6.10); White Blood Count 11.71 K/ul (4.8-10.8)
[2022-09-25 20:12] LABS: ALC (manual) 2.69 K/uL (1.2-3.4); ANC (manual) 7.03 K/uL (1.4-6.5); Basophils # (manual) 0.35 K/uL (0-0.2); Basophils % (manual) 3 %; Eosinophils # (manual) 0.12 K/uL (0-0.50); Eosinophils % (manual) 1 %; Lymphocytes # (manual) 2.69 K/uL (1.2-3.4); Lymphocytes % (manual) 23 %; Metamyelocytes # (manual) 0.59 K/uL (0-0); Metamyelocytes % (manual) 5 %; Monocytes # (manual) 0.12 K/uL (0.11-0.59); Monocytes % (manual) 1 %; Myelocytes # (manual) 0.94 K/uL (0-0); Myelocytes % (manual) 8 %; Neutrophils # (manual) 7.03 K/uL (1.40-6.50); Neutrophils % (manual) 60 %; Platelet Estimate Signific. Decreased (Normal); Polychromasia 1+; Tear Drop Cells 1+
[2022-09-25 20:21] LABS: Albumin Globulin Ratio 1.2 (0.9-2); Albumin Level 2.7 gm/dl (3.4-5.0); BUN Creatinine Ratio 24.7 (10-20); Bilirubin,Total 16.1 mg/dl (0.2-1.0); Calcium 9.2 mg/dl (8.6-10.3); Creatinine Clr Calc Pharmacy 35.8 ml/min; Est GFR (African American) 41.6 ml/min; Est GFR (Non-African American) 35.9 ml/min; Globulin 2.3 gm/dl (2.5-4.0); Potassium 6.8 mmol/L (3.5-5.1)
[2022-09-25] MEDS ORDERED: SODIUM BICARB 8.4% INJ 50 MEQ/50 ML SYR IV STA ×3 (20:23→21:43)
[2022-09-25] MEDS ORDERED: DEXTROSE 50% 50 ML SYRINGE IV ONE (20:23)
[2022-09-25] MEDS ORDERED: CALCIUM GLUCONATE 10% 1,000 MG in DEXTROSE 5% 50 ML IV ONE (20:23)
[2022-09-25] MEDS ORDERED: STAT IV STA ×2 (20:23→21:31)
[2022-09-25] MEDS ORDERED: SODIUM CHLORIDE 0.9% 1000ML 500 ML IV ONE (20:34)
[2022-09-25] MEDS ORDERED: NOREPINEPHRINE/D5W 4 MG/250 ML IV ONE (21:02)
[2022-09-25] MEDS ORDERED: STAT IV Infusion **Titration per Protocol STA (21:04)
[2022-09-25] MEDS ORDERED: RAPID SEQUENCE INDUCTION BAG ONE (21:12)
[2022-09-25] MEDS ORDERED: HYDROCORTISONE SOD 100 MG in SYRINGE 0 ML IV STA (21:34)
[2022-09-25] MEDS ORDERED: PIPERACILLIN/TAZOBACTAM 4.5 GM in DEXTROSE 5% 100 ML IV ONE (21:34)
[2022-09-25 21:41] LABS: Base Excess VBG -21.2 mEq/L; HCO3 VBG 8 mmol/L; Oxygen Saturation VBG 82.4 %; PCO2 VBG 28 mmHg (38-50); PO2 VBG 60 mmHg; pH VBG 7.06 (7.36-7.41)
--- NOTE | 2022-09-25 21:48 | Communication Note ---
Date of Service: September 25, 2022 Jayesh Deras called to room 236 at 19:06 Patient went to the bathroom then became unresponsive. Found on the toilet, responsive only to sternal rub. He was transferred to the bed. On initial assessment: BP 70/30, HR 100's regular, RR 30 and agonal, saturations 94% on 10L Oxymask Patient pale, diaphoretic, not responding to voice or noxious stimuli Heart - +S1/S2, regular, tachycardic Lungs - CTA anteriorly, no rales/rhonchi/wheezes Abd - distended, firm to palpation Ext - cool, 2+ edema, femoral pulse palpable 500mL NSS administered Patient placed on supplemental O2 via NRB CMP and CBC ordered Per chart review, patient was made DNR earlier today 09/25/22 and was planning to go home with Hospice services on Tuesday. Decision initially made to avoid aggressive therapies and administer medications to keep the patient comfortable until the labs resulted. Patient's son (Romero Cobb) and daughter (Saray Cobb) at bedside. Shortly after, family informed nursing that they were not involved in the DNR discussions that took place earlier in the day and were not in agreement with the DNR status. Patient had initially voiced the desire for FULL CODE upon admission and the family would like him to remain FULL CODE at this time. Family did voice concern that patient is hard of hearing and may not have had decision making capacity. Discussed with family that patient's prognosis is grave given his history of metastatic prostate cancer with multiple organ failure and his current clinical decompensation. Decision made to reverse DNR status and to pursue aggressive management. Labs resulted: Increasing WBC=11.71 from 8.5 earlier in the day Stable normochromic/normocytic anemia with Hgb=8.7, Hct=28.4 Platelets=14 Lr=143, K=6.8, Cl=96, CO2=7, BUN=46 and Cr=1.86, Glu=33 Patient was administered additional 500mL NSS for hypotension (1L total), 1 amp of Calcium gluconate, 1 amp D50 and 1 amp bicarbonate MICU was notified for transfer. Full Code status verified again with family. [facility] Patient was subsequently placed on BiPAP (02/25 100% FiO2) for acute hypoxic respiratory failure and increased WOB Levophed initiated 0.05mcg/kg/min for ongoing hypotension Additional labs were drawn to include: Blood cultures, cortisol, VBG, troponin, Ammonia, Lactate and Procalcitonin CT C/A/P ordered Doppler bilateral LE ordered Patient was transferred to the MICU for ongoing care Please see Critical Care consultation note
[2022-09-25] MEDS: SODIUM BICARBONATE 8.4% 150 MEQ in DEXTROSE 5% 1,000 ML IV SCH (21:57)
[2022-09-25] MEDS: NOREPINEPHRINE/D5W 4 MG/250 ML PLCT IV SCH (21:59)
--- NOTE | 2022-09-25 22:24 | Procedure Note ---
Procedure Note Date of Service September 25, 2022 Note INTERNAL JUGULAR CENTRAL LINE PROCEDURE NOTE: Procedure: Internal Jugular Central Line Placement Attending: Dr. Hernandez Provider: AMANDA Ramsay Indication: Central Drug Administration Anesthesia: Lidocaine 1% Line placed emergently in the setting of shock requiring vasopressor support A time-out was completed verifying correct patient, procedure, site, positioning, and implants(s) or special equipment if applicable. Patients right neck was cleansed and draped in the typical sterile fashion using Chloraprep. The Internal Jugular Vein and Carotid Artery were identified using ultrasound. The superficial tissue was anesthetized using 3 mL of 1% lidocaine without epinephrine under direct visualization with the ultrasound. After adequate anesthetization was achieved, the Internal Jugular vein was cannulated under direct ultrasound guidance using an introducer needle on a syringe. Good venous blood return was maintained prior to removal of syringe from introducer needle. Using Seldinger Technique, a guide wire was advanced through the introducer needle without resistance. The introducer needle was removed and ultrasound images were obtained of the guide wire within the Internal Jugular Vein and saved to the patients medical record. A small incision was made in penetrating fashion at the guide wire insertion site utilizing an 11 blade scalpel. The dilator was advanced to the vessel without resistance. The dilator was exchanged for the triple lumen catheter which was advanced into the vessel without resistance. The guide wire was removed intact from the catheter without issue. Claves were placed on each catheter tip with confirmation of good blood flow from each lumen. Each port was easily flushed with sterile saline. The catheter was placed at 16 cm and sut[address] in place. BioPatch was applied to the catheter and a sterile Tegaderm dressing was applied over the catheter with careful attention to sterility. Patient tolerated procedure well. No immediate complications were met. Post procedure x-ray was completed, placement was appropriate and no pneumothorax was noted. Coding CPT Codes Tubes, Drains, and Vasc Access - Tubes, Drains, and Vasc Access: [id number] Place catheter in vein superior or inferior vena cava ([id number]) [facility] [place] Procedure Codes (Charges) Tubes, Drains, and Vasc Access Procedure 1: Tubes, Drains, and Vasc Access: [id number] Place catheter in vein superior or inferior vena cava
--- NOTE | 2022-09-25 22:24 | Critical Care Consultation ---
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 He is c urrently requiring vasopressor support and BiPAP, and is on bicarb drip. Neuro - Encephalopathylikely multifactoral in the setting of acute liver failure with elevated ammonia, acute renal failure with BUN of 46, and septic shock. We will proceed with lactulose enemas as patient is now n.p.o. and treat underlying causes. Cardiac - Shocklikely septic as patient now has evidence of aspiration pneumonia on CT chest, and metabolic acidosis likely contributing with multisystem organ failure. - Right IJ CVL inserted and now on Levophed drip. We will maintain maps greater than 65. - H&H stable - TTE 09/23 with normal LVEF 65 to 70%, right ventricle mildly dilated - Random cortisol 18, given 100 mg hydrocortisone as patient was previously on prednisone. We will continue with 50 every 8 hours - EKG without ST elevation, troponin mildly elevated likely to renal failure and hypoxic demand. Will trend for now Respiratory - Acute hypoxic respiratory failureno prior history of pulmonary disease and is likely related to the aspiration pneumonitis/pneumonia seen on CT chest. - Currently maintaining oxygen saturation on BiPAP. No hypercapnia on blood gas. Will wean oxygen requirements as tolerated - Unable to obtain CTA to rule out PE. We will hold on prophylactic anticoagulation due to thrombocytopenia and risk for bleeding. Obtain lower extremity Doppler - Hold on diuresis as patient is currently hypotensive and acute renal failure - Continuous monitoring on pulse ox GI - Acute liver failurelikely secondary to metastatic liver disease. - MRCP From earlier today with innumerable hepatic masses consistent with metastatic disease and hepatomegaly with nodular liver contour and small amounts of ascites, no biliary or pancreatic ductal dilation - Cannot rule out component of shock liver in the setting of hypotension which may be contributing as well - Meld of 30 with 52% predicted 3-month mortality - GI following appreciate recommendations - Lactulose enemas as patient is now n.p.o. RENAL/LYTES - Acute renal failurepatient with elevated creatinine of 1.9, hyperkalemia, and metabolic acidosis. Suspect lactic acidosis is largely contributing which may be more related to liver dysfunction. - Continue with bicarb drip and trend VBG's and BMPs every 4 hours - Maintain maps greater than 65 -Avoid nephrotoxins and renally adjust medications - Esteves catheter inserted, Monitor strict I's and O's ENDO - No history of diabetes or thyroid disease, ICU hyperglycemic protocol HEME - H&H is currently acceptable, will monitor routine CBC and transfuse for hemoglobin less than 7 ThrombocytopeniaPlatelets currently 14,000, will hold on transfusion at this time as there is no signs of bleeding. Continue to monitor with CBC ID - Sepsissuspect this is likely pulmonary considering aspiration pneumonia seen on CT scan. Patient with elevated lactate, procalcitonin, and mild leukocytosis - Nasal MRSA negative. Repeat blood cultures pending - Antibiotics broadened to Zosyn Heme-onc History of recurring prostate cancer now metastatic to bones and newly discovered liver. Patient last completed chemotherapy in 2021 at [facility]. Patient follows with Dr. Garcia who is consulted on this admission. LINES/IV ACCESS - Right IJ CVL, peripheral IVs DVT PROPHYLAXIS - SCDs, hold on anticoagulation given thrombocytopenia Disposition: At this time patient is likely in a terminal state, however family would like to continue with aggressive treatment measures. Patient has been made full code in the event of cardiac arrest by son and daughter, as he is now encephalopathic and unable to make decisions regarding his care. Patient's prognosis and goals of care were discussed with the patient's son and daughter at the bedside between myself and the primary team. Patient was transferred to ICU for further management. Expect that patient and family would benefit from additional conversations regarding goals of care. At this time, they are not interested in transitioning to comfort measures, although patient had been made DNR earlier today with goal of discharge home on hospice. Palliative is consulted and is following. I have personally spent 70 minutes of critical care time in the direct management of this patient. This is a life/limb threatening event. This includes time spent evaluating patient, direct bedside care, chart review, placing orders, interpretation of diagnostic studies, discussion with consultants, patient, and family members, as well as other required patient management activities. This time is exclusive of all separately billable procedures, and teaching time and separate from and in addition to any other critical care service time. Thank you for allowing us to participate in the care of this patient. Please refer to my attending physician's documentation for any further recommendations. (2) Prostate cancer metastatic to bone: (3) Metastasis to liver: (4) Hyperkalemia: (5) Acute renal failure: (6) Acute liver failure: (7) Acute respiratory failure with hypoxia: (8) Metabolic acidosis: Supervising Physician Co-Signing Physician Notes I have personally evaluated and examined this patient. I agree with assessment and plan of Nancy PATEL. Patient with multisystem organ failure, and anuric with severe acidosis despite bicarb infusion, extremely elevated lactic acidosis with increasing vasoactive medication requirement. I reviewed prior records, patient was hoping to transition to hospice at home on Tuesday. Overnight he decompensated, I was contacted by Nancy PATEL, and made aware of the clinical scenario. In discussion with family their goal was to hopefully go home with hospice, we discussed risk and benefit of intubation, I do not believe intubation would be ultimately successful in correcting underlying medical issues. I do believe the patient is an end-stage terminal condition without meaningful chance of recovery. After answering questions and clarifying current status the decision was made to not undergo heroic measures in event of cardiac arrest. He has reached maximum therapy, we discussed transitioning to comfort and the double effect associated with narcotics. Family feels that the patient is uncomfortable, I agree with their assessment and we will proceed with pain medication for air hunger and discomfort. He reiterated this may hasten the natural dying process; however, our overarching goal is to limit suffering and the patient's discomfort. Hospital medicine is aware of the change in CODE STATUS and goals of comfort during the dying process I have personally spent 45 minutes of critical care time in the direct management of this patient. This is a life/limb threatening event. This includes time spent evaluating patient, direct bedside care, chart review, placing orders, interpretation of diagnostic studies, discussion with consultants, patient, and/or family members regarding treatment decisions, as well as other required patient management activities. This time is exclusive of all separately billable procedures, and teaching time and separate from and in addition to any other critical care service time. History of Present Illness Attending Physician: Tra Barnett MD History of Present Illness Patient is a 72-year-old male with past medical history significant for metastatic prostate cancer with metastasis to bone and liver, pancytopenia, HTN, who presented to the emergency department on 09/21With complaints of generalized weakness. Patient had ongoing and worsening altered mental status over the past few days prior to admission and had become progressively weak with decreased p.o. intake, and family had noticed that his skin was turning yellow. His last chemotherapy was in March 2022 at [facility]. Patient was admitted to the hospital at that time and was undergoing treatment for acute liver failure. MRCP resulted with innumerable hepatic masses consistent with metastatic disease. Patient was seen by palliative today and plans for patient to go home on hospice care at the beginning of next week are being made, and his CODE STATUS was transitioned to DNR/DNI by the primary team. Earlier this evening, Code purple was called as the patient was getting back from the toilet and suddenly became hypotensive, hypoxic, and had agonal breathing. After discussion with the family including the son and daughter, patient's DNR status was reversed to full code. Patient's son and daughter state that he was not In the right mind to make that decision and want him to be full code. It was explained that the patient's prognosis is terminal and that he is likely in the active stages of dying. Despite our conversation, patient's family would still like him to be full code and want everything necessary done to allow more time with their father. Patient was then transferred to the ICU and placed on BiPAP and a central line has been inserted as he is now on vasopressors. Lab work revealed severe metabolic acidosis with pH 7.06 and lactic acid of 17, worsening liver failure, and worsening renal failure. Patient was taken for CT chest, abdomen and pelvis. CT abdomen and pelvis a ppear unchanged from prior study, however CT chest did reveal that the patient likely aspirated. Patient is now encephalopathic and I do not feel that he is able to participate in discussions with goals of care. We will continue with treatment in ICU for the time being, however the patient does have a very poor prognosis. It would be beneficial to have additional discussion with goals of care including palliative and patient's family Who are now acting and POA Allergies Allergy/AdvReac Type Severity Reaction Status Date / Time No Known Allergies Allergy Verified 09/15/22 09:38 Home Medications Medication Instructions Recorded Confirmed Type ondansetron HCl 8 mg tablet 8 mg PO Q8H PRN Nausea 06/06/19 09/21/22 History pantoprazole 40 mg tablet,delayed 40 mg PO DAILY 07/03/20 09/21/22 History release aspirin 81 mg capsule 81 mg PO DAILY 03/12/22 09/21/22 History oxycodone 10 mg tablet 10 mg PO Q4 PRN mod to severe pain 09/21/22 09/21/22 History prednisone 10 mg tablet 10 mg PO DAILY 09/21/22 09/21/22 History Patient History Medical History Hypertension Prostate cancer metastatic to bone Syncope Surgical History S/P prostatectomy Family History Other No pertinent family history Social History Smoking Status: Unknown if ever smoked Tobacco Type: Cigarettes Hx Alcohol Use: No Hx Substance Use: No Preferred Language: Czech Communication Ability: Effective Visual Impairment: No Limitations 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 PERRLA, sclera jaundiced ENMT: external ear and nose normal, oropharynx normal Neck: trachea midline, no thyromegaly Respiratory: Lungs with coarse crackles auscultated bilaterally with diminished bases, symmetrical chest wall movement. Nonlabored breathing on BiPAP with mild tachypnea. Cardiovascular: Rate/Rhythm: regular rate and regular rhythm Heart Sounds: normal S1 and normal S2; no murmur Extremities: normal capillary refill Gastrointestinal (Abdomen): normal bowel sounds, soft, nontender, no hepatosplenomegaly Musculoskeletal: no cyanosis or clubbing, extremities motor strength 5/5 Skin: Jaundice, no rashes, warm and dry Neurologic: Confused, no dysarthria or facial palsy. Symmetrical movement. PERRLA Psychiatric: Orientation: oriented to person; + not oriented to place and + not oriented to time Genitourinary: Indwelling Esteves catheter present Results & Data Results & Data Vital Signs (Past 12 Hours) Vital Signs Temp Pulse Pulse Resp BP BP Pulse Ox 09/25/22 21:00 172 H 34 H 09/25/22 20:53 34.6 C L 95 H 34 H 75/46 L 94 09/25/22 15:40 36.6 C 68 17 107/74 95 09/25/22 11:31 36.3 C L 98 H 17 135/75 94 O2 Del Method O2 Flow Rate FiO2 09/25/22 21:00 100 09/25/22 20:53 Oxymask 10 09/25/22 15:40 Room Air 09/25/22 11:31 Room Air Coding Level of Care Code 70070 CRITICAL CARE EA ADD 30M Diagnoses Septic shock A41.9; R65.21 Prostate cancer metastatic to bone C61; C79.51 Metastasis to liver C78.7 Hyperkalemia E87.5 Acute renal failure N17.9 Acute liver failure K72.00 Acute respiratory failure with hypoxia J96.01 Metabolic acidosis E87.20
--- NOTE | 2022-09-25 22:26 | CT Scan Report ---
Exam(s): CT CHEST Without Contrast EXAM: CT Chest Without Intravenous Contrast CLINICAL HISTORY: Reason for exam: acute decompensation, SOB. TECHNIQUE: Axial computed tomography images of the chest without intravenous contrast. CTDI is 10.06 mGy and DLP is 292.95 mGy-cm. Automated exposure control was utilized for the study. A dose lowering technique was utilized adhering to the principles of ALARA. COMPARISON: No relevant prior studies available. FINDINGS: Lungs: Airspace consolidation of the RIGHT lung base, concerning for aspiration pneumonia. Small RIGHT parapneumonic effusion. No pneumothorax. Pleural space: See above. Heart: Cardiomegaly. No significant pericardial effusion. No significant coronary artery calcifications. Bones/joints: Diffuse osteosclerosis, concerning for diffuse metastatic disease. Correlate for any history of prostate cancer. Degenerative changes of the spine. No acute fracture. No dislocation. Soft tissues: Unremarkable. Vasculature: Atherosclerotic changes of the aorta. No thoracic aortic aneurysm. Lymph nodes: Unremarkable. No enlarged lymph nodes. Liver: Hepatic steatosis. IMPRESSION: 1. Airspace consolidation of the RIGHT lung base, concerning for aspiration pneumonia. Small RIGHT parapneumonic effusion. No pneumothorax. 2. Diffuse osteosclerosis, concerning for diffuse metastatic disease. Correlate for any history of prostate cancer. Electronically signed by: George Ramos MD 09/25/22 22:25 PM
--- NOTE | 2022-09-25 22:39 | XRay Report ---
SINGLE VIEW CHEST CLINICAL HISTORY: Central venous catheter placement. FINDINGS: An AP, portable, upright chest radiograph is compared to study dated 09/21/2022 and correlate d with chest CT dated 09/25/2022. The examination is degraded by portable technique and apical lordotic positioning. A right internal jugular central venous catheter has been placed. The tip projects over the cavoatrial junction. The cardiomediastinal silhouette is unremarkable noting atherosclerotic tiff cification of the thoracic aorta. There is elevation of the right hemidiaphragm. Scarring/atelectasis is noted at the lung bases. There is a right pleural effusion. No pneumothorax is seen. The bony tho rax is grossly intact. Again seen is evidence of extensive/diffuse osteoblastic metastatic disease. IMPRESSION: 1. A right internal jugular central venous catheter has been placed as above. No pneumothorax is seen post procedure. 2. Right pleural effusion. 3. Extensive/diffuse osteoblastic metastatic disease is again noted. ACT 112: Negative or not required by law. Electronically signed by: Antelmo Watts M.D. 09/25/2022 10:38 PM
--- NOTE | 2022-09-25 22:43 | CT Scan Report ---
Exam(s): CT ABDOMEN + PELVIS Without Contrast EXAM: CT Abdomen and Pelvis Without Intravenous Contrast CLINICAL HISTORY: Reason for exam: acute decompensation. TECHNIQUE: Axial computed tomography images of the abdomen and pelvis without intravenous contrast. CTDI is 10.09 mGy and DLP is 551.24 mGy-cm. Automated exposure control was utilized for the study. A dose lowering technique was utilized adhering to the principles of ALARA. COMPARISON: No relevant prior studies available. FINDINGS: Lung bases: Unremarkable. No mass. No consolidation. ABDOMEN: Liver: Unremarkable. Gallbladder and bile ducts: Unremarkable. No calcified stones. No ductal dilation. Pancreas: Unremarkable. No ductal dilation. Spleen: Unremarkable. No splenomegaly. Adrenals: Mild thickening of the adrenal glands. Kidneys and ureters: No hydronephrosis or delayed nephrogram. Decompressed urinary bladder. Stomach and bowel: Unremarkable. No obstruction. No mucosal thickening. PELVIS: Appendix: No findings to suggest acute appendicitis. Bladder: Unremarkable. No stones. Reproductive: Surgical clips in the pelvis, correlate for prostatectomy. Diffuse osteosclerosis, concerning for diffuse metastatic prostate cancer. ABDOMEN and PELVIS: Intraperitoneal space: Hepatic steatosis with heterogeneous liver parenchyma. Diffuse metastatic involvement cannot entirely be excluded. Correlate with LFTs. Mild abdominal ascites. No free air. Bones/joints: Grade 2 anterolisthesis of L5 on S1, measures 1.3 cm. Bilateral pars defects at L5. Severe bilateral foraminal stenosis. No acute fracture. No dislocation. Soft tissues: Fat-containing bilateral inguinal hernias. Vasculature: Unremarkable. No abdominal aortic aneurysm. Lymph nodes: Unremarkable. No enlarged lymph nodes. IMPRESSION: 1. Hepatic steatosis with heterogeneous liver parenchyma. Diffuse metastatic involvement cannot entirely be excluded. Correlate with LFTs. Mild abdominal ascites. 2. Surgical clips in the pelvis, correlate for prostatectomy. Diffuse osteosclerosis, concerning for diffuse metastatic prostate cancer. Electronically signed by: George Ramos MD 09/25/22 22:42 PM
[2022-09-25] MEDS: HYDROCORTISONE SOD 50 MG in SYRINGE 0 ML IV SCH (22:56)
[2022-09-26 00:21] LABS: Base Excess VBG -18.8 mEq/L; HCO3 VBG 8 mmol/L; Oxygen Saturation VBG 69.1 %; PCO2 VBG 24 mmHg (38-50); PO2 VBG 47 mmHg; pH VBG 7.15 (7.36-7.41)
[2022-09-26] MEDS ORDERED: STAT IV STA ×2 (00:41→04:43)
[2022-09-26] MEDS ORDERED: DEXTROSE 50% 50 ML SYRINGE IV ONE ×2 (00:41→04:43)
[2022-09-26 00:42] LABS: BUN Creatinine Ratio 24.6 (10-20); Calcium 8.8 mg/dl (8.6-10.3); Creatinine Clr Calc Pharmacy 33.4 ml/min; Est GFR (African American) 38.3 ml/min; Potassium 6.5 mmol/L (3.5-5.1)
[2022-09-26] MEDS: ALBUMIN 25% 100 mL 25 GM/100 ML VIAL IV SCH ×2 (00:57→08:57)
[2022-09-26] MEDS: LACTULOSE 200GM/700ML WTR ENEMA PR SCH ×2 (00:58→10:20)
--- NOTE | 2022-09-26 00:59 | Ultrasound Report ---
Exam(s): US VENOUS BILATERAL LOWER EXTREMITIES EXAM: US Duplex Bilateral Lower Extremities Veins CLINICAL HISTORY: Reason for exam: ?VTE/PE/DVT. TECHNIQUE: Real-time duplex ultrasound scan of the bilateral lower extremity veins integrating B-mode two-dimensional vascular structure, Doppler spectral analysis, color flow Doppler imaging and compression. COMPARISON: No relevant prior studies available. FINDINGS: Right deep veins: Unremarkable. No DVT in the right common femoral, femoral, proximal deep femoral or popliteal veins. The veins demonstrate normal color flow, are normally compressible, with normal phasic flow and/or augmentation response. Right superficial veins: Unremarkable. No thrombus in the visualized right great saphenous vein. Left deep veins: Unremarkable. No DVT in the left common femoral, femoral, proximal deep femoral or popliteal veins. The veins demonstrate normal color flow, are normally compressible, with normal phasic flow and/or augmentation response. Left superficial veins: Unremarkable. No thrombus in the visualized left great saphenous vein. Soft tissues: No acute findings. No popliteal cyst. IMPRESSION: Normal bilateral lower extremity duplex venous ultrasound. Electronically signed by: George Ramos MD 09/26/22 00:58 AM
[2022-09-26] MEDS ORDERED: INSULIN HUMAN REGULAR PER UNIT 10 UNITS in SYRINGE 9.9 ML IV ONE ×2 (01:00→05:00)
[2022-09-26] MEDS ORDERED: CALCIUM GLUCONATE 10% 1,000 MG in DEXTROSE 5% 50 ML IV ONE ×2 (01:00→05:00)
[2022-09-26] MEDS ORDERED: SODIUM BICARB 8.4% INJ 50 MEQ/50 ML SYR IV STA ×2 (01:05→04:14)
[2022-09-26] MEDS: HYDROmorphone INJ 0.5 MG/0.5 ML SYR IV PRN ×3 (02:16→09:29)
[2022-09-26] MEDS ORDERED: SODIUM CHLORIDE 0.9% 1000ML 1,000 ML IV ONE (03:05)
[2022-09-26] MEDS: HYDROCORTISONE SOD 50 MG in SYRINGE 0 ML IV SCH ×2 (03:40→13:05)
[2022-09-26] MEDS: PIPERACILLIN/TAZOBACTAM 4.5 GM in DEXTROSE 5% 100 ML IV SCH ×2 (03:44→13:05)
[2022-09-26 03:52] LABS: HCO3 VBG 10 mmol/L; Oxygen Saturation VBG 61.6 %; PCO2 VBG 29 mmHg (38-50); PO2 VBG 41 mmHg; pH VBG 7.16 (7.36-7.41)
[2022-09-26 04:09] LABS: Hematocrit (blood only) 19.6 % (42.0-52.0); Hemoglobin 5.9 g/dl (14.0-18.0); Mean Corpuscular Hemoglobin 28.1 pg (25.0-34.0); Mean Corpuscular Hgb Conc 30.1 g/dL (32.0-36.0); Mean Corpuscular Volume 93.3 fL (80.0-100.0); Nucleated RBC # (auto) 1.73 K/uL (0-0.12); Nucleated RBC % (auto) 13.9 %; Platelet Count 11 K/uL (130-400); RDW Coefficient of Variation 19.2 % (11.5-14.5); RDW Standard Deviation 64.6 fL (36.4-46.3); White Blood Count 12.42 K/ul (4.8-10.8)
[2022-09-26] MEDS ORDERED: SODIUM CHLORIDE 0.9% 250 ML IV PRN ×2 (04:15→05:28)
[2022-09-26] MEDS ORDERED: SURGICEL FIBRILLAR HEMOSTAT 1 X 2IN TOP ONE (04:35)
[2022-09-26 04:40] LABS: Albumin Globulin Ratio 1.5 (0.9-2); Albumin Level 2.7 gm/dl (3.4-5.0); BUN Creatinine Ratio 22.8 (10-20); Bilirubin,Total 14.3 mg/dl (0.2-1.0); Calcium 8.6 mg/dl (8.6-10.3); Creatinine Clr Calc Pharmacy 36.1 ml/min; Est GFR (African American) 37.6 ml/min; Est GFR (Non-African American) 32.4 ml/min; Globulin 1.8 gm/dl (2.5-4.0); Magnesium 2.6 mg/dl (1.7-2.4); Potassium 6.2 mmol/L (3.5-5.1); Total Protein 4.5 gm/dl (6.0-8.3); Uric Acid 19.7 mg/dl (2.6-7.2)
[2022-09-26 05:27] LABS: INR 2.6 (0.9-1.1); Prothrombin Time 27.2 Seconds (9.0-12.0)
[2022-09-26] MEDS: SODIUM BICARBONATE 8.4% 150 MEQ in DEXTROSE 5% 1,000 ML IV SCH (05:35)
[2022-09-26] MEDS ORDERED: PHYTONADIONE 10 MG in DEXTROSE 5% 50 ML IV ONE (05:45)
[2022-09-26] MEDS: NOREPINEPHRINE/D5W 4 MG/250 ML PLCT IV SCH (05:59)
[2022-09-26 07:08] LABS: Babesia microti DNA Not Detected (Not Detected)
[2022-09-26] MEDS: FOLIC ACID 1 MG TAB PO SCH (09:23)
[2022-09-26] MEDS: LACTULOSE SYRUP 20 GM/30 ML UDC PO SCH (09:23)
[2022-09-26] MEDS: THIAMINE HCL 100 MG TAB PO SCH (09:24)
[2022-09-26] MEDS: PANTOprazole 40 MG TAB PO SCH (09:24)
[2022-09-26] MEDS: ONDANSETRON INJ 2 MG/ML 2 ML VIAL IV PRN (09:29)
--- NOTE | 2022-09-26 10:10 | Hospitalist Progress Note ---
Date of Service September 26, 2022 Assessment & Plan (1) Goals of care, counseling/discussion: Plan: made DNR last evening w/ repeated discussions w/ patient given his continued wish AGAINST CPR/intubation if would not prolong life in meaningful way. had episode emesis last evening then went to bathroom and was found unresponsive w/ evidence for aspiration pneumonia on imaging/worsening metabolic acidosis/renal failure/hyperkalemia, hypotension and shock liver on top of progressive and likely aggressive metastatic prostate ca w/ bony mets and new mets to liver, not able to undergo any chemotherapy given his current state/prior blood counts IJ placed, bleeding and getting 1uPRBC w 2u platelets this morning, on BiPAP, with further significant distension of abdomen and LE edema on BiPAP and only 8cc urine 2 hours reported Lengthy discussion w/ daughter saray and son in lobby and repeated discussions in room w/ further decline. Did attempt dose of lasix for volume management/wheezing on exam/anasarca and urine output increased but BPs remaining low on Levophed which was increased. Confirmed DNR did not mean do not treat but rather do not resuscitate given risks w/ CPR/broken ribs/bleeding, possible need for chest tube/etc. Intubation w/ risks as well and pulm hemorrhage discussed and patient wished AGAINST these measures this morning when I saw him at bedside in 103, fatigued, ill appearing, on BipAP reporting nausea and no appetite but not wanting anything for nausea Decision to provide morphine for air hunger/resp symptoms and discontinue further IVF/medications contributing to worsening volume overload/making him more uncomfortable and they were on board with plan. Wanted to continue Levophed at present time to allow for more time/family to be with Mr Beltran but agreeable to focus on his comfort/making him comfortable and controlling his pain rather than to put him through more measures which may ultimately lead him to feel worse during his time of dying. Can transition to drip if needed BiPAP for now but can transition to NC as allowed for comfort/breathing Ativan available prn Palliative on consult and will be available in the morning pending course Eval again this afternoon around 220 and patient w/ agonal breathing, family at bedside. Some improvement in breathing w/ morphine and does appear more comfortable but discussed giving dose ativan for anxiety symptoms during this time and son Romero/daughter Saray at bedside and agreeable. Will plan to transition to NC for comfort as needed, continue m (2) Abnormal LFTs: Plan: 2nd to metastatic disease on MRCP w/ innumerable masses, primary tumor not definitiely identified (hx prostate ca mets to bone, suspect agressive form) Heme/onc consulted during stay, poor ability to tolerate any chemo given blood counts, palliative approach recommended morphine/ativan available as above, no further blood draws (3) Prostate cancer metastatic to bone: Plan: as above, progressive decline (4) Hypertension: Plan: hypotension/levophed overnight (5) Anemia: Plan: further drop/bleeding from IJ/PRBC/plt administered this morning (6) RAYMUNDO (acute kidney injury): Plan: further progressive kidney decline w/ hypotension/shock liver meds per ICU team, did give dose lasix for pulm congestion/ascites to help w/ breathing but discussed could worsen patient condition with children and they wanted to attempt (7) Hyponatremia: Plan: 2nd to above (8) Metastasis to liver: (9) Hyperkalemia: Plan: worsening hyperkalemia in setting of hypotension/shock liver, progressive meds (10) Acute renal failure: Plan: 2nd hypotension/shock, as above (11) Septic shock: Plan: broad spectrum abx initiated for aspiration pneumonia/septic shock lactic >17 continually moving to comfort (12) Acute liver failure: Plan: 2nd to progressive meds/hypotension and shock (13) Acute respiratory failure with hypoxia: Plan: bipap in place, transition to NC when available (14) Metabolic acidosis: Admission and Anticipated Discharge Date Admission Date: September 22, 2022 Supervising Physician Co-Signing Physician Notes The patient was seen by me before he . The case was reviewed with LU Montiel. The chart was reviewed. Agree with assessment and plan Subjective Eval this morning, moved to ICU overnight. Patient nauseated but not wanting anything at present. Breathing stable on BiPAP. Denies any chest pain at present or abdominal pain but notes "I haven't done anything". Lengthy discussion w/ son and daughter in lobby to discuss events overnight, upset about DNR status and who changed this. Discussed patient told me no CPR/Intubation and would not want CPR/rib fractures or tube down his throat to prolong life but that time with family is his main goal and that he wants to be at home. Urine outpt 8cc in the prior 2 hours. Darkend/tea color. Getting 1u PRBC and on 2nd unit of platelets, bleeding noted from IJ site placed overnight. On low dose levophed. Discussed could attempt dose of lasix but he is also in kidney failure from shock/hypotension/liver mets and could also tip him further into the wrong direction, but that they want to know that they tried everything they could. Abx for aspiration pneumonia and will continue. Discussed CPR/intubation and they want to talk with yaakov further about this before deciding to transition to DNR status but did make known hospice is with understanding DNR status but could be revoked and they aren't tied to this decision if they should so choose to change such. Questions/concerns addressed at this time. They did note several times they came here from [facility] as they thought better care but very disappointed by interactions with nursing and several providers day prior. Continue apologies for communication breakdown but that patient did voice that he did not want those measures but that did not mean we weren't continuing to try and get him as stable as possible for anticipation home with family on hospice. Physical Exam Physical Exam: General: chronically ill appearing male on BiPAP, nauseated jaundiced appearance, b/l scleral icterus chest: IJ in place w/ trace blood noted around dressing resp : on BiPAP, bilateral wheezing L>R, diminished in bases w/ associated crackles, no distress CV: regular rate/rhythm, significantly worsening LE edema GI: significantly distended, tense/firm, tender : gu w/ scant tea colored urine MSK/Neuro/psych: able to tell me his name/where he was, not able to participate in exam due to extreme weakness, anasarca, depressed, reporting nausea and wanting to sleep Results & Data Results & Data Vital Signs (Past 12 Hours) Vital Signs Temp Pulse Resp BP Pulse Ox O2 Del Method FiO2 09/26/22 09:41 35.5 C L 84 126/68 22 L 09/26/22 08:31 35.0 C L 93 H 22 100 BiPAP 09/26/22 08:31 120/67 09/26/22 08:30 35.0 C L 83 20 100 BiPAP 09/26/22 08:15 34.8 C L 83 21 100 BiPAP 05/07/23 08:15 99/78 L 09/26/22 08:00 34.7 C L 20 100 BiPAP 09/26/22 08:00 119/82 09/26/22 07:45 34.6 C L 87 21 100 BiPAP 09/26/22 07:45 145/83 H 09/26/22 07:13 34.5 C L 83 121/72 100 09/26/22 07:07 34.5 C L 101 H 120/67 100 09/26/22 08:22 BiPAP 09/26/22 07:25 88 22 99 50 09/26/22 07:30 34.4 C L 81 23 100 BiPAP 09/26/22 07:30 131/72 09/26/22 07:15 34.3 C L 21 100 BiPAP 09/26/22 07:15 115/97 09/26/22 07:00 34.2 C L 22 100 BiPAP 09/26/22 07:00 133/88 09/26/22 07:33 81 09/26/22 06:43 34.4 C L 100 H 115/97 100 09/26/22 06:28 34.4 C L 100 H 115/97 100 09/26/22 06:51 34.2 C L 133 H 26 H 123/80 100 09/26/22 06:16 34.2 C L 121 H 26 H 95 09/26/22 06:16 136/71 09/26/22 06:10 34.2 C L 117 H 29 H 96 09/26/22 06:01 109/81 09/26/22 06:01 34.3 C L 149 H 26 H 93 09/26/22 06:00 34.3 C L 95 H 23 93 09/26/22 05:50 34.4 C L 173 H 26 H 96 09/26/22 06:07 96 H 24 94 50 09/26/22 05:45 34.4 C L 133 H 29 H 93 09/26/22 05:45 105/53 L 09/26/22 05:37 34.5 C L 149 H 23 96 09/26/22 05:37 92/46 L 09/26/22 05:31 34.6 C L 154 H 24 97 09/26/22 05:31 70/42 L 09/26/22 05:30 34.6 C L 131 H 29 H 89 L 05/07/23 05:15 34.6 C L 156 H 31 H 100 09/26/22 05:01 34.6 C L 138 H 26 H 09/26/22 05:01 102/41 L 09/26/22 05:00 34.6 C L 160 H 28 H 09/26/22 04:45 34.6 C L 83 25 H 98 09/26/22 04:45 97/56 L 09/26/22 04:31 34.7 C L 82 24 96 09/26/22 04:31 108/74 09/26/22 04:30 34.7 C L 101 H 31 H 98 09/26/22 04:15 34.8 C L 82 28 H 95 09/26/22 04:15 118/66 09/26/22 04:01 34.8 C L 163 H 32 H 100 09/26/22 04:01 110/57 L 09/26/22 04:00 34.8 C L 163 H 29 H 97 09/26/22 03:45 34.9 C L 163 H 32 H 99 09/26/22 03:45 98/57 L 09/26/22 03:31 34.9 C L 160 H 31 H 96 09/26/22 03:31 96/64 L 09/26/22 03:30 34.9 C L 88 31 H 93 09/26/22 03:15 34.9 C L 83 33 H 100 09/26/22 03:15 110/67 09/26/22 03:01 80/58 L 09/26/22 03:01 34.9 C L 129 H 35 H 93 09/26/22 03:00 34.9 C L 132 H 35 H 99 09/26/22 02:46 102/57 L 09/26/22 02:46 34.9 C L 86 27 H 100 09/26/22 02:45 34.9 C L 85 35 H 98 09/26/22 02:30 34.9 C L 87 27 H 96 09/26/22 02:30 101/63 09/26/22 02:17 34.9 C L 88 32 H 98 09/26/22 02:17 106/59 L 09/26/22 02:15 34.9 C L 88 24 100 09/26/22 02:07 106/61 0523 02:07 34.9 C L 88 31 H 100 09/26/22 02:00 34.9 C L 89 32 H 98 09/26/22 01:56 157/69 H 09/26/22 01:56 34.9 C L 90 32 H 100 09/26/22 01:45 34.7 C L 90 30 H 91 09/26/22 01:30 108 H 30 H 100 09/26/22 01:30 103/67 09/26/22 01:15 90 34 H 99 09/26/22 01:00 34.9 C L 169 H 29 H 100 09/26/22 01:00 112/54 L 09/26/22 06:10 34.2 C L 105 H 28 H 109/81 95 09/26/22 03:20 90 31 H 100 40 09/26/22 00:15 34.7 C L 91 H 26 H 100 09/26/22 00:15 106/74 09/26/22 00:00 34.6 C L 165 H 25 H 100 09/26/22 00:00 105/60 09/26/22 00:02 BiPAP 09/25/22 23:50 34.6 C L 82 31 H 100 09/25/22 23:45 104/66 09/25/22 23:45 34.6 C L 85 33 H 100 09/25/22 23:41 34.6 C L 91 H 29 H 100 09/25/22 23:41 108/59 L 09/25/22 23:40 34.6 C L 163 H 28 H 100 09/25/22 23:30 34.6 C L 142 H 31 H 100 09/25/22 23:20 34.6 C L 192 H 24 98 09/25/22 23:15 34.6 C L 144 H 26 H 100 09/25/22 23:10 34.6 C L 142 H 29 H 100 09/25/22 23:00 34.6 C L 80 32 H 100 09/25/22 23:00 101/59 L 09/25/22 22:45 34.6 C L 31 H 100 09/25/22 22:45 105/66 09/25/22 22:30 33 H 52 L 09/25/22 22:30 93/64 L 09/25/22 22:16 100/67 05/06/23 22:16 88 33 H 65 L 09/25/22 22:15 87 30 H 66 L 09/25/22 22:54 50 Laboratory Results 09/26/22 09/26/22 09/26/22 Range/Units 08:02 04:43 04:43 WBC (4.8-10.8) K/ul RBC (4.70-6.10) M/uL Hgb (14.0-18.0) g/dl Hct (42.0-52.0) % MCV (80.0-100.0) fL MCH (25.0-34.0) pg MCHC (32.0-36.0) g/dL RDW Std Deviation (36.4-46.3) fL RDW Coeff of Dwain (11.5-14.5) % Plt Count (130-400) K/uL Absolute Nucleated RBC (0-0.12) K/uL Nucleated RBC % (auto) % Neutrophils % (Manual) % Lymphocytes % (Manual) % Monocytes % (Manual) % Eosinophils % (Manual) % Basophils % (Manual) % Metamyelocytes % (Man) % Myelocytes % (Man) % Neutrophils # (Manual) (1.40-6.50) K/uL Total Absolute Neuts (1.4-6.5) K/uL Lymphocytes # (Manual) (1.2-3.4) K/uL Total Abs Lymphocytes (1.2-3.4) K/uL Monocytes # (Manual) (0.11-0.59) K/uL Eosinophils # (Manual) (0-0.50) K/uL Basophils # (Manual) (0-0.2) K/uL Metamyelocytes # (Man) (0-0) K/uL Myelocytes # (Manual) (0-0) K/uL Platelet Estimate (Normal) Polychromasia Tear Drop Cells PT 27.2 H (9.0-12.0) Seconds INR 2.6 H (0.9-1.1) VBG pH (7.36-7.41) VBG pCO2 (38-50) mmHg VBG pO2 mmHg VBG HCO3 mmol/L VBG O2 Saturation % VBG Base Excess mEq/L Sodium (136-145) mmol/L Potassium (3.5-5.1) mmol/L Chloride (98-107) mmol/L Carbon Dioxide (21-32) mmol/L Anion Gap (3-11) BUN (6-23) mg/dl Creatinine (0.6-1.4) mg/dl Est Cr Clr Drug Dosing ml/min Est GFR ( Amer) ml/min Est GFR (Non-Af Amer) ml/min BUN/Creatinine Ratio (10-20) Glucose (70-99(Fasting)) mg/dl POC Glucose 275 H (70-99) mg/dl Lactate (0.4-2.0) mmol/L Uric Acid (2.6-7.2) mg/dl Calcium (8.6-10.3) mg/dl Magnesium (1.7-2.4) mg/dl Total Bilirubin (0.2-1.0) mg/dl AST (13-39) U/L ALT (7-52) U/L Alkaline Phosphatase (34-104) U/L Ammonia (18-72) umol/L Troponin I High Sens (0-20) pg/ml Total Protein (6.0-8.3) gm/dl Albumin (3.4-5.0) gm/dl Globulin (2.5-4.0) gm/dl Albumin/Globulin Ratio (0.9-2) Vitamin B1 (8-30) nmol/L Procalcitonin (0-0.5) ng/ml Random Cortisol mcg/dl Nasal Screen MRSA (PCR) (Negative) Babesia microti DNA PCR (Not Detected) Blood Type A Positive Antibody Screen NEGATIVE Crossmatch See Detail 09/26/22 09/26/22 09/26/22 Range/Units 03:39 03:39 03:39 WBC (4.8-10.8) K/ul RBC (4.70-6.10) M/uL Hgb (14.0-18.0) g/dl Hct (42.0-52.0) % MCV (80.0-100.0) fL MCH (25.0-34.0) pg MCHC (32.0-36.0) g/dL RDW Std Deviation (36.4-46.3) fL RDW Coeff of Dwain (11.5-14.5) % Plt Count (130-400) K/uL Absolute Nucleated RBC (0-0.12) K/uL Nucleated RBC % (auto) % Neutrophils % (Manual) % Lymphocytes % (Manual) % Monocytes % (Manual) % Eosinophils % (Manual) % Basophils % (Manual) % Metamyelocytes % (Man) % Myelocytes % (Man) % Neutrophils # (Manual) (1.40-6.50) K/uL Total Absolute Neuts (1.4-6.5) K/uL Lymphocytes # (Manual) (1.2-3.4) K/uL Total Abs Lymphocytes (1.2-3.4) K/uL Monocytes # (Manual) (0.11-0.59) K/uL Eosinophils # (Manual) (0-0.50) K/uL Basophils # (Manual) (0-0.2) K/uL Metamyelocytes # (Man) (0-0) K/uL Myelocytes # (Manual) (0-0) K/uL Platelet Estimate (Normal) Polychromasia Tear Drop Cells PT (9.0-12.0) Seconds INR (0.9-1.1) VBG pH 7.16 L (7.36-7.41) VBG pCO2 29 L (38-50) mmHg VBG pO2 41 mmHg VBG HCO3 10 mmol/L VBG O2 Saturation 61.6 % VBG Base Excess -17.0 mEq/L Sodium 135 L (136-145) mmol/L Potassium 6.2 H* (3.5-5.1) mmol/L Chloride 95 L (98-107) mmol/L Carbon Dioxide 14 L (21-32) mmol/L Anion Gap 26 H (3-11) BUN 46 H (6-23) mg/dl Creatinine 2.02 H (0.6-1.4) mg/dl Est Cr Clr Drug Dosing 36.1 ml/min Est GFR ( Amer) 37.6 ml/min Est GFR (Non-Af Amer) 32.4 ml/min BUN/Creatinine Ratio 22.8 H (10-20) Glucose 162 H (70-99(Fasting)) mg/dl POC Glucose (70-99) mg/dl Lactate > 17.0 H* (0.4-2.0) mmol/L Uric Acid 19.7 H (2.6-7.2) mg/dl Calcium 8.6 (8.6-10.3) mg/dl Magnesium 2.6 H (1.7-2.4) mg/dl Total Bilirubin 14.3 H (0.2-1.0) mg/dl AST 5713 H (13-39) U/L ALT 686 H (7-52) U/L Alkaline Phosphatase 706 H (34-104) U/L Ammonia (18-72) umol/L Troponin I High Sens (0-20) pg/ml Total Protein 4.5 L (6.0-8.3) gm/dl Albumin 2.7 L (3.4-5.0) gm/dl Globulin 1.8 L (2.5-4.0) gm/dl Albumin/Globulin Ratio 1.5 (0.9-2) Vitamin B1 (8-30) nmol/L Procalcitonin (0-0.5) ng/ml Random Cortisol mcg/dl Nasal Screen MRSA (PCR) (Negative) Babesia microti DNA PCR (Not Detected) Blood Type Antibody Screen Crossmatch 09/26/22 09/26/22 09/26/22 Range/Units 03:39 00:13 00:13 WBC 12.42 H (4.8-10.8) K/ul RBC 2.10 L (4.70-6.10) M/uL Hgb 5.9 L* (14.0-18.0) g/dl Hct 19.6 L* (42.0-52.0) % MCV 93.3 (80.0-100.0) fL MCH 28.1 (25.0-34.0) pg MCHC 30.1 L (32.0-36.0) g/dL RDW Std Deviation 64.6 H (36.4-46.3) fL RDW Coeff of Dwain 19.2 H (11.5-14.5) % Plt Count 11 L* (130-400) K/uL Absolute Nucleated RBC 1.73 H (0-0.12) K/uL Nucleated RBC % (auto) 13.9 % Neutrophils % (Manual) % Lymphocytes % (Manual) % Monocytes % (Manual) % Eosinophils % (Manual) % Basophils % (Manual) % Metamyelocytes % (Man) % Myelocytes % (Man) % Neutrophils # (Manual) (1.40-6.50) K/uL Total Absolute Neuts (1.4-6.5) K/uL Lymphocytes # (Manual) (1.2-3.4) K/uL Total Abs Lymphocytes (1.2-3.4) K/uL Monocytes # (Manual) (0.11-0.59) K/uL Eosinophils # (Manual) (0-0.50) K/uL Basophils # (Manual) (0-0.2) K/uL Metamyelocytes # (Man) (0-0) K/uL Myelocytes # (Manual) (0-0) K/uL Platelet Estimate (Normal) Polychromasia Tear Drop Cells PT (9.0-12.0) Seconds INR (0.9-1.1) VBG pH 7.15 L (7.36-7.41) VBG pCO2 24 L (38-50) mmHg VBG pO2 47 mmHg VBG HCO3 8 mmol/L VBG O2 Saturation 69.1 % VBG Base Excess -18.8 mEq/L Sodium (136-145) mmol/L Potassium (3.5-5.1) mmol/L Chloride (98-107) mmol/L Carbon Dioxide (21-32) mmol/L Anion Gap (3-11) BUN (6-23) mg/dl Creatinine (0.6-1.4) mg/dl Est Cr Clr Drug Dosing ml/min Est GFR ( Amer) ml/min Est GFR (Non-Af Amer) ml/min BUN/Creatinine Ratio (10-20) Glucose (70-99(Fasting)) mg/dl POC Glucose 142 H (70-99) mg/dl Lactate (0.4-2.0) mmol/L Uric Acid (2.6-7.2) mg/dl Calcium (8.6-10.3) mg/dl Magnesium (1.7-2.4) mg/dl Total Bilirubin (0.2-1.0) mg/dl AST (13-39) U/L ALT (7-52) U/L Alkaline Phosphatase (34-104) U/L Ammonia (18-72) umol/L Troponin I High Sens (0-20) pg/ml Total Protein (6.0-8.3) gm/dl Albumin (3.4-5.0) gm/dl Globulin (2.5-4.0) gm/dl Albumin/Globulin Ratio (0.9-2) Vitamin B1 (8-30) nmol/L Procalcitonin (0-0.5) ng/ml Random Cortisol mcg/dl Nasal Screen MRSA (PCR) (Negative) Babesia microti DNA PCR (Not Detected) Blood Type Antibody Screen Crossmatch 09/26/22 09/26/22 09/25/22 Range/Units 00:13 00:13 21:21 WBC (4.8-10.8) K/ul RBC (4.70-6.10) M/uL Hgb (14.0-18.0) g/dl Hct (42.0-52.0) % MCV (80.0-100.0) fL MCH (25.0-34.0) pg MCHC (32.0-36.0) g/dL RDW Std Deviation (36.4-46.3) fL RDW Coeff of Dwain (11.5-14.5) % Plt Count (130-400) K/uL Absolute Nucleated RBC (0-0.12) K/uL Nucleated RBC % (auto) % Neutrophils % (Manual) % Lymphocytes % (Manual) % Monocytes % (Manual) % Eosinophils % (Manual) % Basophils % (Manual) % Metamyelocytes % (Man) % Myelocytes % (Man) % Neutrophils # (Manual) (1.40-6.50) K/uL Total Absolute Neuts (1.4-6.5) K/uL Lymphocytes # (Manual) (1.2-3.4) K/uL Total Abs Lymphocytes (1.2-3.4) K/uL Monocytes # (Manual) (0.11-0.59) K/uL Eosinophils # (Manual) (0-0.50) K/uL Basophils # (Manual) (0-0.2) K/uL Metamyelocytes # (Man) (0-0) K/uL Myelocytes # (Manual) (0-0) K/uL Platelet Estimate (Normal) Polychromasia Tear Drop Cells PT (9.0-12.0) Seconds INR (0.9-1.1) VBG pH (7.36-7.41) VBG pCO2 (38-50) mmHg VBG pO2 mmHg VBG HCO3 mmol/L VBG O2 Saturation % VBG Base Excess mEq/L Sodium 132 L (136-145) mmol/L Potassium 6.5 H* (3.5-5.1) mmol/L Chloride 95 L (98-107) mmol/L Carbon Dioxide 11 L (21-32) mmol/L Anion Gap 26 H (3-11) BUN 49 H (6-23) mg/dl Creatinine 1.99 H (0.6-1.4) mg/dl Est Cr Clr Drug Dosing 33.4 ml/min Est GFR ( Amer) 38.3 ml/min Est GFR (Non-Af Amer) 33.0 ml/min BUN/Creatinine Ratio 24.6 H (10-20) Glucose 136 H (70-99(Fasting)) mg/dl POC Glucose (70-99) mg/dl Lactate > 17.0 H* (0.4-2.0) mmol/L Uric Acid (2.6-7.2) mg/dl Calcium 8.8 (8.6-10.3) mg/dl Magnesium (1.7-2.4) mg/dl Total Bilirubin (0.2-1.0) mg/dl AST (13-39) U/L ALT (7-52) U/L Alkaline Phosphatase (34-104) U/L Ammonia (18-72) umol/L Troponin I High Sens (0-20) pg/ml Total Protein (6.0-8.3) gm/dl Albumin (3.4-5.0) gm/dl Globulin (2.5-4.0) gm/dl Albumin/Globulin Ratio (0.9-2) Vitamin B1 (8-30) nmol/L Procalcitonin (0-0.5) ng/ml Random Cortisol 18.27 mcg/dl Nasal Screen MRSA (PCR) (Negative) Babesia microti DNA PCR (Not Detected) Blood Type Antibody Screen Crossmatch 09/25/22 09/25/22 09/25/22 Range/Units 21:21 21:21 21:21 WBC (4.8-10.8) K/ul RBC (4.70-6.10) M/uL Hgb (14.0-18.0) g/dl Hct (42.0-52.0) % MCV (80.0-100.0) fL MCH (25.0-34.0) pg MCHC (32.0-36.0) g/dL RDW Std Deviation (36.4-46.3) fL RDW Coeff of Dwain (11.5-14.5) % Plt Count (130-400) K/uL Absolute Nucleated RBC (0-0.12) K/uL Nucleated RBC % (auto) % Neutrophils % (Manual) % Lymphocytes % (Manual) % Monocytes % (Manual) % Eosinophils % (Manual) % Basophils % (Manual) % Metamyelocytes % (Man) % Myelocytes % (Man) % Neutrophils # (Manual) (1.40-6.50) K/uL Total Absolute Neuts (1.4-6.5) K/uL Lymphocytes # (Manual) (1.2-3.4) K/uL Total Abs Lymphocytes (1.2-3.4) K/uL Monocytes # (Manual) (0.11-0.59) K/uL Eosinophils # (Manual) (0-0.50) K/uL Basophils # (Manual) (0-0.2) K/uL Metamyelocytes # (Man) (0-0) K/uL Myelocytes # (Manual) (0-0) K/uL Platelet Estimate (Normal) Polychromasia Tear Drop Cells PT (9.0-12.0) Seconds INR (0.9-1.1) VBG pH 7.06 L (7.36-7.41) VBG pCO2 28 L (38-50) mmHg VBG pO2 60 mmHg VBG HCO3 8 mmol/L VBG O2 Saturation 82.4 % VBG Base Excess -21.2 mEq/L Sodium (136-145) mmol/L Potassium (3.5-5.1) mmol/L Chloride (98-107) mmol/L Carbon Dioxide (21-32) mmol/L Anion Gap (3-11) BUN (6-23) mg/dl Creatinine (0.6-1.4) mg/dl Est Cr Clr Drug Dosing ml/min Est GFR ( Amer) ml/min Est GFR (Non-Af Amer) ml/min BUN/Creatinine Ratio (10-20) Glucose (70-99(Fasting)) mg/dl POC Glucose (70-99) mg/dl Lactate (0.4-2.0) mmol/L Uric Acid (2.6-7.2) mg/dl Calcium (8.6-10.3) mg/dl Magnesium (1.7-2.4) mg/dl Total Bilirubin (0.2-1.0) mg/dl AST (13-39) U/L ALT (7-52) U/L Alkaline Phosphatase (34-104) U/L Ammonia 77.0 H (18-72) umol/L Troponin I High Sens (0-20) pg/ml Total Protein (6.0-8.3) gm/dl Albumin (3.4-5.0) gm/dl Globulin (2.5-4.0) gm/dl Albumin/Globulin Ratio (0.9-2) Vitamin B1 (8-30) nmol/L Procalcitonin 2.13 H (0-0.5) ng/ml Random Cortisol mcg/dl Nasal Screen MRSA (PCR) (Negative) Babesia microti DNA PCR (Not Detected) Blood Type Antibody Screen Crossmatch 09/25/22 09/25/22 09/25/22 Range/Units 21:21 21:21 21:00 WBC (4.8-10.8) K/ul RBC (4.70-6.10) M/uL Hgb (14.0-18.0) g/dl Hct (42.0-52.0) % MCV (80.0-100.0) fL MCH (25.0-34.0) pg MCHC (32.0-36.0) g/dL RDW Std Deviation (36.4-46.3) fL RDW Coeff of Dwain (11.5-14.5) % Plt Count (130-400) K/uL Absolute Nucleated RBC (0-0.12) K/uL Nucleated RBC % (auto) % Neutrophils % (Manual) % Lymphocytes % (Manual) % Monocytes % (Manual) % Eosinophils % (Manual) % Basophils % (Manual) % Metamyelocytes % (Man) % Myelocytes % (Man) % Neutrophils # (Manual) (1.40-6.50) K/uL Total Absolute Neuts (1.4-6.5) K/uL Lymphocytes # (Manual) (1.2-3.4) K/uL Total Abs Lymphocytes (1.2-3.4) K/uL Monocytes # (Manual) (0.11-0.59) K/uL Eosinophils # (Manual) (0-0.50) K/uL Basophils # (Manual) (0-0.2) K/uL Metamyelocytes # (Man) (0-0) K/uL Myelocytes # (Manual) (0-0) K/uL Platelet Estimate (Normal) Polychromasia Tear Drop Cells PT (9.0-12.0) Seconds INR (0.9-1.1) VBG pH (7.36-7.41) VBG pCO2 (38-50) mmHg VBG pO2 mmHg VBG HCO3 mmol/L VBG O2 Saturation % VBG Base Excess mEq/L Sodium (136-145) mmol/L Potassium (3.5-5.1) mmol/L Chloride (98-107) mmol/L Carbon Dioxide (21-32) mmol/L Anion Gap (3-11) BUN (6-23) mg/dl Creatinine (0.6-1.4) mg/dl Est Cr Clr Drug Dosing ml/min Est GFR ( Amer) ml/min Est GFR (Non-Af Amer) ml/min BUN/Creatinine Ratio (10-20) Glucose (70-99(Fasting)) mg/dl POC Glucose (70-99) mg/dl Lactate 17.0 H* (0.4-2.0) mmol/L Uric Acid (2.6-7.2) mg/dl Calcium (8.6-10.3) mg/dl Magnesium (1.7-2.4) mg/dl Total Bilirubin (0.2-1.0) mg/dl AST (13-39) U/L ALT (7-52) U/L Alkaline Phosphatase (34-104) U/L Ammonia (18-72) umol/L Troponin I High Sens 48.5 H (0-20) pg/ml Total Protein (6.0-8.3) gm/dl Albumin (3.4-5.0) gm/dl Globulin (2.5-4.0) gm/dl Albumin/Globulin Ratio (0.9-2) Vitamin B1 (8-30) nmol/L Procalcitonin (0-0.5) ng/ml Random Cortisol mcg/dl Nasal Screen MRSA (PCR) Negative (Negative) Babesia microti DNA PCR (Not Detected) Blood Type Antibody Screen Crossmatch 09/25/22 09/25/22 09/25/22 Range/Units 20:46 19:28 19:28 WBC 11.71 H (4.8-10.8) K/ul RBC 3.06 L (4.70-6.10) M/uL Hgb 8.7 L (14.0-18.0) g/dl Hct 28.4 L (42.0-52.0) % MCV 92.8 D (80.0-100.0) fL MCH 28.4 (25.0-34.0) pg MCHC 30.6 L (32.0-36.0) g/dL RDW Std Deviation 64.1 H (36.4-46.3) fL RDW Coeff of Dwain 19.2 H (11.5-14.5) % Plt Count 14 L* (130-400) K/uL Absolute Nucleated RBC 1.10 H (0-0.12) K/uL Nucleated RBC % (auto) 9.4 % Neutrophils % (Manual) 60 % Lymphocytes % (Manual) 23 % Monocytes % (Manual) 1 % Eosinophils % (Manual) 1 % Basophils % (Manual) 3 % Metamyelocytes % (Man) 5 % Myelocytes % (Man) 8 % Neutrophils # (Manual) 7.03 H (1.40-6.50) K/uL Total Absolute Neuts 7.03 H (1.4-6.5) K/uL Lymphocytes # (Manual) 2.69 (1.2-3.4) K/uL Total Abs Lymphocytes 2.69 (1.2-3.4) K/uL Monocytes # (Manual) 0.12 (0.11-0.59) K/uL Eosinophils # (Manual) 0.12 (0-0.50) K/uL Basophils # (Manual) 0.35 H (0-0.2) K/uL Metamyelocytes # (Man) 0.59 H (0-0) K/uL Myelocytes # (Manual) 0.94 H (0-0) K/uL Platelet Estimate Signific. Decreased L (Normal) Polychromasia 1+ Tear Drop Cells 1+ PT (9.0-12.0) Seconds INR (0.9-1.1) VBG pH (7.36-7.41) VBG pCO2 (38-50) mmHg VBG pO2 mmHg VBG HCO3 mmol/L VBG O2 Saturation % VBG Base Excess mEq/L Sodium 129 L (136-145) mmol/L Potassium 6.8 H* D (3.5-5.1) mmol/L Chloride 96 L (98-107) mmol/L Carbon Dioxide 7 L* (21-32) mmol/L Anion Gap 26 H (3-11) BUN 46 H (6-23) mg/dl Creatinine 1.86 H (0.6-1.4) mg/dl Est Cr Clr Drug Dosing 35.8 ml/min Est GFR ( Amer) 41.6 ml/min Est GFR (Non-Af Amer) 35.9 ml/min BUN/Creatinine Ratio 24.7 H (10-20) Glucose 33 L* (70-99(Fasting)) mg/dl POC Glucose 85 (70-99) mg/dl Lactate (0.4-2.0) mmol/L Uric Acid (2.6-7.2) mg/dl Calcium 9.2 (8.6-10.3) mg/dl Magnesium (1.7-2.4) mg/dl Total Bilirubin 16.1 H (0.2-1.0) mg/dl AST 986 H (13-39) U/L ALT 176 H (7-52) U/L Alkaline Phosphatase 880 H (34-104) U/L Ammonia (18-72) umol/L Troponin I High Sens (0-20) pg/ml Total Protein 5.0 L (6.0-8.3) gm/dl Albumin 2.7 L (3.4-5.0) gm/dl Globulin 2.3 L (2.5-4.0) gm/dl Albumin/Globulin Ratio 1.2 (0.9-2) Vitamin B1 (8-30) nmol/L Procalcitonin (0-0.5) ng/ml Random Cortisol mcg/dl Nasal Screen MRSA (PCR) (Negative) Babesia microti DNA PCR (Not Detected) Blood Type Antibody Screen Crossmatch 09/25/22 09/22/22 09/21/22 Range/Units 06:21 12:25 23:19 WBC (4.8-10.8) K/ul RBC (4.70-6.10) M/uL Hgb (14.0-18.0) g/dl Hct (42.0-52.0) % MCV (80.0-100.0) fL MCH (25.0-34.0) pg MCHC (32.0-36.0) g/dL RDW Std Deviation (36.4-46.3) fL RDW Coeff of Dwain (11.5-14.5) % Plt Count (130-400) K/uL Absolute Nucleated RBC (0-0.12) K/uL Nucleated RBC % (auto) % Neutrophils % (Manual) % Lymphocytes % (Manual) % Monocytes % (Manual) % Eosinophils % (Manual) % Basophils % (Manual) % Metamyelocytes % (Man) % Myelocytes % (Man) % Neutrophils # (Manual) (1.40-6.50) K/uL Total Absolute Neuts (1.4-6.5) K/uL Lymphocytes # (Manual) (1.2-3.4) K/uL Total Abs Lymphocytes (1.2-3.4) K/uL Monocytes # (Manual) (0.11-0.59) K/uL Eosinophils # (Manual) (0-0.50) K/uL Basophils # (Manual) (0-0.2) K/uL Metamyelocytes # (Man) (0-0) K/uL Myelocytes # (Manual) (0-0) K/uL Platelet Estimate (Normal) Polychromasia Tear Drop Cells PT (9.0-12.0) Seconds INR (0.9-1.1) VBG pH (7.36-7.41) VBG pCO2 (38-50) mmHg VBG pO2 mmHg VBG HCO3 mmol/L VBG O2 Saturation % VBG Base Excess mEq/L Sodium (136-145) mmol/L Potassium (3.5-5.1) mmol/L Chloride (98-107) mmol/L Carbon Dioxide (21-32) mmol/L Anion Gap (3-11) BUN (6-23) mg/dl Creatinine (0.6-1.4) mg/dl Est Cr Clr Drug Dosing ml/min Est GFR ( Amer) ml/min Est GFR (Non-Af Amer) ml/min BUN/Creatinine Ratio (10-20) Glucose (70-99(Fasting)) mg/dl POC Glucose (70-99) mg/dl Lactate (0.4-2.0) mmol/L Uric Acid 16.2 H (2.6-7.2) mg/dl Calcium (8.6-10.3) mg/dl Magnesium (1.7-2.4) mg/dl Total Bilirubin (0.2-1.0) mg/dl AST (13-39) U/L ALT (7-52) U/L Alkaline Phosphatase (34-104) U/L Ammonia (18-72) umol/L Troponin I High Sens (0-20) pg/ml Total Protein (6.0-8.3) gm/dl Albumin (3.4-5.0) gm/dl Globulin (2.5-4.0) gm/dl Albumin/Globulin Ratio (0.9-2) Vitamin B1 15 (8-30) nmol/L Procalcitonin (0-0.5) ng/ml Random Cortisol mcg/dl Nasal Screen MRSA (PCR) (Negative) Babesia microti DNA PCR Not Detected (Not Detected) Blood Type Antibody Screen Crossmatch Diagnostic Findings Abdomen/Pelvis CT 09/25/22 21:01 Exam(s): CT ABDOMEN + PELVIS Without Contrast EXAM: CT Abdomen and Pelvis Without Intravenous Contrast CLINICAL HISTORY: Reason for exam: acute decompensation. TECHNIQUE: Axial computed tomography images of the abdomen and pelvis without intravenous contrast. CTDI is 10.09 mGy and DLP is 551.24 mGy-cm. Automated exposure control was utilized for the study. A dose lowering technique was utilized adhering to the principles of ALARA. COMPARISON: No relevant prior studies available. FINDINGS: Lung bases: Unremarkable. No mass. No consolidation. ABDOMEN: Liver: Unremarkable. Gallbladder and bile ducts: Unremarkable. No calcified stones. No ductal dilation. Pancreas: Unremarkable. No ductal dilation. Spleen: Unremarkable. No splenomegaly. Adrenals: Mild thickening of the adrenal glands. Kidneys and ureters: No hydronephrosis or delayed nephrogram. Decompressed urinary bladder. Stomach and bowel: Unremarkable. No obstruction. No mucosal thickening. PELVIS: Appendix: No findings to suggest acute appendicitis. Bladder: Unremarkable. No stones. Reproductive: Surgical clips in the pelvis, correlate for prostatectomy. Diffuse osteosclerosis, concerning for diffuse metastatic prostate cancer. ABDOMEN and PELVIS: Intraperitoneal space: Hepatic steatosis with heterogeneous liver parenchyma. Diffuse metastatic involvement cannot entirely be excluded. Correlate with LFTs. Mild abdominal ascites. No free air. Bones/joints: Grade 2 anterolisthesis of L5 on S1, measures 1.3 cm. Bilateral pars defects at L5. Severe bilateral foraminal stenosis. No acute fracture. No dislocation. Soft tissues: Fat-containing bilateral inguinal hernias. Vasculature: Unremarkable. No abdominal aortic aneurysm. Lymph nodes: Unremarkable. No enlarged lymph nodes. IMPRESSION: 1. Hepatic steatosis with heterogeneous liver parenchyma. Diffuse metastatic involvement cannot entirely be excluded. Correlate with LFTs. Mild abdominal ascites. 2. Surgical clips in the pelvis, correlate for prostatectomy. Diffuse osteosclerosis, concerning for diffuse metastatic prostate cancer. Electronically signed by: George Ramos MD 09/25/22 22:[address] 09/25/22 21:01 Exam(s): CT CHEST Without Contrast EXAM: CT Chest Without Intravenous Contrast CLINICAL HISTORY: Reason for exam: acute decompensation, SOB. TECHNIQUE: Axial computed tomography images of the chest without intravenous contrast. CTDI is 10.06 mGy and DLP is 292.95 mGy-cm. Automated exposure control was utilized for the study. A dose lowering technique was utilized adhering to the principles of ALARA. COMPARISON: No relevant prior studies available. FINDINGS: Lungs: Airspace consolidation of the RIGHT lung base, concerning for aspiration pneumonia. Small RIGHT parapneumonic effusion. No pneumothorax. Pleural space: See above. Heart: Cardiomegaly. No significant pericardial effusion. No significant coronary artery calcifications. Bones/joints: Diffuse osteosclerosis, concerning for diffuse metastatic disease. Correlate for any history of prostate cancer. Degenerative changes of the spine. No acute fracture. No dislocation. Soft tissues: Unremarkable. Vasculature: Atherosclerotic changes of the aorta. No thoracic aortic aneurysm. Lymph nodes: Unremarkable. No enlarged lymph nodes. Liver: Hepatic steatosis. IMPRESSION: 1. Airspace consolidation of the RIGHT lung base, concerning for aspiration pneumonia. Small RIGHT parapneumonic effusion. No pneumothorax. 2. Diffuse osteosclerosis, concerning for diffuse metastatic disease. Correlate for any history of prostate cancer. Electronically signed by: George Ramos MD 09/25/22 22:25 PM Venous Doppler Study 09/25/22 21:05 Exam(s): US VENOUS BILATERAL LOWER EXTREMITIES EXAM: US Duplex Bilateral Lower Extremities Veins CLINICAL HISTORY: Reason for exam: ?VTE/PE/DVT. TECHNIQUE: Real-time duplex ultrasound scan of the bilateral lower extremity veins integrating B-mode two-dimensional vascular structure, Doppler spectral analysis, color flow Doppler imaging and compression. COMPARISON: No relevant prior studies available. FINDINGS: Right deep veins: Unremarkable. No DVT in the right common femoral, femoral, proximal deep femoral or popliteal veins. The veins demonstrate normal color flow, are normally compressible, with normal phasic flow and/or augmentation response. Right superficial veins: Unremarkable. No thrombus in the visualized right great saphenous vein. Left deep veins: Unremarkable. No DVT in the left common femoral, femoral, proximal deep femoral or popliteal veins. The veins demonstrate normal color flow, are normally compressible, with normal phasic flow and/or augmentation response. Left superficial veins: Unremarkable. No thrombus in the visualized left great saphenous vein. Soft tissues: No acute findings. No popliteal cyst. IMPRESSION: Normal bilateral lower extremity duplex venous ultrasound. Electronically signed by: George Ramos MD 09/26/22 00:58 AM Chest X-Ray 09/25/22 22:19 SINGLE VIEW CHEST CLINICAL HISTORY: Central venous catheter placement. FINDINGS: An AP, portable, upright chest radiograph is compared to study dated 09/21/2022 and correlated with chest CT dated 09/25/2022. The examination is degraded by portable technique and apical lordotic positioning. A right internal jugular central venous catheter has been placed. The tip projects over the cavoatrial junction. The cardiomediastinal silhouette is unremarkable noting atherosclerotic calcification of the thoracic aorta. There is elevation of the right hemidiaphragm. Scarring/atelectasis is noted at the lung bases. There is a right pleural effusion. No pneumothorax is seen. The bony thorax is grossly intact. Again seen is evidence of extensive/diffuse osteoblastic metastatic disease. IMPRESSION: 1. A right internal jugular central venous catheter has been placed as above. No pneumothorax is seen post procedure. 2. Right pleural effusion. 3. Extensive/diffuse osteoblastic metastatic disease is again noted. ACT 112: Negative or not required by law. Electronically signed by: Antelmo Watts M.D. 09/25/2022 10:38 PM PG Care Time/CCT Total # of Minutes Spent Total Time Spent with Patient: Total time spent is greater than 50% in coordination of care (as documented) at patient's floor/unit and/or counseling patient: Coding Level of Care Code 07785 SUB INP/OBS CARE 3/50MIN Diagnoses Goals of care, counseling/discussion Z71.89 Abnormal LFTs R79.89 Prostate cancer metastatic to bone C61; C79.51 Hypertension I10 Anemia D64.9 Anemia type: unspecified type RAYMUNDO (acute kidney injury) N17.9 Hyponatremia E87.1 Metastasis to liver C78.7 Hyperkalemia E87.5 Acute renal failure N17.9 Septic shock A41.9; R65.21 Acute liver failure K72.00 Acute respiratory failure with hypoxia J96.01 Metabolic acidosis E87.20 (5) Anemia Anemia type: unspecified type Qualified Code(s): D64.9 - Anemia, unspecified
--- NOTE | 2022-09-26 10:33 | Electrocardiogram Report ---
Test Reason : Blood Pressure : / mmHG Vent. Rate : 170 BPM Atrial Rate : 098 BPM P-R Int : 000 ms QRS Dur : 008 ms QT Int : 184 ms P-R-T Axes : 000 000 213 degrees QTc Int : 309 ms Poor data quality, interpretation may be adversely affected Normal sinus rhythm Low voltage QRS Right bundle branch block Abnormal ECG When compared with ECG of 21-SEP-2022 20:42, no-change Confirmed by Juan José Peters ([id number]) on 09/26/2022 10:32:28 AM Referred By: REFERRED SELF Confirmed By:Juan José Peters
[2022-09-26] MEDS ORDERED: FUROSEMIDE 40 MG/4 ML VIAL IV ONE ×2 (10:44→10:45)
[2022-09-26] MEDS ORDERED: MoRPHine SULFATE 2 MG/ML CARP IV STA (12:55)
[2022-09-26] MEDS ORDERED: LORazepam 2 MG/1 ML VIAL IV PRN (12:56)
[2022-09-26] MEDS ORDERED: MoRPHine SULFATE 2 MG/ML CARP IV PRN (12:56)
--- NOTE | 2022-09-26 14:44 | Death Pronouncement Note ---
Date of Service September 26, 2022 Pronouncement Note Admission Date September 22, 2022 Date and Time of Date of : 09/26/22 Time of : 14:40 Preliminary Cause of (1) Septic shock: Additional Comments: 2nd to hypotension from progressive/aggressive prostate ca w mets to bone and new to liver w/ significant ascites and subsequent renal failure w/ respiratory failure w/ hypoxia from volume overloaded state (2) Liver failure: (3) Acute respiratory failure with hypoxia: (4) Acute renal failure: Summary Patient admitted w/ progressive weakness and elevated LFTs after bactrim use without prior known metastatic disease to the liver in patient with hx prostate cancer w/ mets to the bone MRCP obtained c/w masses c/w metastatic disease and progressive elevation in his liver function enzymes and was attempting to focus on symptom control and gettin g stable for hopeful d/c on hospice however patient became hypotensive going to the bathroom and was transferred to the ICU for presser support and interventions for acute renal/liver failure/septic shock with lactic >17 and concerns for aspiration pneumonia after emesis evening 56 continued progressive decline despite intervention/blood products/IV hydrocortisone/broad spectrum abx and low urine output/worsening renal failure and volume overloaded state and discussion was had with family (daughter/son) and decision to provide some morphine for pain reported/air hunger and was provided two 1mg doses and appeared w/ agonal breathing and family ok'd giving dose of ativen as transitioning off BiPAP to NC for comfort and then within 20 minutes with family at bedside with patient. Additional Data Confirmation of : no pulse, no respirations, no heart sounds and pupils fixed and dilated Pronouncement Performed By: Advanced Practice Provider (MARLON) Family: at bedside Attending/PCP notified?: Yes Attending physician: Tra Barnett MD
--- NOTE | 2022-09-26 14:47 | Discharge Summary ---
Date of Service September 26, 2022 Admission HPI Per Admitting Provider Santino Cobb is a pleasant 72yo male with history of prostate cancer initially diagnosed 8 years ago s/p radical prostatectomy performed at [facility] in 2012. He was treated with Casodex and Lupron and received 7 cycles of docetaxel. Patient unfortunately has had recurrence of his prostate cancer. Has had elevated PSA levels since 06/2020 with evidence of diffuse bony metastatic disease - last PSA 07/30/22 = 170. Patient's last chemotherapy was March 2022. He is apparently to be seen again at [facility] for a bone marrow biopsy and possible discussion of further treatments. Patient with baseline anemia. He had a blood transfusion on 09/15/21 for Hgb of 6.6. Daughter reports that patient developed a fairly high fever during the transfusion. He had some routine blood work sent and a UA and was told that he has a UTI (UA with nitrites, 1+ bilirubin and urobilinogen as well as trace LE, 10-30 WBC and 1+ bacteria) and was given a prescription for Bactrim. Daughter reports patient took two days of Bactrim then began feeling more ill. Over the last two days he has developed worsening fatigue, poor appetite and decreased oral intake with early satiety as well as abdominal distention. Brief episodes of confusion over the last 1-2 days as well. His daughter noted scleral icterus and jaundice today which prompted them to seek medical care. Patient reports generalized body pain and joint pain over the last 3 weeks with acute worsening over the last 2-3 days. Specifically complaining of bilateral knee pain and wrist pain. He has had low blood pressure at home as well. Otherwise - no report of fever, chills, cough, SOB, nausea, vomiting or diarrhea. He has had some constipation. In the ER he is afebrile, sinus tachycardia with HR of 124bpm, borderline lower blood pressure initially at 97/58. Lab results and images as below ER Course: NSS x 2L Ceftriaxone 2gm Fentanyl 50mcg Zofran 4mg IV Admission Exam Per Admitting Provider General: patient resting comfortably, NAD, ill in appearance, oriented x 4 Skin: warm, dry, intact, no rashes or lesions HEENT: NC/AT, PERRL, EOMI, +SCLERAL ICTERUS, conjunctiva without injection, external ear normal to inspection and nontender, nares patent, DRY mucus membranes, dentition intact, no oropharyngeal lesions, SUBLINGUAL JAUNDICE, neck supple, trachea midline, no LAD, no thyromegaly, no JVD Heart: +S1/S2, regular, tachycardic, no m/r/g Lungs: equal air entry bilaterally, no rales/rhonchi/wheezes Abd: +BS, soft, distended and tympanic to percussion, mild tenderness with palpation of RUQ, no rebound/guarding/peritonitis Ext: warm, 2+ pulses in UE/LE bilaterally, no clubbing/cyanosis, 2+ pitting edema of bilateral LE Neuro: nonfocal, patient AA&O x 4, speech intact, no facial droop, moving all extremities on command with equal strength 5/5, no asterixis Principal Diagnosis Acute Liver Failure secondary to metastatic disease Discharge Exam pupils fixed/nonreactive to light pulses not palpable no response to stimuli no respirations absent cardiac sounds Discharge Data Allergies Allergy/AdvReac Type Severity Reaction Status Date / Time No Known Allergies Allergy Verified 09/15/22 09:38 Consultations 09/21/22 22:37 ED Decision to Admit Stat 09/22/22 01:50 Consult Gastroenterology Routine Consult Oncology Routine 09/24/22 15:21 Consult Palliative Care Routine 09/25/22 23:22 Consult Director Career Services Routine Ordered Studies Chest X-Ray 09/21/22 20:17 XR chest 1V portable HISTORY: Sepsis COMPARISON: Chest 04/22/2022. FINDINGS: There are low lung volumes. The lungs are clear. No pleural effusions. No pneumothorax. The heart is normal in size. There are calcifications within the aortic knob. Diffuse osteoblastic metastatic disease again noted. IMPRESSION: 1. No acute process within the chest. 2. Diffuse osteoblastic metastatic disease again noted. ACT 112: Negative or not required by law. Electronically signed by: Corbin Brunson M.D. 09/22/2022 8:12 AM KUB X-Ray 09/21/22 20:23 KUB CLINICAL HISTORY: Constipation. FINDINGS: 2 AP supine abdominal radiographs are correlated with abdominal CT dated 04/19/2022. There is mild gaseous distention of the small bowel loops with no radiographic evidence of high-grade obstruction. No evidence of intraperitoneal free air is seen on these supine images. There are no abnormal abdominal calcifications. There is evidence of extensive/diffuse osteoblastic metastatic disease. Numerous surgical clips project over the pelvis. IMPRESSION: 1. There are gas-filled loops of small bowel with no radiographic evidence of high-grade obstruction. 2. Extensive/diffuse osteoblastic metastatic disease is again noted. Electronically signed by: Antelmo Watts M.D. 09/22/2022 8:28 AM Abdomen/Pelvis CT 09/21/22 22:37 Exam(s): CT ABDOMEN + PELVIS With Contrast IV Amt: 89 ml optiray 320 EXAM: CT Abdomen and Pelvis With Intravenous Contrast CLINICAL HISTORY: Reason for exam: jaundicce, metastatic prostate CA. TECHNIQUE: Axial computed tomography images of the abdomen and pelvis with intravenous contrast. Automated exposure control was utilized for the study. A dose lowering technique was utilized adhering to the principles of ALARA. CONTRAST: Patient received 89 ml optiray 320 of IV contrast COMPARISON: No relevant prior studies available. FINDINGS: Lung bases: Unremarkable. No mass. No consolidation. ABDOMEN: Liver: Unremarkable. No mass. Gallbladder and bile ducts: Unremarkable. No calcified stones. No ductal dilation. Pancreas: Unremarkable. No mass. No ductal dilation. Spleen: Unremarkable. No splenomegaly. Adrenals: Unremarkable. No mass. Kidneys and ureters: Unremarkable. No hydronephrosis or delayed nephrogram. Stomach and bowel: Unremarkable. No acute diverticulitis. No small bowel obstruction. No free intraperitoneal air. PELVIS: Appendix: No findings to suggest acute appendicitis. Bladder: Unremarkable. No mass. Reproductive: Prostatectomy. ABDOMEN and PELVIS: Intraperitoneal space: Abdominal ascites. No free air. Bones/joints: Diffuse osteosclerosis, consistent with diffuse osseous metastatic prostate cancer. No acute fracture. No dislocation. Soft tissues: Unremarkable. Vasculature: Diffuse, heterogeneous low attenuation throughout the liver, concerning for hepatic metastases (more likely) versus hepatic congestion (Budd-Chiari syndrome). Correlate for portal vein thrombosis. Consider hepatic ultrasound. Atherosclerotic changes of the aorta. No abdominal aortic aneurysm. Lymph nodes: Unremarkable. No enlarged lymph nodes. IMPRESSION: 1. Diffuse, heterogeneous low attenuation throughout the liver, concerning for hepatic metastases (more likely) versus hepatic congestion (Budd-Chiari syndrome). Correlate for portal vein thrombosis. Consider hepatic ultrasound. 2. Diffuse osteosclerosis, consistent with diffuse osseous metastatic prostate cancer. Electronically signed by: George Ramos MD 09/21/22 23:[address] 09/21/22 22:37 Exam(s): CT HEAD Without Contrast EXAM: CT Head Without Intravenous Contrast CLINICAL HISTORY: Reason for exam: AMS. TECHNIQUE: Axial computed tomography images of the head/brain without intravenous contrast. Automated exposure control was utilized for the study. A dose lowering technique was utilized adhering to the principles of ALARA. COMPARISON: No relevant prior studies available. FINDINGS: No acute intracranial hemorrhage. No midline shift or mass effect. The territorial thakkar-white matter differentiation is maintained throughout. Age-related cerebral volume loss. Periventricular and subcortical white matter hypoattenuation, consistent with chronic microangiopathy. The visualized orbits appear grossly unremarkable. The calvarium is intact. The visualized paranasal sinuses and mastoid air cells are grossly clear. IMPRESSION: No acute intracranial hemorrhage, midline shift, or mass effect. Electronically signed by: George Ramos MD 09/21/22 23:29 PM Portal Vein US 09/21/22 23:44 Exam(s): US LIVER EXAM: US Abdomen Limited CLINICAL HISTORY: Reason for exam: ?portal vein thrombosis?. TECHNIQUE: Real-time ultrasound of the abdomen with image documentation. COMPARISON: CT abdomen and pelvis, same day. FINDINGS/IMPRESSION: Severely heterogeneous hepatic echotexture, as noted on the concomitant abdominal CT scan. The portal vein is patent with hepatopedal flow (correct direction). Low index of suspicion for Budd-Chiari syndrome. Abdominal ascites. Electronically signed by: George Ramos MD 09/22/22 01:19 AM Cholangiopancreatography MRI 09/24/22 09:04 MRCP CLINICAL HISTORY: Elevated liver panel, jaundice, RUQ pain, nausea. Prostate cancer. TECHNIQUE: Utilizing a 1.5 Batsheva magnet and dedicated coil, multiplanar, multiecho imaging of the upper abdomen was performed utilizing heavily T2 weighted pulsing sequences without IV contrast. COMPARISON STUDY: CT of the abdomen and pelvis September 21, 2022. FINDINGS: Small right and trace left pleural effusions are present. The liver is replaced by innumerable hepatic masses. Index right hepatic dome lesion on axial image 6 of 33 measures 2.7 x 2.2 cm. The liver is enlarged and nodular. There is no intra or extrahepatic biliary ductal dilatation. A small amount of abdominal ascites is present. There is no pancreatic ductal dilatation. A few cystic lesions within the pancreatic head measure up to 1.6 cm. 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 No peripancreatic fluid is present. There is decreased T2 signal within the spleen. Bilateral adrenal nodularity has progressed since CT of April 19, 2022. There is no hydronephrosis. Multiple enlarged peripancreatic and juan carlos hepatis nodes are noted. Index juan carlos hepatis node on axial image 20 measures 3.9 x 1.8 cm. This adenopathy has developed since CT of April 19, 2022. Extensive skeletal metastatic disease is better depicted on prior CT. There is paravertebral soft tissue adjacent to the upper lumbar spine shown best on axial image 2233. There is also epidural extension. This favors paravertebral/epidural extension of tumor. Anasarca is present. Caliber of visualized small and large bowel are normal. IMPRESSION: 1. Innumerable hepatic masses consistent with metastatic disease. The primary tumor is not definitively identified. Hepatomegaly with nodular liver contour. Small amount of ascites. 2. No biliary or pancreatic ductal dilatation. 3. Pathologic juan carlos hepatis and peripancreatic lymphadenopathy. 4. Extensive skeletal metastatic disease, as shown on CT. Paravertebral/epidural extension of tumor within the upper lumbar spine which results in mild central canal stenosis. There may also result in neural foraminal narrowing, suboptimally assessed on this exam. 5. Bilateral adrenal nodularity which is nonspecific. ACT 112: Negative or not required by law. Electronically signed by: Jay Wiggins M.D. 09/24/2022 2:35 PM Abdomen/Pelvis CT 09/25/22 21:01 Exam(s): CT ABDOMEN + PELVIS Without Contrast EXAM: CT Abdomen and Pelvis Without Intravenous Contrast CLINICAL HISTORY: Reason for exam: acute decompensation. TECHNIQUE: Axial computed tomography images of the abdomen and pelvis without intravenous contrast. CTDI is 10.09 mGy and DLP is 551.24 mGy-cm. Automated exposure control was utilized for the study. A dose lowering technique was utilized adhering to the principles of ALARA. COMPARISON: No relevant prior studies available. FINDINGS: Lung bases: Unremarkable. No mass. No consolidation. ABDOMEN: Liver: Unremarkable. Gallbladder and bile ducts: Unremarkable. No calcified stones. No ductal dilation. Pancreas: Unremarkable. No ductal dilation. Spleen: Unremarkable. No splenomegaly. Adrenals: Mild thickening of the adrenal glands. Kidneys and ureters: No hydronephrosis or delayed nephrogram. Decompressed urinary bladder. Stomach and bowel: Unremarkable. No obstruction. No mucosal thickening. PELVIS: Appendix: No findings to suggest acute appendicitis. Bladder: Unremarkable. No stones. Reproductive: Surgical clips in the pelvis, correlate for prostatectomy. Diffuse osteosclerosis, concerning for diffuse metastatic prostate cancer. ABDOMEN and PELVIS: Intraperitoneal space: Hepatic steatosis with heterogeneous liver parenchyma. Diffuse metastatic involvement cannot entirely be excluded. Correlate with LFTs. Mild abdominal ascites. No free air. Bones/joints: Grade 2 anterolisthesis of L5 on S1, measures 1.3 cm. Bilateral pars defects at L5. Severe bilateral foraminal stenosis. No acute fracture. No dislocation. Soft tissues: Fat-containing bilateral inguinal hernias. Vasculature: Unremarkable. No abdominal aortic aneurysm. Lymph nodes: Unremarkable. No enlarged lymph nodes. IMPRESSION: 1. Hepatic steatosis with heterogeneous liver parenchyma. Diffuse metastatic involvement cannot entirely be excluded. Correlate with LFTs. Mild abdominal ascites. 2. Surgical clips in the pelvis, correlate for prostatectomy. Diffuse osteosclerosis, concerning for diffuse metastatic prostate cancer. Electronically signed by: George Ramos MD 09/25/22 22:[address] 09/25/22 21:01 Exam(s): CT CHEST Without Contrast EXAM: CT Chest Without Intravenous Contrast CLINICAL HISTORY: Reason for exam: acute decompensation, SOB. TECHNIQUE: Axial computed tomography images of the chest without intravenous contrast. CTDI is 10.06 mGy and DLP is 292.95 mGy-cm. Automated exposure control was utilized for the study. A dose lowering technique was utilized adhering to the principles of ALARA. COMPARISON: No relevant prior studies available. FINDINGS: Lungs: Airspace consolidation of the RIGHT lung base, concerning for aspiration pneumonia. Small RIGHT parapneumonic effusion. No pneumothorax. Pleural space: See above. Heart: Cardiomegaly. No significant pericardial effusion. No significant coronary artery calcifications. Bones/joints: Diffuse osteosclerosis, concerning for diffuse metastatic disease. Correlate for any history of prostate cancer. Degenerative changes of the spine. No acute fracture. No dislocation. Soft tissues: Unremarkable. Vasculature: Atherosclerotic changes of the aorta. No thoracic aortic aneurysm. Lymph nodes: Unremarkable. No enlarged lymph nodes. Liver: Hepatic steatosis. IMPRESSION: 1. Airspace consolidation of the RIGHT lung base, concerning for aspiration pneumonia. Small RIGHT parapneumonic effusion. No pneumothorax. 2. Diffuse osteosclerosis, concerning for diffuse metastatic disease. Correlate for any history of prostate cancer. Electronically signed by: George Ramos MD 09/25/22 22:25 PM Venous Doppler Study 09/25/22 21:05 Exam(s): US VENOUS BILATERAL LOWER EXTREMITIES EXAM: US Duplex Bilateral Lower Extremities Veins CLINICAL HISTORY: Reason for exam: ?VTE/PE/DVT. TECHNIQUE: Real-time duplex ultrasound scan of the bilateral lower extremity veins integrating B-mode two-dimensional vascular structure, Doppler spectral analysis, color flow Doppler imaging and compression. COMPARISON: No relevant prior studies available. FINDINGS: Right deep veins: Unremarkable. No DVT in the right common femoral, femoral, proximal deep femoral or popliteal veins. The veins demonstrate normal color flow, are normally compressible, with normal phasic flow and/or augmentation response. Right superficial veins: Unremarkable. No thrombus in the visualized right great saphenous vein. Left deep veins: Unremarkable. No DVT in the left common femoral, femoral, proximal deep femoral or popliteal veins. The veins demonstrate normal color flow, are normally compressible, with normal phasic flow and/or augmentation response. Left superficial veins: Unremarkable. No thrombus in the visualized left great saphenous vein. Soft tissues: No acute findings. No popliteal cyst. IMPRESSION: Normal bilateral lower extremity duplex venous ultrasound. Electronically signed by: George Ramos MD 09/26/22 00:58 AM Chest X-Ray 09/25/22 22:19 SINGLE VIEW CHEST CLINICAL HISTORY: Central venous catheter placement. FINDINGS: An AP, portable, upright chest radiograph is compared to study dated 09/21/2022 and correlated with chest CT dated 09/25/2022. The examination is degraded by portable technique and apical lordotic positioning. A right internal jugular central venous catheter has been placed. The tip projects over the cavoatrial junction. The cardiomediastinal silhouette is unremarkable noting atherosclerotic calcification of the thoracic aorta. There is elevation of the right hemidiaphragm. Scarring/atelectasis is noted at the lung bases. There is a right pleural effusion. No pneumothorax is seen. The bony thorax is grossly intact. Again seen is evidence of extensive/diffuse osteoblastic metastatic disease. IMPRESSION: 1. A right internal jugular central venous catheter has been placed as above. No pneumothorax is seen post procedure. 2. Right pleural effusion. 3. Extensive/diffuse osteoblastic metastatic disease is again noted. ACT 112: Negative or not required by law. Electronically signed by: Antelmo Watts M.D. 09/25/2022 10:38 PM Hospital Course (1) Liver failure: Patient admitted w/ progressive weakness and elevated LFTs after bactrim use for suspected UTI in setting of patient without prior known liver mets but did have hx prostate cancer w/ mets to the bone Had been stable as far as pain, moving bowels w/ lactulose (reported no BM x 2 weeks on admission) and eating/laughing w/ family afternoon 09/25 despite recent news/findings on MRCP c/w masses c/w metastatic disease and progressive elevation in his liver function enzymes and was attempting to focus on symptom control and getting stable for hopeful d/c on hospice however patient became hypotensive going to the bathroom and was transferred to the ICU for presser support and interventions for acute renal/liver failure/septic shock with lactic >17 and concerns for aspiration pneumonia after emesis evening 09/25 continued progressive decline despite intervention/blood products/IV hydrocortisone/broad spectrum abx and low urine output/worsening renal failure and volume overloaded state and discussion was had with family (daughter/son) and decision to provide some morphine for pain reported/air hunger and was provided two 1mg doses and appeared w/ agonal breathing and family ok'd giving dose of ativen as transitioning off BiPAP to NC for comfort and then within 20 minutes with family at bedside with patient at 14:40 September 26, 2022. (2) Goals of care, counseling/discussion: See prior note for lengthy discussion with son Romero and daughter Saray DNR/DNI his morning and made comfort - within several hours of martínez sitioning (3) Abnormal LFTs: 2nd to metastatic disease on MRCP w/ innumerable masses, primary tumor not definitely identified (hx prostate ca mets to bone, suspect agressive form) Heme/onc consulted during stay, poor ability to tolerate any chemo given blood counts, palliation as above for symptom control in time of dying with morphine/ativan (4) Prostate cancer metastatic to bone: as above, progressive decline with metastatic disease (5) Hypertension: then w/ subsequent hypotension from septic shock w/ lactic >17 (6) Anemia: further drop/bleeding from IJ/PRBC/plt administered but move to comfort as above (7) RAYMUNDO (acute kidney injury): further progressive kidney decline w/ hypotension/shock liver, possible TLS from tumor burdon to liver with elevated uric acid/Cr elevation/hyperkalemia (8) Hyponatremia: as above (9) Metastasis to liver: (10) Hyperkalemia: worsening hyperkalemia in setting of hypotension/shock liver, progressive mets (11) Acute renal failure: 2nd hypotension/shock, as above (12) Septic shock: broad spectrum abx initiated for aspiration pneumonia/septic shock lactic >17 continually comfort decided (13) Acute liver failure: 2nd to progressive meds/hypotension and shock (14) Acute respiratory failure with hypoxia: bipap in place, transitioned to NC as able for comfort/time with family (15) Metabolic acidosis: multifactorial as above (16) Renal failure: Total Time Total Time Spent Total Time Spent (In Minutes): 60 Discharge Plan Discharge Items Patient Disposition: Other Date/Time: 09/26/22 14:40 Supervising Physician Co-Signing Physician Notes The patient was seen by me before he . The family was present. The chart was reviewed. Case discussed with LU Melchor. Agree with assessment and plan Coding Level of Care Code None Diagnoses Liver failure K72.90 Goals of care, counseling/discussion Z71.89 Abnormal LFTs R79.89 Prostate cancer metastatic to bone C61; C79.51 Hypertension I10 Anemia D64.9 Anemia type: unspecified type RAYMUNDO (acute kidney injury) N17.9 Hyponatremia E87.1 Metastasis to liver C78.7 Hyperkalemia E87.5 Acute renal failure N17.9 Septic shock A41.9; R65.21 Acute liver failure K72.00 Acute respiratory failure with hypoxia J96.01 Metabolic acidosis E87.20 Renal failure N19
[2022-09-27 13:11] LABS: CMV IgG Antibody <0.60 U/mL; CMV IgM Antibody <30.00 AU/mL
[2022-09-27 14:57] LABS: EBV Nuclear Ag Antibody <18.00 U/mL; EBV Virus Capsid Ag IgG Ab <18.00 U/mL
== END 2022-09-26 18:18 | disposition expired | DRG 435 ==
LOC: ED 19:57 → SUATTDRO 09-22 00:53 → 2S 09-22 00:53 → 1E 09-25 21:15